=== PATIENT | female | born 1955 | race Caucasian/White ===

== ENCOUNTER → 2017-07-18 08:28 | Outpatient (CLI) | payer BC, SELFPAY ==
--- NOTE | 2017-07-18 08:30 | HPBD_ITS ---
STUDY: DUAL ENERGY X-RAY ABSORPTIOMETRY / DXA REASON FOR EXAM: Female, 62 years old. The patient is postmenopausal. Loss of height. TECHNIQUE: Bone Mineral Density (BMD) measurements of lumbar spine and bilateral hips were obtained. COMPARISON: Comparison is made with prior study dated September 27, 2010. FINDINGS: Lumbar Spine (L1-L4): g/cm2 (0.987) / T-score (-1.6) / Z-score (-0.1) Findings are suggestive of osteopenia with a moderate fracture risk. Left Femur Total: g/cm2 (0.723) / T-score (-2.3) / Z-score (-1.1) Left Femoral Neck: g/cm2 (0.703) / T-score (-2.4) / Z-score (-1.0) Right Femur Total: g/cm2 (0.701) / T-score (-2.4) / Z-score (-1.3) Right Femoral Neck: g/cm2 (0.678) / T-score (-2.6) / Z-score (-1.2) The T-Scores on the most recent prior examination were: Lumbar Spine (L1-L4): There has been worsening of bone density since the previous examination. Left Femur Total: which represents an improvement of 0.3%. Right Femur Total: which represents a worsening of 0.6%. HPBD/Dexa Bone Density Study (HP) IMPRESSION: The patient is considered osteoporotic as outlined below according to World Jeet Organization (WHO) criteria with a high fracture risk. There has been worsening of bone density since the previous examination. Reference Information: The T-score is the number of standard deviations above or below the standard which is normal for young adults at their peak bone mineral density. The World Health Organization (WHO) interprets the T-scores as follows: Above -1 Normal bone density Between -1 and -2.5 Osteopenia Equal to / or below -2.5 Osteoporosis As a practical clinical guideline, osteopenia may be graded as follows: Mild -1 through -1.5 Moderate -1.6 through -2.0 Severe -2.1 through -2.4 The Z-score is the number of standard deviations above or below age-matched controls. A Z-score of less than -1.5 would be considered abnormal. References: 1. NIH Osteoporosis and Related Bone Diseases http://www.osteo.org 2. International Society for Clinical Densitometry http://www.iscd.org 3. National Osteoporosis Foundation http://www.nof.org Electronically Signed: Rah Kenney MD at 10:07 EST Tel [phone], Service support ,
== END ==
PROVIDERS: Family Provider Family Medicine; PCP Family Medicine; Visit Provider Obstetrics & Gynecology
DX: M81.0 Age-related osteoporosis without current pathological fracture (principal); Z78.0 Asymptomatic menopausal state
CPT/HCPCS: 77080

== ENCOUNTER → 2017-07-19 16:02 | Outpatient (CLI) | payer BC, SELFPAY ==
[2017-07-19 17:49] LABS: Calcium,Total 9.1 mg/dL (8.5-10.1)
[2017-07-20 11:25] LABS: Vitamin D,25 Hydroxy 12.2 ng/mL (19.95-100.01)
== END ==
PROVIDERS: Family Provider Family Medicine; PCP Family Medicine; Visit Provider Obstetrics & Gynecology
DX: M85.80 Other specified disorders of bone density and structure, unspecified site (principal)
CPT/HCPCS: 36415; 82306; 82310

== ENCOUNTER → 2017-08-06 15:48 | Outpatient (CLI) | payer BC, SELFPAY | PROVIDERS: Family Provider Family Medicine; PCP Family Medicine; Visit Provider Family Medicine | DX: J02.9 Acute pharyngitis, unspecified (principal) | CPT/HCPCS: 87070 ==

== ENCOUNTER → 2018-01-08 08:01 | Outpatient (CLI) | payer BC, SELFPAY ==
--- NOTE | 2018-01-08 08:03 | BI_ITS ---
MAMMOGRAPHY - BILATERAL SCREENING REASON FOR EXAM: Female, 62 years old. Routine annual screening examination. PERTINENT HISTORY: Non-contributory. TECHNIQUE: Digital bilateral breast inocencia (3D mammographic acquisition) in the CC and MLO projections. 2-D mediolateral oblique (MLO) and craniocaudad (CC) views of both breasts were obtained. CAD: Full Field Digital Mammography with Computer Added Detection was performed. COMPARISON: Comparison is made with prior examination dated December 18, 2016 and December 09, 2015. FINDINGS: Breast Composition: The breasts are heterogeneously dense, which may obscure small masses. There are no dominant masses or suspicious calcifications. No other significant abnormalities are identified. There has been no significant change since the prior study. BI/SCREENING MAMM (CAD), BILAT IMPRESSION: Stable bilateral screening mammogram. Yearly follow-up mammogram recommended. (A) ASSESSMENT CATEGORY: BIRADS Category 1: Negative. A letter regarding these results will be sent to the patient by the facility within 30 days. Approximately 10% of breast cancers are not detected by mammography. A normal mammogram should not delay biopsy of a clinically suspicious abnormality. [id number] Electronically Signed: Rah Kenney MD at 10:15 EDT Tel [phone], Service support ,
== END ==
PROVIDERS: Family Provider Family Medicine; PCP Family Medicine; Visit Provider Obstetrics & Gynecology
DX: Z12.31 Encounter for screening mammogram for malignant neoplasm of breast (principal)
CPT/HCPCS: 77063; 77067

== ENCOUNTER → 2018-01-18 08:58 | Outpatient (CLI) | payer BC, SELFPAY ==
[2018-01-18 11:21] LABS: Calcium,Total 9.3 mg/dL (8.5-10.1)
[2018-01-18 11:32] LABS: Vitamin D,25 Hydroxy 55.4 ng/mL (29.95-100.01)
== END ==
PROVIDERS: Visit Provider Obstetrics & Gynecology
DX: M81.0 Age-related osteoporosis without current pathological fracture (principal)
CPT/HCPCS: 36415; 82306; 82310

== ENCOUNTER → 2019-01-09 07:23 | Outpatient (CLI) | payer BC, SELFPAY ==
--- NOTE | 2019-01-09 06:59 | BI_ITS ---
MAMMOGRAPHY - BILATERAL SCREENING REASON FOR EXAM: Female, 63 years old. Routine annual screening examination. PERTINENT HISTORY: Aunt with breast cancer. TECHNIQUE: Digital bilateral breast lavon (3D mammographic acquisition) in the CC and MLO projections. 2-D mediolateral oblique (MLO) and craniocaudad (CC) views of both breasts were obtained. CAD: Full Field Digital Mammography with Computer Added Detection was performed. COMPARISON: Comparison is made with prior examination dated January 08, 2018 and December 18, 2016. FINDINGS: Breast Composition: The breasts are heterogeneously dense, which may obscure small masses. There are no dominant masses or suspicious calcifications. No other significant abnormalities are identified. There has been no significant change since the prior study. BI/SCREEN MAMM (CAD) W/LAVON BILAT IMPRESSION: Stable bilateral screening mammogram. Yearly follow-up mammogram recommended. (A) ASSESSMENT CATEGORY: BIRADS Category 1: Negative. A letter regarding these results will be sent to the patient by the facility within 30 days. Approximately 10% of breast cancers are not detected by mammography. A normal mammogram should not delay biopsy of a clinically suspicious abnormality. [id number] Electronically Signed: Rah Kenney, at 9:35 EDT , Service support ,
== END ==
PROVIDERS: Family Provider Family Medicine; PCP Family Medicine; Referring Provider Obstetrics & Gynecology; Visit Provider Obstetrics & Gynecology
DX: Z12.31 Encounter for screening mammogram for malignant neoplasm of breast (principal)
CPT/HCPCS: 77063; 77067

== ENCOUNTER → 2019-02-24 09:44 | Outpatient (CLI) | payer MEDICARE, OTHER, SELFPAY ==
[2019-02-24 12:37] LABS: Anion Gap 5 (5-15); BUN 20 mg/dL (7-18); BUN/Creat Ratio 24.5 RATIO (10-20); Calcium,Total 8.7 mg/dL (8.5-10.1); Chloride 107 mmol/L (98-107); Cholesterol 173 mg/dL (200); Creatinine, Serum 0.82 mg/dL (0.55-1.02); EST Glomerular Filtration Rate 75 mL/min (>60); Est Glom Filt Rate - Afr Amer 90 mL/min (>60); Glucose 90 mg/dL (74-106); High Density Lipoprotein 70 mg/dL; Potassium 3.7 mmol/L (3.5-5.1); Sodium Level 142 mmol/L (136-145); Triglycerides 99 mg/dL; Very Low Density Lipoprotein 20 mg/dL (5-40)
== END ==
PROVIDERS: Family Provider Family Medicine; PCP Family Medicine; Visit Provider Family Medicine
DX: Z13.1 Encounter for screening for diabetes mellitus (principal); Z13.220 Encounter for screening for lipoid disorders
CPT/HCPCS: 36415; 80048; 80061

== ENCOUNTER → 2019-08-06 09:48 | Outpatient (CLI) | payer MEDICARE, OTHER, SELFPAY ==
--- NOTE | 2019-08-06 09:56 | BD_ITS ---
STUDY: DUAL ENERGY X-RAY ABSORPTIOMETRY / DXA REASON FOR EXAM: Female, 64 years old. Unsure of mitzi- age. Pat is 124# and 4 and quot;11.5 and quot; a loss of 2 and quot; per pat. Takes calcium. Fosamax for 2 years. Exercises moderately and mother has osteo. TECHNIQUE: Bone Mineral Density (BMD) measurements of lumbar spine and bilateral hips were obtained. COMPARISON: Comparison is made with prior study dated July 18, 2017. FINDINGS: Lumbar Spine (L1-L4): g/cm2 (0.976) / T-score (-1.6) / Z-score (0.0) Findings are suggestive of osteopenia with a moderate fracture risk. Left Femur Total: g/cm2 (0.726) / T-score (-2.2) / Z-score (-1.0) Left Femoral Neck: g/cm2 (0.722) / T-score (-2.3) / Z-score (-0.8) Right Femur Total: g/cm2 (0.685) / T-score (-2.6) / Z-score (-1.3) Right Femoral Neck: g/cm2 (0.697) / T-score (-2.5) / Z-score (-1.0) The T-Scores on the most recent prior examination were: Lumbar Spine (L1-L4): There has been improvement of bone density since the previous examination. Left Femur Total: which represents an improvement of 0.4%. Right Femur Total: which represents a worsening of 2.3%. BD/Dexa Bone Density Study IMPRESSION: The patient is considered osteoporotic as outlined below according to World Jeet Organization (WHO) criteria with a high fracture risk. There has been improvement of bone density since the previous examination. Reference Information: The T-score is the number of standard deviations above or below the standard which is normal for young adults at their peak bone mineral density. The World Health Organization (WHO) interprets the T-scores as follows: Above -1 Normal bone density Between -1 and -2.5 Osteopenia Equal to / or below -2.5 Osteoporosis As a practical clinical guideline, osteopenia may be graded as follows: Mild -1 through -1.5 Moderate -1.6 through -2.0 Severe -2.1 through -2.4 The Z-score is the number of standard deviations above or below age-matched controls. A Z-score of less than -1.5 would be considered abnormal. References: 1. NIH Osteoporosis and Related Bone Diseases http://www.osteo.org 2. International Society for Clinical Densitometry http://www.iscd.org 3. National Osteoporosis Foundation http://www.nof.org Electronically Signed: Rah Kenney, at 15:18 EST , Service support ,
== END ==
LOC: OPBD 09:50
PROVIDERS: PCP Family Medicine; Referring Provider Obstetrics & Gynecology; Visit Provider Obstetrics & Gynecology
DX: M81.0 Age-related osteoporosis without current pathological fracture (principal)
CPT/HCPCS: 77080

== ENCOUNTER → 2020-04-19 | Outpatient (CLI) | payer MEDICARE, OTHER, SELFPAY | END | disposition home or self-care (01) | LOC: LABSPEC 15:25 | PROVIDERS: PCP Family Medicine; Referring Provider Family Medicine; Visit Provider Family Medicine | DX: Z20.828 Contact with and (suspected) exposure to other viral communicable diseases (principal) | CPT/HCPCS: 87635; U0003 ==

== ENCOUNTER → 2020-11-03 16:14 | Outpatient (CLI) | payer MEDICARE, OTHER, SELFPAY ==
[2020-11-03 18:08] LABS: T4 Free Direct 1.15 ng/dL (0.76-1.46); Thyroid Stim Hormone (TSH) 1.24 uIU/mL (0.358-3.74)
== END ==
PROVIDERS: PCP Family Medicine; Visit Provider Obstetrics & Gynecology
DX: E03.9 Hypothyroidism, unspecified (principal)
CPT/HCPCS: 36415; 84439; 84443; 84481

== ENCOUNTER → 2020-11-16 14:43 | Outpatient (CLI) | payer MEDICARE, OTHER, SELFPAY ==
--- NOTE | 2020-11-16 14:47 | US_ITS ---
STUDY: THYROID ULTRASOUND REASON FOR EXAM: Female, 65 years old. GOITER TECHNIQUE: Ultrasound evaluation of the thyroid was performed with real-time and static zaldivar-scale imaging. COMPARISON: None. FINDINGS: RIGHT LOBE: The right lobe of the thyroid gland measures 4.3 x 1.9 x 1.6 cm. There is a homogeneous echotexture. There is a 3 x 3 x 2 mm cystic structure right thyroid. LEFT LOBE: The left lobe of the thyroid gland measures 4.2 x 1.6 x 1.2 cm. There is a homogeneous echotexture. There are no demonstrated solid, cystic or complex lesions. ISTHMUS: The isthmus measures 2 mm . The regional lymph nodes are normal. US/Thyroid IMPRESSION: Nearly homogeneous normal-sized bilateral thyroid. Small benign appearing cyst right thyroid. Follow-up thyroid ultrasound if appropriate in 6 months or as clinically appropriate. Electronically Signed: Liz Delacruz MD at 6:25 EDT Tel , Service support ,
--- NOTE | 2020-11-16 15:00 | BI_ITS ---
MAMMOGRAPHY - BILATERAL SCREENING REASON FOR EXAM: Female, 65 years old. Routine annual screening examination. PERTINENT HISTORY: Aunt with breast cancer. TECHNIQUE: Digital bilateral breast lavon (3D mammographic acquisition) in the CC and MLO projections. 2-D mediolateral oblique (MLO) and craniocaudad (CC) views of both breasts were obtained. CAD: Full Field Digital Mammography with Computer Added Detection was performed. COMPARISON: Comparison is made with prior examination dated 01/09/2019 and 01/08/2018. FINDINGS: Breast Composition: The breasts are heterogeneously dense, which may obscure small masses. There are no dominant masses or suspicious calcifications. No other significant abnormalities are identified. There has been no significant change since the prior study. BI/SCRN MAMM (CAD)W/LAVON BILAT IMPRESSION: Stable bilateral screening mammogram. Yearly follow-up mammogram recommended. (A) ASSESSMENT CATEGORY: BIRADS Category 1: Negative. A letter regarding these results will be sent to the patient by the facility within 30 days. Approximately 10% of breast cancers are not detected by mammography. A normal mammogram should not delay biopsy of a clinically suspicious abnormality. [id number] Electronically Signed: Rah Kenney MD at 15:31 EDT , Service support ,
== END ==
PROVIDERS: PCP Family Medicine; Referring Provider Obstetrics & Gynecology; Visit Provider Obstetrics & Gynecology
DX: Z12.31 Encounter for screening mammogram for malignant neoplasm of breast (principal); E04.9 Nontoxic goiter, unspecified; E03.9 Hypothyroidism, unspecified
CPT/HCPCS: 76536; 77063; 77067

== ENCOUNTER → 2021-04-01 | Outpatient (CLI) | payer MEDICARE, OTHER, SELFPAY | END | disposition home or self-care (01) | PROVIDERS: PCP Family Medicine; Visit Provider Family Medicine | DX: J01.90 Acute sinusitis, unspecified (principal) | CPT/HCPCS: 87635; U0005; U0003 ==

== ENCOUNTER → 2021-05-23 10:14 | Outpatient (CLI) | payer MEDICARE, OTHER, SELFPAY ==
--- NOTE | 2021-05-23 10:25 | US_ITS ---
STUDY: THYROID ULTRASOUND REASON FOR EXAM: Female, 65 years old. Follow-up for known cyst TECHNIQUE: Ultrasound evaluation of the thyroid was performed with real-time and static zaldivar-scale imaging. COMPARISON: None. FINDINGS: RIGHT LOBE: The right lobe of the thyroid gland measures 4.3 x 1.7 x 1.4 cm. There is a homogeneous echotexture. There is a stable 2 x 2 x 2 mm cyst. LEFT LOBE: The left lobe of the thyroid gland measures 4.3 x 1.6 x 1.0 cm. There is a homogeneous echotexture. There are no demonstrated solid, cystic or complex lesions. ISTHMUS: The isthmus measures 3 mm. The regional lymph nodes are normal. US/Thyroid IMPRESSION: Stable homogeneous ultrasound was stable 2 mm cyst in the right lobe. No suspicious solid mass or hyperemia. No specific follow-up needed Electronically Signed: Chandrakant Schneider MD at 16:23 EST , Service support ,
== END ==
PROVIDERS: PCP Family Medicine; Referring Provider Obstetrics & Gynecology; Visit Provider Obstetrics & Gynecology
DX: E04.1 Nontoxic single thyroid nodule (principal)
CPT/HCPCS: 76536

== ENCOUNTER → 2021-10-21 | Outpatient (CLI) | payer MEDICARE, OTHER, SELFPAY ==
[2021-10-21 12:46] LABS: Vitamin D,25 Hydroxy 50.1 ng/mL
[2021-10-21 12:47] LABS: Calcium,Total 9.9 mg/dL (8.5-10.1)
== END | disposition home or self-care (01) ==
LOC: WOBLAB 11:03
PROVIDERS: PCP Family Medicine; Visit Provider Obstetrics & Gynecology
DX: E55.9 Vitamin D deficiency, unspecified (principal)
CPT/HCPCS: 36415; 82306; 82310

== ENCOUNTER → 2021-11-17 | Outpatient (CLI) | payer MEDICARE, OTHER, SELFPAY ==
--- NOTE | 2021-11-17 09:05 | BI_ITS ---
MAMMOGRAPHY - BILATERAL SCREENING REASON FOR EXAM: Female, 66 years old. Routine annual screening examination. PERTINENT HISTORY: Non-contributory. TECHNIQUE: Digital bilateral breast lavon (3D mammographic acquisition) in the CC and MLO projections. 2-D mediolateral oblique (MLO) and craniocaudad (CC) views of both breasts were obtained. CAD: Full Field Digital Mammography with Computer Added Detection was performed. COMPARISON: Comparison is made with prior study dated 11/16/2020 and 01/09/2019. FINDINGS: Breast Composition: The breasts are heterogeneously dense, which may obscure small masses. There are no dominant masses or suspicious calcifications. No other significant abnormalities are identified. There has been no significant change since the prior study. BI/SCRN MAMM (CAD)W/LAVON BILAT IMPRESSION: Stable bilateral screening mammogram. Yearly follow-up mammogram recommended. (A) ASSESSMENT CATEGORY: BIRADS Category 1: Negative. A letter regarding these results will be sent to the patient by the facility within 30 days. Approximately 10% of breast cancers are not detected by mammography. A normal mammogram should not delay biopsy of a clinically suspicious abnormality. [id number] Electronically Signed: Rah Kenney MD at 9:48 EDT ,
--- NOTE | 2021-11-17 09:25 | BD_ITS ---
STUDY: DUAL ENERGY X-RAY ABSORPTIOMETRY / DXA REASON FOR EXAM: Female, 66 years old. 733.00OsteoporosisBONE DENSITY REASON FOR EXAM TECHNIQUE: Bone Mineral Density (BMD) measurements of lumbar spine and bilateral hips were obtained. COMPARISON: Comparison is made with prior study dated 08/06/2019. FINDINGS: Lumbar Spine (L1-L4): g/cm2 (0.894) / T-score (-1.3) / Z-score (0.7) Findings are suggestive of osteopenia with a low fracture risk. Left Femur Total: g/cm2 (0.664) / T-score (-2.3) / Z-score (-0.9) Left Femoral Neck: g/cm2 (0.580) / T-score (-2.4) / Z-score (-0.7) Right Femur Total: g/cm2 (0.649) / T-score (-2.4) / Z-score (-1.0) Right Femoral Neck: g/cm2 (0.577) / T-score (-2.5) / Z-score (-0.8) The T-Scores on the most recent prior examination were: Lumbar Spine (L1-L4): There has been improvement of bone density since the previous examination. Left Femur Total: which represents a worsening of 0.5%. Right Femur Total: which represents an improvement of 3.4%. BD/Dexa Bone Density Study IMPRESSION: The patient is considered osteopenic as outlined below according to World Jeet Organization (WHO) criteria with a high fracture risk. There has been improvement of bone density since the previous examination. Reference Information: The T-score is the number of standard deviations above or below the standard which is normal for young adults at their peak bone mineral density. The World Health Organization (WHO) interprets the T-scores as follows: Above -1 Normal bone density Between -1 and -2.5 Osteopenia Equal to / or below -2.5 Osteoporosis As a practical clinical guideline, osteopenia may be graded as follows: Mild -1 through -1.5 Moderate -1.6 through -2.0 Severe -2.1 through -2.4 The Z-score is the number of standard deviations above or below age-matched controls. A Z-score of less than -1.5 would be considered abnormal. References: 1. NIH Osteoporosis and Related Bone Diseases www osteo.org 2. International Society for Clinical Densitometry www iscd.org 3. National Osteoporosis Foundation www nof.org Electronically Signed: Rah Kenney MD at 12:54 EDT ,
== END | disposition home or self-care (01) ==
LOC: OPBD 09:03
PROVIDERS: PCP Family Medicine; Referring Provider Obstetrics & Gynecology; Visit Provider Obstetrics & Gynecology
DX: Z12.31 Encounter for screening mammogram for malignant neoplasm of breast (principal); M81.0 Age-related osteoporosis without current pathological fracture
CPT/HCPCS: 77063; 77067; 77080

== ENCOUNTER → 2022-06-01 | Outpatient (CLI) | payer MEDICARE, OTHER, SELFPAY ==
[2022-06-01 17:55] LABS: Absolute Lymphocyte Count 2.35 X10^3/uL (0.83-4.51); Absolute Neutrophil Count 4.7 X10^3/uL (2.0-7.7); Basophil# 0.02 X10^3/uL; Basophil% 0.3 % (0-1); Eosinophil# 0.12 X10^3/uL; Eosinophils% 1.5 % (0-5); Hematocrit 44.8 % (37-47); Hemoglobin 14.9 g/dL (12.0-15.0); Lymphocyte # 2.35 X10^3/ul (0.83-4.51); Lymphocyte % 29.8 % (19-41); Mean Corp Hgb Conc 33.3 g/dL (32-36); Mean Corpuscular Volume 90.3 fL (81-99); Mean Platelet Vol. 10.8 fl (6.2-12.0); Monocyte% 8.9 % (0-10); NRBC Flagged by Analyzer 0 % (0-5); Neutrophil # 4.67 X10^3/uL (2.7-7.7); Neutrophil % 59.2 % (47-70); Platelet Count 302 K/mm3 (150-450); RBC Distribution Width CV 12.8 % (11.6-14.6); RBC Distribution Width SD 41.9 fl (35.1-43.9); Red Blood Count 4.96 M/mm3 (4.2-5.4); White Blood Count 7.9 K/mm3 (4.4-11.0)
[2022-06-01 18:17] LABS: BUN 14 mg/dL (7-18); Creatinine, Serum 0.92 mg/dL (0.55-1.02); Glucose 82 mg/dL (74-106)
[2022-06-01 18:18] LABS: ALB/GLOB Ratio 1.4 RATIO (0.9-2.4); AST(SGOT) 13 U/L (15-37); Alanine Aminotransfer ALT/SGPT 20 U/L (13-56); Alkaline Phosphatase 94 U/L (45-117); Anion Gap 7 (5-15); BUN/Creat Ratio 15.2 RATIO (10-20); Calcium,Total 9.8 mg/dL (8.5-10.1); Chloride 105 mmol/L (98-107); EST Glomerular Filtration Rate 64 mL/min (>60); Est Glom Filt Rate - Afr Amer 78 mL/min (>60); Ferritin 88 ng/mL (8-252); Globulin 2.9 g/dL (2.2-4.2); Potassium 3.9 mmol/L (3.5-5.1); Protein, Total 6.9 g/dL (6.4-8.2); Sodium Level 142 mmol/L (136-145)
[2022-06-01 19:36] LABS: Vitamin B12 283 pg/mL (211-911)
== END | disposition home or self-care (01) ==
LOC: MFPLAB 16:07
PROVIDERS: PCP Family Medicine; Referring Provider Family Medicine; Visit Provider Family Medicine
DX: R53.83 Other fatigue (principal)
CPT/HCPCS: 36415; 80053; 82607; 82728; 84443; 85025

== ENCOUNTER → 2022-07-10 | Outpatient (CLI) | payer MEDICARE, OTHER, SELFPAY ==
[2022-07-10 10:44] LABS: Vitamin B12 > 2000 pg/mL (211-911)
== END | disposition home or self-care (01) ==
LOC: MFPLAB 08:31
PROVIDERS: PCP Family Medicine; Visit Provider Nurse Practitioner Family
DX: E53.8 Deficiency of other specified B group vitamins (principal)
CPT/HCPCS: 36415; 82607

== ENCOUNTER → 2022-10-23 | Outpatient (CLI) | payer MEDICARE, OTHER, SELFPAY ==
[2022-10-23 10:51] LABS: Vitamin B12 902 pg/mL (211-911)
== END | disposition home or self-care (01) ==
LOC: MFPLAB 08:38
PROVIDERS: PCP Family Medicine; Visit Provider Family Medicine
DX: E53.8 Deficiency of other specified B group vitamins (principal)
CPT/HCPCS: 36415; 82607

== ENCOUNTER → 2023-01-03 | Outpatient (CLI) | payer MEDICARE, OTHER, SELFPAY | END | disposition home or self-care (01) | PROVIDERS: PCP Family Medicine; Visit Provider Family Medicine | DX: J02.9 Acute pharyngitis, unspecified (principal) | CPT/HCPCS: 87070 ==

== ENCOUNTER → 2023-01-10 | Outpatient (CLI) | payer MEDICARE, OTHER, SELFPAY ==
--- NOTE | 2023-01-10 07:45 | BI_ITS ---
MAMMOGRAPHY - BILATERAL SCREENING REASON FOR EXAM: Female, 67 years old. Routine annual screening examination. PERTINENT HISTORY: Non-contributory. TECHNIQUE: Digital bilateral breast lavon (3D mammographic acquisition) in the CC and MLO projections. 2-D mediolateral oblique (MLO) and craniocaudad (CC) views of both breasts were obtained. CAD: Full Field Digital Mammography with Computer Added Detection was performed. COMPARISON: Comparison is made with prior study dated November 17, 2021 and November 16, 2020. FINDINGS: Breast Composition: The breasts are heterogeneously dense, which may obscure small masses. There are no dominant masses or suspicious calcifications. No other significant abnormalities are identified. There has been no significant change since the prior study. BI/SCRN MAMM (CAD)W/LAVON BILAT IMPRESSION: Stable bilateral screening mammogram. Yearly follow-up mammogram recommended. (A) ASSESSMENT CATEGORY: BIRADS Category 1: Negative. A letter regarding these results will be sent to the patient by the facility within 30 days. Approximately 10% of breast cancers are not detected by mammography. A normal mammogram should not delay biopsy of a clinically suspicious abnormality. [id number] Electronically Signed: Rah Kenney MD at 9:41 EDT ,
== END | disposition home or self-care (01) ==
LOC: OPBI 07:44
PROVIDERS: PCP Family Medicine; Referring Provider Nurse Practitioner Women's Health; Visit Provider Nurse Practitioner Women's Health
DX: Z12.31 Encounter for screening mammogram for malignant neoplasm of breast (principal)
CPT/HCPCS: 77063; 77067

== ENCOUNTER → 2023-04-30 | Outpatient (CLI) | payer MEDICARE, OTHER, SELFPAY ==
[2023-04-30 13:38] LABS: Vitamin B12 995 pg/mL (211-911)
== END | disposition home or self-care (01) ==
LOC: MFPLAB 11:13
PROVIDERS: PCP Family Medicine; Visit Provider Family Medicine
DX: E53.8 Deficiency of other specified B group vitamins (principal)
CPT/HCPCS: 36415; 82607

== ENCOUNTER → 2023-05-07 | Outpatient (CLI) | payer MEDICARE, OTHER, SELFPAY ==
[2023-05-07 17:44] LABS: Absolute Lymphocyte Count 1.65 X10^3/uL (0.83-4.51); Absolute Neutrophil Count 3.6 X10^3/uL (2.0-7.7); Basophil# 0.04 X10^3/uL; Basophil% 0.6 % (0-1); Eosinophil# 0.44 X10^3/uL; Hematocrit 44.2 % (37-47); Hemoglobin 14.7 g/dL (12.0-15.0); Lymphocyte # 1.65 X10^3/ul (0.83-4.51); Lymphocyte % 26.1 % (19-41); Mean Corp Hgb Conc 33.3 g/dL (32-36); Mean Corpuscular Hgb 29.6 pg (27.0-32.0); Mean Corpuscular Volume 88.9 fL (81-99); Mean Platelet Vol. 10.3 fl (6.2-12.0); Monocyte% 9.5 % (0-10); NRBC Flagged by Analyzer 0 % (0-5); Neutrophil # 3.57 X10^3/uL (2.7-7.7); Neutrophil % 56.5 % (47-70); Platelet Count 302 K/mm3 (150-450); RBC Distribution Width CV 12.6 % (11.6-14.6); RBC Distribution Width SD 41.1 fl (35.1-43.9); Red Blood Count 4.97 M/mm3 (4.2-5.4); White Blood Count 6.3 K/mm3 (4.4-11.0)
[2023-05-07 17:59] LABS: Erythrocyte Sedimentation Rate 9 mm/hr (0-30)
[2023-05-07 18:00] LABS: Vitamin D,25 Hydroxy 68.5 ng/mL
[2023-05-07 18:33] LABS: ALB/GLOB Ratio 1.1 RATIO (0.9-2.4); AST(SGOT) 18 U/L (15-37); Alanine Aminotransfer ALT/SGPT 16 U/L (13-56); Albumin, Serum 3.7 g/dL (3.2-5.0); Alkaline Phosphatase 105 U/L (45-117); Anion Gap 7 (5-15); BUN 16 mg/dL (7-18); BUN/Creat Ratio 17.1 RATIO (10-20); CRP < 2.90 mg/L (0.0-3.0); Calcium,Total 9.3 mg/dL (8.5-10.1); Chloride 106 mmol/L (98-107); Creatinine, Serum 0.94 mg/dL (0.55-1.02); EST Glomerular Filtration Rate 63 mL/min (>60); Est Glom Filt Rate - Afr Amer 76 mL/min (>60); Globulin 3.4 g/dL (2.2-4.2); Glucose 96 mg/dL (74-106); Protein, Total 7.1 g/dL (6.4-8.2); Sodium Level 140 mmol/L (136-145); Thyroid Stim Hormone (TSH) 1.14 uIU/mL (0.358-3.74)
[2023-05-09 14:09] LABS: ANTINUCLEAR ANTIBODIES DIRECT Negative (Negative)
== END | disposition home or self-care (01) ==
PROVIDERS: PCP Family Medicine; Visit Provider Family Medicine
DX: R53.83 Other fatigue (principal); R82.90 Unspecified abnormal findings in urine
CPT/HCPCS: 36415; 80053; 82306; 84443; 85025; 85652; 86038; 86140; 87086

== ENCOUNTER 2023-05-15 07:00 | Emergency (ER) | payer MEDICARE, OTHER, SELFPAY ==
[2023-05-15 07:00] VITALS: BP 129/70; PULSE 83; RESP 13; TEMP 36.1; O2SAT 99; BMI 29.4
[2023-05-15 07:04] VITALS: O2SAT 97
--- NOTE | 2023-05-15 07:15 | CT_ITS ---
INDICATION: fall/LOC EXAMINATION: CT BRAIN - CT Head or Brain W/O Contrast Injection TECHNIQUE: Multiple axial images were obtained of the head without intravenous contrast. A radiation dose optimization technique was used for this scan. IV Contrast dosage and agent: None. COMPARISON: None FINDINGS: BRAIN PARENCHYMA: No intra- or extra-axial hemorrhage. No evidence of acute infarct. No intracranial mass or mass effect. Unremarkable white matter for age. There is preservation of the zaldivar/white matter interface. Posterior fossa structures are unremarkable. Mild carotid and vertebral atherosclerosis. CSF SPACES: Cerebral volume appropriate for age. No hydrocephalus. Basal cisterns are patent. CALVARIUM, SKULL BASE, PARANASAL SINUSES AND MASTOID AIR CELLS:No acute osseous finding. Mild left maxillary sinus mucoperiosteal thickening.. Mastoid air cells are clear. ORBITS: Both globes, extraocular muscles, optic nerves and retrobulbar fat appear unremarkable. ASPECTS Score for Acute Strokes: 10 CT/Brain/Head without Contrast IMPRESSION: No CT evidence of acute intracranial hemorrhage or injury. Mild atherosclerosis. Electronically Signed: Noah Barrett MD at 7:58 EST ,
--- NOTE | 2023-05-15 07:17 | EDS_ITS ---
HPI HPI - Fall History of Present Illness Chief Complaint: Fall Informant: patient, family and EMS Occured/Mechanism Occurred: Today (Just prior to arrival) Narrative Narrative: Patient woke up and was coming down the stairs, she felt lightheaded and then does not remember the fall, but apparently passed out and fell down 3 steps to the landing below. She denies remembering any other prodromal symptoms other than the lightheadedness. She states she feels like she hurt her mid and low back but denies any other injuries. states she has a bruise on her right shoulder, and there was a chunk of hair on the railing or something nearby where she fell. She has cataract surgery coming up and has been feeling anxious about it, and so her doctor prescribed her sertraline because of that and she took the first pill last night. In addition, her appetite has been very poor lately and so is her oral intake. She is on no anticoagulants for any reason, does not feel like she hit her head, no history of DVT or PE that she knows of, no recent immobilization, hospitalization, or surgery. No history of heart problems that she knows of. Most of her medical issues in the past focused around vitamin deficiencies. PFSH PFSH Medical History no medical history no medical history Home Medications sertraline 50 mg tablet 50 mg PO Q24H 05/15/23 [History Last Taken Unknown] tramadol 50 mg tablet 50 mg PO Q6H PRN pain 3 days #12 tabs 05/15/23 [Rx Last Taken Unknown] Allergy/AdvReac Type Severity Reaction Status Date / Time minocycline Allergy Other Verified 05/15/23 07:04 azithromycin AdvReac Mild Upset Verified 05/15/23 07:04 [From Zithromax Z-Victor M] Stomach Social History Smoking Status: Never smoker ROS ROS ED Constitutional Constitutional ED: Reports anorexia; Denies chills or fever(s) Eyes Eyes: Denies change in vision or diplopia ENT ENT ED: Denies ear pain, epistaxis, facial pain or rhinorrhea Cardiovascular Cardiovascular: Denies chest pain or palpitations Respiratory/Chest Respiratory/Chest: Denies cough or dyspnea Gastrointestinal Gastrointestinal: Denies abdominal pain, diarrhea, melena, nausea or vomiting Genitourinary Genitourinary ED: Denies dysuria or hematuria Musculoskeletal Musculoskeletal: Reports back pain; Denies extremity pain or neck pain Integumentary Denies abscess, Abrasions, laceration or rash Neurologic Neurologic: Denies confusion, headache(s), paresthesias or weakness EXAM Physical Exam Const Vital Signs: 05/15/23 07:00 05/15/23 07:04 05/15/23 08:00 Temperature 97 F L Temperature Source Temporal Pulse Rate 83 103 H Respiratory Rate 13 26 H Respiratory Effort Normal Non-Labored Respiratory Depth Normal Respiratory Pattern Normal Blood Pressure 129/70 H 141/81 H Blood Pressure Mean 89 101 Pulse Ox 99 97 102 Oxygen Delivery Method Room Air Room Air Room Air 05/15/23 09:10 Temperature Temperature Source Pulse Rate 82 Respiratory Rate 14 Respiratory Effort Respiratory Depth Respiratory Pattern Blood Pressure 137/73 H Blood Pressure Mean 94 Pulse Ox 96 Oxygen Delivery Method Room Air Positive well nourished and well developed General Appearance ED: well developed and NAD HEENT Reports TM's clear and nasal mucous membranes and turbinates normal atraumatic Face and Sinus: Negative for facial tenderness Tympanic Membrane ED: Yes TM's clear Eyes PERRL and EOMs intact bilaterally Visual Acuity: other Other Details: no entrapment or pain with extraocular movements Neck full ROM and supple General: Negative for tenderness Chest Wall inspection of chest normal and palpation of chest normal Chest: symmetrical chest wall rise; Negative for crepitus or tenderness Resp normal respiratory effort and clear to auscultation bilaterally Percussion: other equal BS bilat Cardio no murmurs Rate: regular rate; Negative for bradycardia or tachycardic Rhythm: regular rhythm GI normal to inspection, nondistended, normoactive bowel sounds, soft to palpation and non-tender Back/Spine Cervical Spine: Negative for cervical spine tenderness Thoracic Spine / Upper Back: thoracic spinal tenderness other (No objective sign of trauma or step-off. Tender through most of the mid and lower thoracic midline mildly.) Lumbar Spine / Lower Back: lumbar spinal tenderness L1 (Mild no signs of trauma or step-off) Extremity normal to inspection and full ROM Extremity Narrative: Intact 2+ dorsalis pedis and radial pulses bilaterally General Extremety ED: Negative for tenderness Neuro oriented x3, CN's II-XII intact bilaterally, moves all extremities, no focal motor deficits and no sensory deficits noted Nyla Coma Scale: document GCS findings Spontaneous Obeys Commands Oriented 15 Sensorium / Orientation: awake and alert Psych mental status grossly normal and thought process normal Skin no wounds Lesions: no lesions Rashes: no rashes MDM MDM MDM Narrative Medical decision making narrative: Patient's injury seems to only be her back. She has a mild tenderness in the right trapezius muscle with there is no bony prominence, she has full range of motion of all joints of all 4 extremities including her right shoulder so I am at a low suspicion for major joint injury anywhere. Differential for the cause of her fall includes dehydration, medication reaction since she took her first dose of sertraline before she went to bed last night, pulmonary embolus, dysrhythmia, acute FL, symptomatic anemia, symptomatic bradycardia. This is not an exclusive list. Labs, chest x-ray were obtained in addition to an EKG which is normal, chest x-ray 1 view on my interpretation normal, she has no tenderness when I palpate the ribs or compress the rib cage laterally, however when she was getting EKG she told the word processor technician and me later that her left chest was bothering her a little, fairly nondescript and not severely, nonpleuritic. Although she tumbled down several steps and has some contusions, I did a D-dimer in order to try to rule out pulmonary embolus, but it came back significantly elevated over 10. Therefore even though we sent her for CT of the head, we sent her back for CTA of the chest in order to rule out pulmonary embolus and also evaluate for any occult injuries in the left hemithorax. Prior to that thoracic and lumbar x-rays were obtained, 2 views of the thoracic spine on my interpretation is positive for fracture of T9, 3 views of the lumbar spine on my interpretation is negative for fracture. She was offered analgesics and declined. CT of the head was obtained in order to rule out intracranial injury, I reviewed the images and report which I agree with, negative for anything acute. CTA of the chest images I reviewed, I agree with the report as well, basically shows the T9 compression fracture, and no other intrathoracic injury and no evidence of a pulmonary embolus as etiology for her syncope episode. She eventually excepted some ibuprofen for pain, before that we got her up and she was a little wobbly so we waited a while The second troponin which was negative, she got the ibuprofen and then she stood up with family and she did very well and felt fine and ready to go home. She was offered admission but declined. Will have her follow-up with spine as an outpatient, she was given lifting and bending restrictions until then, and she is comfortable with that plan. We discussed options for prescription she would like a prescription for tramadol, we discussed the unlikely potential for altered mental status and reasons to stop it, she can also take [id number] medications and other methods of supportive care in the meantime Lab Data Attestation: I reviewed the patient's lab results. Labs: Laboratory Results - last 24 hr 05/15/23 05/15/23 07:05 09:40 WBC 7.4 RBC 4.82 Hgb 14.4 Hct 42.2 MCV 87.6 MCH 29.9 MCHC 34.1 RDW Std Deviation 39.6 RDW Coeff of Luis Manuel 12.5 Plt Count 259 MPV 10.4 Immature Gran % (Auto) 1.300 H Neut % (Auto) 63.7 Lymph % (Auto) 21.5 [place] % (Auto) 7.8 Eos % (Auto) 5.0 Baso % (Auto) 0.7 Absolute Neuts (auto) 4.7 Absolute Lymphs (auto) 1.60 Nucleated RBC % 0 D-Dimer Quant (PE/DVT) 10.65 H* Sodium 140 Potassium 4.0 Chloride 109 H Carbon Dioxide 27.0 Anion Gap 4 L BUN 18 Creatinine 0.81 Estim Creat Clear Calc 68.34 Est GFR (MDRD) Af Amer 90 Est GFR (MDRD) Non-Af 74 BUN/Creatinine Ratio 22.1 H Glucose 129 H Calcium 9.3 Troponin I High Sens 6 7 Radiography Diagnostic Testing: Clinical Impression(s) from Imaging Studies Brain CT 05/15/23 07:15 IMPRESSION: No CT evidence of acute intracranial hemorrhage or injury. Mild atherosclerosis. Electronically Signed: Noah Barrett MD at 7:58 EST , Chest X-Ray 05/15/23 07:35 IMPRESSION: Degenerative changes, as described above. No demonstrated acute cardiopulmonary process. Electronically Signed: John Madison MD at 8:06 EST , Lumbar Spine X-Ray 05/15/23 07:35 IMPRESSION: Degenerative changes of the spine, as detailed above. Electronically Signed: John Madison MD at 8:38 EST Reading Location ID and State: [address] [place] [address] , Service support , Thoracic Spine X-Ray 05/15/23 07:35 IMPRESSION: 1. There is a mild acute compression fracture T9 vertebral body with 20% loss of height and slight cortical offset/displacement. No additional acute fractures or compression deformities are present. Electronically Signed: John Madison MD at 8:36 EST Reading Location ID and State: [address] [place] [address] , Service support , Chest CTA 05/15/23 08:05 IMPRESSION: 1. An acute compression fracture of the T9 vertebral body with mild cortical offset and with approximately 20% loss of height is present. No additional acute vertebral body or posterior element fractures are seen. 2. Negative CTA chest examination, without a demonstrated pulmonary embolism or arterial dissection. Electronically Signed: John Madison MD at 9:11 EST Reading Location ID and State: [address] [place] [address] , Service support , Rhythm Strip Rhythm Strip: Sinus Rhythm Rate: 85 Ectopy: None EKG Initial EKG: Attestation: I personally reviewed and interpreted this EKG as follows: Interpretation: Sinus Rhythm and No Acute Injury Pattern (nml EKG) Discharge Plan Triage Chief Complaint: Fall ED Provider: Guzman Layne Dx/Rx/DC Orders Clinical Impression: Compression fracture of T9 vertebra, Fall down steps, Contusion of upper back, Syncope, Mild dehydration Instructions: Compression Fx Prescriptions: New tramadol 50 mg tablet 50 mg PO Q6H PRN (Reason: pain) 3 Days Qty: 12 0RF No Action sertraline 50 mg tablet 50 mg PO Q24H Primary Care Provider: Gabriela Coffman Referrals: Davy Chan, [Med Staff - Active Staff] - As soon as possible Gabriela Coffman, [Primary Care Provider] - 5-7 Days Activity Restrictions/Additional Instructions: Tylenol 650-1000 mg every 4-6 hours as needed for pain Ibuprofen 400-600 mg every 6-8 hours as needed for pain May add the tramadol to this as prescribed as needed. Ice to affected area as needed for pain. No lifting more than 5-10 pounds, limit how much you bend over to pick something up. Use pain as your guide and limit activities if it hurts. Disposition Disposition: Home, Self Care
[2023-05-15] MEDS: 0.9% Normal Saline (1000mL) 1,000 ML 999 ML IV (07:19)
[2023-05-15 07:23] LABS: Absolute Neutrophil Count 4.7 X10^3/uL (2.0-7.7); Basophil# 0.05 X10^3/uL; Basophil% 0.7 % (0-1); Eosinophil# 0.37 X10^3/uL; Hematocrit 42.2 % (37-47); Hemoglobin 14.4 g/dL (12.0-15.0); Lymphocyte % 21.5 % (19-41); Mean Corp Hgb Conc 34.1 g/dL (32-36); Mean Corpuscular Hgb 29.9 pg (27.0-32.0); Mean Corpuscular Volume 87.6 fL (81-99); Mean Platelet Vol. 10.4 fl (6.2-12.0); Monocyte# 0.58 X10^3/uL; Monocyte% 7.8 % (0-10); NRBC Flagged by Analyzer 0 % (0-5); Neutrophil # 4.74 X10^3/uL (2.7-7.7); Neutrophil % 63.7 % (47-70); Platelet Count 259 K/mm3 (150-450); RBC Distribution Width CV 12.5 % (11.6-14.6); RBC Distribution Width SD 39.6 fl (35.1-43.9); Red Blood Count 4.82 M/mm3 (4.2-5.4); White Blood Count 7.4 K/mm3 (4.4-11.0)
--- NOTE | 2023-05-15 07:30 | NURSING ---
NO OLD EKGS
--- NOTE | 2023-05-15 07:35 | RAD_ITS ---
STUDY: X-RAY - LUMBAR SPINE REASON FOR EXAM: Female, 67 years old. fall/injury TECHNIQUE: 2 view(s) of the lumbar spine were obtained. COMPARISON: None FINDINGS: Normal lumbar lordosis. There is no substantial scoliosis. There is a normal alignment of the vertebrae. Moderate disc space narrowing and anterior endplate spurring is present at L2-L3. Mild disc space narrowing is present at L3-L4. The remaining disc spaces are preserved. No visualized acute fracture or compression deformity. A densely calcified right uterine fibroid is present. The soft tissue structures are unremarkable. RAD/Lumbar Spine 2 or 3 Views IMPRESSION: Degenerative changes of the spine, as detailed above. Electronically Signed: John Madison MD at 8:38 EST ,
--- NOTE | 2023-05-15 07:35 | RAD_ITS ---
STUDY: X-RAY CHEST REASON FOR EXAM: Female, 67 years old. fall TECHNIQUE: Single AP portable view of the chest. COMPARISON: None. FINDINGS: The lungs are clear and expanded. There is no demonstrated pleural abnormality. Normal size heart. Normal mediastinum and cosmo. Normal visualized pulmonary arteries. There is atherosclerotic calcification of the aortic arch with tortuosity. There are diffuse degenerative changes of the visualized thoracic spine. Normal visualized ribs, clavicles, and shoulders. There is no demonstrated abnormality of the visualized soft tissue structures of the upper abdomen. RAD/Chest 1 View IMPRESSION: Degenerative changes, as described above. No demonstrated acute cardiopulmonary process. Electronically Signed: John Madison MD at 8:06 [facility] ,
--- NOTE | 2023-05-15 07:35 | RAD_ITS ---
STUDY: X-RAY - THORACIC SPINE REASON FOR EXAM: Female, 67 years old. fall/injury TECHNIQUE: 3 view(s) of the thoracic spine were obtained. COMPARISON: None. FINDINGS: There is a mild acute compression fracture T9 vertebral body with 20% loss of height and slight cortical offset/displacement. No additional acute fractures or compression deformities are present. Normal kyphosis of the thoracic spine. There is no substantial scoliosis. There is multilevel endplate spondylosis of the thoracic vertebrae. Normal disc space heights. The soft tissue structures are unremarkable. RAD/Thoracic Spine 2 Views IMPRESSION: 1. There is a mild acute compression fracture T9 vertebral body with 20% loss of height and slight cortical offset/displacement. No additional acute fractures or compression deformities are present. Electronically Signed: John Madison MD at 8:36 EST ,
[2023-05-15 07:41] LABS: Anion Gap 4 (5-15); BUN 18 mg/dL (7-18); BUN/Creat Ratio 22.1 RATIO (10-20); Calcium,Total 9.3 mg/dL (8.5-10.1); Chloride 109 mmol/L (98-107); Creatinine, Serum 0.81 mg/dL (0.55-1.02); EST Glomerular Filtration Rate 74 mL/min (>60); Est Glom Filt Rate - Afr Amer 90 mL/min (>60); Estimated Creatinine Clearance 68.34 ml/min; Glucose 129 mg/dL (74-106); Sodium Level 140 mmol/L (136-145); Troponin-I HS (w/2H Reflex) 6 pg/mL (3.0-54.0)
[2023-05-15 08:00] VITALS: BP 141/81; PULSE 103; RESP 26; O2SAT 102
[2023-05-15 08:04] LABS: D-Dimer Quantitative (DVT/PE) 10.65 FEU/ug/m (0.27-0.49)
--- NOTE | 2023-05-15 08:05 | CT_ITS ---
STUDY: CTA CHEST REASON FOR EXAM: Female, 67 years old. syncope, elevated d-dimer RADIATION DOSAGE (If Supplied By Facility): CTDIvol = ( 4.52 ) mGy, DLP = ( 155.08 ) mGycm TECHNIQUE: The examination was performed with the intravenous administration of IV 100mL Isovue-370. Post-processing of the angiographic images was performed, with multiplanar reformation and 3D reconstruction. Individualized dose optimization techniques were used for this CT. COMPARISON: Chest x-ray dated May 15, 2023. X-ray of the thoracic spine dated May 15, 2023 FINDINGS: No visualized consolidation or pulmonary edema or pleural effusion or pneumothorax. No nodules are present. No masses are seen. No visualized sternal fractures or mediastinal hematoma. An acute compression fracture of the T9 vertebral body with mild cortical offset and with approximately 20% loss of height is present. No additional acute vertebral body or posterior element fractures are seen. No visualized large displaced rib fractures. Normal enhancement of the main pulmonary artery and right and left pulmonary arteries. Normal enhancement of the bilateral peripheral pulmonary arteries. There is no demonstrated pulmonary embolism. Normal thoracic aorta and visualized great vessels. There is no demonstrated aortic dissection. Normal heart and pericardium. There are no demonstrated calcifications of the coronary arteries. Normal mediastinum. Normal hilar regions. Normal visualized trachea and bronchi. The lungs are well expanded. Normal pulmonary parenchyma. Normal pleura. Normal chest wall structures. Unremarkable remaining osseous structures. Normal visualized upper abdomen. CT/CTA Chest W/WO Contrast IMPRESSION: 1. An acute compression fracture of the T9 vertebral body with mild cortical offset and with approximately 20% loss of height is present. No additional acute vertebral body or posterior element fractures are seen. 2. Negative CTA chest examination, without a demonstrated pulmonary embolism or arterial dissection. Electronically Signed: John Madison MD at 9:11 EST ,
--- NOTE | 2023-05-15 08:06 | ED.RN ---
LAB CALLED CRITICAL D-DIMER OF 10.65. DR NEFF AWARE
[2023-05-15 09:10] VITALS: BP 137/73; PULSE 82; RESP 14; O2SAT 96
[2023-05-15 09:21] LABS: Reflex Troponin-HS? (from REC) Y
[2023-05-15] MEDS: Ibuprofen 600 MG Tablet PO (09:32)
[2023-05-15 10:08] LABS: Troponin-I HS 7 pg/mL (3.0-54.0)
[2023-05-15 11:35] VITALS: BP 131/61; PULSE 80; RESP 16; O2SAT 98
== END 2023-05-15 11:36 | disposition home or self-care (01) ==
PROVIDERS: Emergency Provider Emergency Medicine; PCP Family Medicine; Referring Provider Emergency Medicine; Visit Provider Emergency Medicine
DX: S22.079A Unspecified fracture of T9-T10 vertebra, initial encounter for closed fracture (principal); R55 Syncope and collapse; S40.011A Contusion of right shoulder, initial encounter; W10.9XXA Fall (on) (from) unspecified stairs and steps, initial encounter; S20.229A Contusion of unspecified back wall of thorax, initial encounter; D64.9 Anemia, unspecified; E86.0 Dehydration; R00.1 Bradycardia, unspecified; Z79.899 Other long term (current) drug therapy
CPT/HCPCS: 70450; 71045; 71275; 72070; 72100; 80048; 84484; 85025; 85379; 93005; 96360; 96361; 99284; J7030; Q9967; A4216

== ENCOUNTER → 2023-05-22 | Outpatient (CLI) | payer MEDICARE, OTHER, SELFPAY ==
--- NOTE | 2023-05-22 07:12 | US_ITS ---
INDICATION: anorexia, abd. Pain EXAMINATION: Ultrasound US Abdomen Limited (quadrant) TECHNIQUE: Hill scale and color doppler imaging was performed of the right upper quadrant. COMPARISON: No relevant prior comparison study available FINDINGS: LIVER: The liver is normal in size and echogenicity measuring about 15.4 cm in length. The portal vein is patent with normal hepatopedal flow. No focal hepatic lesion. There is no free fluid. GALLBLADDER AND BILIARY TREE: No shadowing gallstone, pericholecystic fluid or gallbladder wall thickening is demonstrated in the gallbladder wall measures 1 mm AP. The proximal common bile duct measures 4 mm, which is within normal limits for the patient''s age. Sonographic Díaz''s sign: Negative. PANCREAS: No focal abnormality is demonstrated in the visualized portions of the pancreas. No pancreatic ductal dilatation. RIGHT KIDNEY: The right kidney measures 10.1 cm in length. The renal cortex measures 1.3 cm. There is a 1.4 cm cyst in the right kidney. US/Abdomen Limited IMPRESSION: 1. No acute sonographic abnormality is demonstrated in the right upper quadrant. 2. Small right renal cyst. Electronically Signed: Darin Kebede MD at 12:39 EST ,
== END | disposition home or self-care (01) ==
LOC: US 07:12
PROVIDERS: PCP Family Medicine; Referring Provider Family Medicine; Visit Provider Family Medicine
DX: R11.0 Nausea (principal); R10.9 Unspecified abdominal pain; R63.0 Anorexia
CPT/HCPCS: 76705

== ENCOUNTER → 2023-06-19 | Outpatient (CLI) | payer MEDICARE, OTHER, SELFPAY ==
--- NOTE | 2023-06-19 09:46 | NM_ITS ---
CLINICAL: 67-year-old female with history of abdominal pain and nausea. RADIONUCLIDE HEPATOBILIARY SCINTIGRAPHY COMPARISON: Abdominal ultrasound report 05/22/2023 FINDINGS: Following the intravenous administration of 6.0 mCi of 99m Tc Mebrofenin, hepatobiliary images reveal: 1. Relatively prompt and homogeneous radiopharmaceutical concentration is noted by a normal sized liver. No parenchymal defects are identified. 2. Gallbladder activity is identified at 15 minutes post radiopharmaceutical administration. 3. Small intestinal tract is observed at 30 minutes following tracer injection. 4. Washout of the radiopharmaceutical by the hepatic parenchyma appears qualitatively normal. Cholecystokinin (0.02 ug/kg) was administered intravenously over a 30-minute period. The post CCK gallbladder ejection fraction calculated at 20 minutes following Cholecystokinin administration was noted to be 23.0 % (normal greater than 35%). There is scintigraphic evidence of post cholecystokinin duodenal-gastric reflux. CA/Hepatobilliary Img w/Pharm Int IMPRESSION: 1. ABNORMAL 99m Tc Mebrofenin hepatobiliary imaging examination with Cholecystokinin. A. A gallbladder ejection fraction calculated to be less than 35% following the administration of Cholecystokinin is consistent with the presence of functional hepatobiliary disease (gallbladder and/or sphincter of Oddi dyskinesia) and/or organic hepatobiliary disease (chronic acalculous cholecystitis and/or cystic duct syndrome) in patients with intermediate to high pretest probabilities of hepatobiliary illness. (Alice Pedersen et al, Journal of Nuclear Medicine 32:1695, 1990). B. There is scintigraphic evidence of post CCK duodenal-gastric reflux. (Bienvenido et al, Nucl Med Angelina Lucie Press pg. 35, 1980). Electronically Signed: Nicholas Moreno DO at 8:46 EST ,
== END | disposition home or self-care (01) ==
LOC: NM 09:45
PROVIDERS: PCP Family Medicine; Referring Provider Family Medicine; Visit Provider Family Medicine
DX: R10.9 Unspecified abdominal pain (principal)
CPT/HCPCS: 78227; A9537; J2805

== ENCOUNTER → 2023-08-24 | Outpatient (CLI) | payer MEDICARE, OTHER, SELFPAY ==
[2023-08-24 12:59] LABS: ALB/GLOB Ratio 1.1 RATIO (0.9-2.4); AST(SGOT) 19 U/L (15-37); Alanine Aminotransfer ALT/SGPT 16 U/L (13-56); Albumin, Serum 3.6 g/dL (3.2-5.0); Alkaline Phosphatase 110 U/L (45-117); Anion Gap 4 (5-15); BUN 12 mg/dL (7-18); BUN/Creat Ratio 15.8 RATIO (10-20); Calcium,Total 9.6 mg/dL (8.5-10.1); Chloride 109 mmol/L (98-107); Creatinine, Serum 0.76 mg/dL (0.55-1.02); EST Glomerular Filtration Rate 80 mL/min (>60); Est Glom Filt Rate - Afr Amer 97 mL/min (>60); Globulin 3.4 g/dL (2.2-4.2); Glucose 101 mg/dL (74-106); Potassium 4.1 mmol/L (3.5-5.1); Sodium Level 141 mmol/L (136-145)
[2023-08-24 13:01] LABS: Vitamin D,25 Hydroxy 42.8 ng/mL
== END | disposition home or self-care (01) ==
PROVIDERS: PCP Family Medicine; Referring Provider Family Medicine; Visit Provider Family Medicine
DX: S22.070A Wedge compression fracture of T9-T10 vertebra, initial encounter for closed fracture (principal); X58.XXXA Exposure to other specified factors, initial encounter; M81.0 Age-related osteoporosis without current pathological fracture
CPT/HCPCS: 36415; 80053; 82306

== ENCOUNTER 2023-09-20 08:18 | Day surgery (SDC) | payer MEDICARE, OTHER, SELFPAY ==
[2023-09-20 08:39] VITALS: BP 132/88; PULSE 87; RESP 16; TEMP 36.4; O2SAT 98; BMI 23.6
[2023-09-20] MEDS: Lactated Ringers 1,000 ML 15 ML IV (08:50)
--- NOTE | 2023-09-20 09:30 | EGD_PTH ---
PATIENT: LEANDRA GUZMAN [place] [facility] [place][id number] AGE/SX: 68/F ROOM: RE09/20/[address]: Dr. Guido Sharma MD : 1955 BED: DIS: 09/20/2023 SPEC #: [id number] RECD: 09/20/23 13:03 STATUS: HEATHER LEONARD #: [id number] SAL: 09/20/23 09:[address]: Guido Sharma DEPT: SURGICAL PATHOLOGY RECD BY: Mariana Lopes ENTERED: 09/20/23 13:30 SP TYPE: EGD BIOPSY OTHR DR: Shayne Diaz MD Tissues: A - Gastric mucous membrane B - Gastric fundus C - Esophagus, NOS D - Gastric mucous membrane E - Ascending colon F - Ascending colon G - Cecum, NOS H - Ascending colon I - Sigmoid colon biopsy J - Transverse colon Procedures: Surgery Specimen Level IV HEADER OPERATION: Colonoscopy, EGD with biopsy, Polypectomy PRE-OP DIAGNOSIS: Right upper quadrant abdominal pain, Abnormal biliary HIDA scan, Acid reflux, Bloating symptom, Screening for colon cancer TISSUE SUBMITTED: A- Antrum biopsy, B- Fundic polyp biopsy, C- Gastroesophageal junction biopsy, D-Cardia polyp biopsy, E- Ascending colon polyp #1, F-Ascending colon polyp #2, G- Cecal polyp, H- Ascending colon polyp #3, I- Sigmoid colon polyp, J- Proximal transverse polyp MICROSCOPIC DIAGNOSIS A. Antrum, biopsy: Mild gastritis. See microscopic description and comment. B. Fundic polyp, biopsy: Mild gastritis. See microscopic description. C. Gastroesophageal junction, biopsy: Fragments of gastroesophageal mucosa with chronic inflammation. Intestinal metaplasia (goblet cell metaplasia) not identified. See comment. D. Cardia polyp, biopsy: Fundic gland polyp. E. Ascending colon polyp #1, polypectomy: Fragments of tubular adenoma. F. Ascending colon polyp #2, polypectomy: Fragments of tubular adenoma with focal high-grade dysplasia. G. Cecal polyp, polypectomy: Tubular adenoma. H. Ascending colon polyp #3, polypectomy: Tubular adenoma. I. Sigmoid colon polyp, polypectomy: Fragments of tubular adenoma. J. Proximal transverse polyp, polypectomy: Tubular adenoma with focal high-grade dysplasia. SJ/mr 09/21/23 COMMENT A. The results of immunohistochemistry for Helicobacter pylori will be reported separately ([id number]). C. Alcian blue/PAS stain with matched control is used in the evaluation of the specimen. Case has been reviewed in consultation with Dr. Gray who concurs with the above diagnosis. IDC:AM MICROSCOPIC DESCRIPTION Slides are reviewed. A. The specimen shows fragments of gastric mucosa with chronic inflammatory cell infiltrates in the lamina propria consisting of lymphocytes and plasma cells, consistent with mild chronic gastritis. B. The specimen shows fragments of gastric mucosa with chronic inflammatory cell infiltrates in the lamina propria consisting of lymphocytes and plasma cells, consistent with mild chronic gastritis. No obvious changes consistent with hyperplastic or fundic polyp are noted. GROSS DESCRIPTION A. Received in fixative is one container labeled with the patient's name and designated Antrum biopsy. The specimen consists of two irregular fragments of light shah soft tissue that in aggregate measure 0.6 x 0.3 x 0.1 cm. The specimen is totally submitted in one cassette. B. Received in fixative is one container labeled with the patient's name and designated Fundic polyp biopsy. The specimen consists of one irregular fragment of light shah soft tissue that measures 0.5 x 0.3 x 0.1 cm. The specimen is totally submitted in one cassette. C. Received in fixative is one container labeled with the patient's name and designated GE junction biopsy. The specimen consists of two irregular fragments of light shah soft tissue that in aggregate measure 0.5 x 0.3 x 0.1 cm. The specimen is totally submitted in one cassette. D. Received in fixative is one container labeled with the patient's name and designated Cardia polyp biopsy. The specimen consists of one irregular fragment of light shah soft tissue that measures 0.3 x 0.3 x 0.1 cm. The specimen is totally submitted in one cassette. E. Received in fixative is one container labeled with the patient's name and designated Ascending colon polyp. The specimen consists of multiple irregular fragments of light shah soft tissue that in aggregate measure 1.0 x 0.4 x 0.1 cm. The specimen is totally submitted in one cassette. F. Received in fixative is one container labeled with the patient's name and designated Ascending polyp (2). The specimen consists of two irregular fragments of light shah soft tissue that in aggregate measure 0.6 x 0.3 x 0.1 cm. The specimen is totally submitted in one cassette. G. Received in fixative is one container labeled with the patient's name and designated Cecal polyp biopsy. The specimen consists of one irregular fragment of light shah soft tissue that measures 0.3 x 0.3 x 0.1 cm. The specimen is totally submitted in one cassette. H. Received in fixative is one container labeled with the patient's name and designated Ascending polyp (3). The specimen consists of a shah-pink polyp measuring 0.7 x 0.7 x 0.3cm. The specimen is totally submitted in one cassette. I. Received in fixative is one container labeled with the patient's name and designated Sigmoid colon polyp. The specimen consists of multiple irregular fragments of light shah soft tissue that in aggregate measure 1.5 x 0.4 x 0.1 cm. The specimen is totally submitted in one cassette. J. Received in fixative is one container labeled with the patient's name and designated Proximal transverse polyp. The specimen consists of a shah-pink polyp measuring 1.0 x 0.5 x 0.5cm. The specimen is bisected and submitted entirely in one cassette. BECKY/ 09/20/23 TC:1 [place]: [id number]
--- NOTE | 2023-09-20 09:30 | IMM_PTH ---
PATIENT: LEANDRA GUZMAN LOC: [facility] [place] U#:[id number] AGE/SX: 68/F ROOM: RE09/20/[address]: Dr. Guido Sharma MD : 1955 BED: DIS: 09/20/2023 SPEC #: [id number] RECD: 09/20/23 14:16 STATUS: HEATHER RESummer #: [id number] SAL: 09/20/23 09:[address]: Guido Sharma DEPT: IMMUNOHISTOCHEMISTRY RECD BY: Avtar Sherman ENTERED: 09/20/23 14:16 SP TYPE: IMMUNO OTHR DR: Shayne Diaz MD Tissues: A - Stomach, NOS Procedures: H Pylori (initial) PHYSICIAN & INSTITUTION [place] [id number] SPECIMEN INFORMATION: Tissue Source: A- Antrum Clinical Info: Right upper quadrant abdominal pain, Abnormal biliary HIDA scan, Acid reflux, Bloating symptom, Screening for colon cancer Specimen Number: [id number] CPT code: 60018 METHODOLOGY: Deparaffinized sections of prefer/formalin-fixed tissue or PAP/DQ stained slides are incubated with monoclonal/polyclonal antibodies/oligonucleotide probes. Localization is made via biotin free immunoperoxidase method. Appropriate controls are performed and reacted as expected. Results on target cell population are indicated in the following table: RESULTS: ANTIBODY / CLONE RESULT Block A H Pylori (polyclonal) negative These tests were developed and their performance characteristics determined by [facility]. They may not have been cleared or approved by the U.S. Food and Drug Administration. The FDA has determined that such clearance or approval is not necessary. The above immunohistochemical/dualISH markers are ordered and reviewed by the Pathologist. INTERPRETATION: A. Antrum, biopsy: Negative for Helicobacter pylori organisms. BECKY/ 09/21/23
--- NOTE | 2023-09-20 09:47 | HP.PCM_ITS ---
History and Physical Date of Admission: 09/20/23 Date of Service: 08/03/23 MR#: [id number] Acct: [id number] Name: LEANDRA OCAMPO Rep #: [id number] : 1955 Provider: Dr. Guido Sharma MD Age/Sex: 68/F Location: [facility] [place] Status: Signed Intake Vital Signs 07/13/2408:15 Height 5 ft Weight: 126 lb 4 oz BMI 24.6 BP 134/84 H Blood Pressure Location Rt brachial Position Sitting Respiration 17 Pulse 78 Pulse Source Monitor Temp 97.6 F L Temp Source Temporal Pulse Oximetry (%) 100 Oxygen Delivery Method room air Intake Visit Reasons: 3WK F/U 2/2 Abnormal Hida Scan Results Chief Complaint: abnormal Hida Scan Results 3 wk f/u Is patient in pain?: No Allergies minocycline Allergy (Verified 08/03/23 12:56) Otherazithromycin [From Zithromax Z-Victor M] Adverse Reaction (Mild, Verified 08/03/23 12:56) Upset Stomach Medications acetaminophen 500 mg oral powder packet (Tylenol Extra Strength) 500 mg PO Q4H PRN 07/13/23 [History Confirmed 08/03/23] clindamycin phosphate 1 % topical solution 1 applic topical DAILY 07/13/23 [History Confirmed 08/03/23] metronidazole 0.75 % topical cream 1 applic topical BID 07/13/23 [History Confirmed 08/03/23] sodium sulfacetamine8% sulfur4% topical 07/13/23 [History Confirmed 08/03/23] amoxicillin 500 mg capsule 500 mg PO DAILY 08/03/23 [History Confirmed 08/03/23] PFSH Surgical History H/O dilation and curettage H/O removal of cyst H/O tubal ligation Family History (Updated 07/13/23 @ 09:15 by Tash Thao LPN) Daughter AsthmaMother Arthritis Osteoporosis Skin cancer CVA (cerebral vascular accident)Father Bladder cancer Kidney diseaseSon Diabetes Social History (Updated 07/13/23 @ 09:15 by Tash Thao LPN) Smoking Status: Never smoker alcohol intake: never substance use type: does not use HPI HPI HPI: Patient is a 68-year-old female who presents for recent abnormal HIDA imaging. This is her second consultation visit. They are referred for surgical consultation from Dr. Coffman. Patient presents today again with her and daughter. Mrs. Ocampo states that she was able to be relieved of her TLSO brace and of last week. She shared her therapy starts next week. She has completed a very detailed food diary, but states that she has not been able to necessarily discern any themes or trends and has asked her daughter to read this to distill the content. Her daughter shares that the only thing she was necessarily able to glean is that the twitching sensation that her mother experiences seems to occur in the evenings. Her mother shares that this is if there is a threaded needle in her rib cage of the right side. Yet they also report that she has become rather unrestricted with her diet and has included things such as pineapple chicken pizza and hdz fried walleye (multiple meals a piece) without any subsequent abdominal pain or nausea. Her daughter notes that her mother has complained of some burping or extra gas. Mrs. Ocampo confirms that there is been some heartburn/reflux that required Tums but she estimates this to be no more than 3-4 times since her last visit. Below is recapitulated from patient's prior visit for ease of review: There is a long story about a ground-level fall on May 15 that resulted in a number of T-spine fractures and placed patient in a TLSO brace for the interim. She suggests that her right upper quadrant discomfort began alongside of her fall?related pains. She shares that the pain is primarily on the side. The pain seems to course from her breastbone to the right. In addition to this pain she noted some associated loss of taste foods but despite repeated testing she has never been positive for COVID. She suggest that the frequency is actually decreased with which she experiences this pain. She notes that previously she experienced on daily basis but now estimates it occurs maybe 3-4 times per week. She shares that she is extremely conscientious for what she is eating and is intentionally avoiding any fatty or spicy foods to avoid aggravating her gallbladder. She denies any associated nausea. Her current diet is rather limited but consists of many weeks for breakfast, a boiled beef bernard with baked Mongolian fries for lunch and chicken with baked potatoes and butter/olive oil for dinner. With taking this diet she is uncertain whether or not it is triggered any exacerbation of her pain. She underwent ultrasound imaging of the gallbladder on 05/22/2023 which was unremarkable and failed to show even gallstones. HIDA imaging was then performed on 06/19/2023 and was read as abnormal due to a calculated ejection fraction post CCK administration of 23%. ROS General General: Yes weight change (loss- ten pounds ) Endo Additional Details: thyroid nodules Skin Skin: Yes changing moles Musc Musculoskeletal: Yes back problems Additional Details: T6/T9 fracture Cardio Cardiovascular: Yes murmur Psych Psychiatric: Yes depression and anxiety Gastro Gastrointestinal: Yes hemorrhoids and Yes gallbladder problem Exam Const General: cooperative and anxious Orientation: alert, awake and oriented x3 Resp Effort & Inspection: normal respiratory effort GI Other: Nondistended, soft, nontender to palpation x 4 quadrants. Negative Díaz sign. Assessment and Plan Assessment and Plan (1) Right upper quadrant abdominal pain: Status: Acute Comment: Patient is a 68-year-old female presents with 2-month history of right upper quadrant abdominal discomfort. She does note that this discomfort seems primarily located on the lateral aspect of her thoracoabdominal region. It is not clearly associated with food nor are there time of day or position associations that she has been able to determine. With this nonspecific abdominal discomfort she has undergone workup for possible gallbladder relation and had a normal right upper quadrant ultrasound but HIDA was read as abnormal due to a low ejection fraction. Based on the nonspecific description it is difficult for me to truly elicit whether or not her pain is related to the gallbladder. I have suggested that she begin to keep a food diary and a pain diary to determine if there is any correlation between the 2. I would then like to follow-up with her in 2 to 3 weeks to assess her findings. In the interim I suggested the differential also would include some form of peptic ulcer disease or other upper GI?related pathology. We discussed the possibility of proceeding with a EGD exam if she is not fully inclined toward surgery or there is some doubt as to the pains connection to the gallbladder. Update: Patient all but denies recurrence of her abdominal pain despite on restricting her diet. Therefore, I find this to be unlikely related to gallbladder disease. She is reporting some reflux and bloating symptoms. Thus, I have recommended consideration of a EGD with biopsy for possible H. pylori. Patient is reluctant but receptive. Plan: EGD with biopsy (2) Abnormal biliary HIDA scan: Status: Acute Comment: Patient with ejection fraction of 23% post CCK administration. I have been careful to thoroughly outlined the significance of these findings and share with her that this does qualify as biliary dyskinesia, however, I also shared with her that this is not a diagnosis that should be regarded alongside of cholecystitis?in the sense that her in action could lead her to severe illness. This was done as a way of reassurance. Patient is very reluctant to undergo medical procedures of any kind. Many questions were answered from both her and her family. We have resolved to conduct a follow-up visit after a thorough recording of her dietary habits and any additional details she can provide about her pain complaints. (See above) Update: As above, patient's history and exam are unconvincing for gallbladder etiology. Therefore, I am not inclined to pursue cholecystectomy at this time but have provided patient with red flag warning symptoms of gallbladder inflammation. She asked what the likelihood of is for progression of her gallbladder dysfunction and I answered her frankly that it would be nearly impossible to prognosticate based on the sheer number of variables (3) Acid reflux: Status: Acute Comment: Patient remarks of numerous reflux symptoms in the 3 weeks since our last visit. She also complains of some associated fullness. She has never undergone prior endoscopy and does report some symptomatic improvement with Tums. Therefore I have recommended consideration of EGD with biopsy for H. pylori. Plan: Diagnostic EGD (4) Bloating symptom: Status: Acute Comment: This is an associated symptom patient's reflux and upper abdominal discomfort. Recommending EGD with biopsy for rule out H. pylori (5) Screening for colon cancer: Status: Acute Comment: Patient generally describes normal bowel habits but is never undergone colon cancer screening with colonoscopy. Thus, given her indications for diagnostic EGD as outlined above I am recommending we proceed for a screening colonoscopy at the same time. Patient is reluctant but prompted by both her and her daughter to proceed as recommended. I discussed a 2-day bowel prep and the general procedure. Plan: Plan will be to complete colonoscopy on first mutually agreeable date under local MAC. Pre-procedure prep discussed and paper instructions provided. Patient is also made aware that she will need to have a stud driver with her the day of the procedure. I have examined the patient and the H&P has been reviewed. There are no clinical changes since date of exam. Patient reports that she has had minimal right upper quadrant discomfort with an unrestricted diet. She does share that she had some difficulty with her bowel prep and GI upset with nausea but after calling the physician?on-call line her symptoms spontaneously abated and she did not require the recommended Zofran. She does confirm that her output is now clear so we will plan to proceed to the endoscopy suite for upper and lower endoscopy as discussed in greater detail above.
[2023-09-20 10:58] VITALS: BP 132/88; BP 90/71; PULSE 69; RESP 16; TEMP 36.3; O2SAT 94
--- NOTE | 2023-09-20 11:02 | OP.EGD_ITS ---
Patient Name: Yuki Ocampo Procedure Date: 09/20/2023 9:27 AM Date of : 1955 Age: 68 Procedure: Upper GI endoscopy Indications: Epigastric abdominal pain, Abdominal pain in the right upper quadrant, Suspected esophageal reflux Providers: Guido Sharma MD Referring MD: Shayne Diaz Md Medicines: See the Anesthesia note for documentation of the administered medications Patient Profile: Refer to note in patient chart for documentation of history and physical. Complications: No immediate complications. Estimated blood loss: Minimal. Procedure: Pre-Anesthesia Assessment: - The heart rate, respiratory rate, oxygen saturations, blood pressure, adequacy of pulmonary ventilation, and response to care were monitored throughout the procedure. After obtaining informed consent, the endoscope was passed under direct vision. Throughout the procedure, the patient's blood pressure, pulse, and oxygen saturations were monitored continuously. The Endoscope was introduced through the mouth, and advanced to the second part of duodenum. The upper GI endoscopy was accomplished without difficulty. The patient tolerated the procedure well. Scope In: 9:53:50 AM Scope Out: 10:10:31 AM Total Procedure Duration Time 0 hours 16 minutes 41 seconds Findings: No gross lesions were noted in the duodenal bulb, in the first portion of the duodenum and in the second portion of the duodenum. No biopsies or other specimens were collected for this exam. Localized mildly erythematous mucosa without bleeding was found in the gastric antrum. Biopsies were taken with a cold forceps for histology. Estimated blood loss was minimal. A few 3 mm semi-sessile polyps with no bleeding and no stigmata of recent bleeding were found in the gastric fundus. Biopsies were taken with a cold forceps for histology. Estimated blood loss was minimal. A large hiatal hernia was present. No biopsies or other specimens were collected for this exam. Localized moderate mucosal changes characterized by inflammation were found at the gastroesophageal junction. Biopsies were taken with a cold forceps for histology. Estimated blood loss was minimal. The Z-line was irregular and was found 35 cm from the incisors. No biopsies or other specimens were collected for this exam. Grade II varices were found in the mid esophagus. They were 5 mm in largest diameter. No biopsies or other specimens were collected for this exam. A single 3 mm semi-sessile polyp with no bleeding and no stigmata of recent bleeding was found in the cardia. Biopsies were taken with a cold forceps for histology. Estimated blood loss was minimal. The exam was otherwise without abnormality. Impression: - No gross lesions in the duodenal bulb, in the first portion of the duodenum and in the second portion of the duodenum. No specimens collected. - Erythematous mucosa in the antrum. Biopsied. - A few gastric polyps. Biopsied. - Large hiatal hernia. No specimens collected. - Inflamed mucosa in the esophagus. Biopsied. - Z-line irregular, 35 cm from the incisors. No specimens collected. - Grade II esophageal varices. No specimens collected. - A single gastric polyp. Biopsied. - The examination was otherwise normal. Recommendation: - Discharge patient to home (via wheelchair). - Resume previous diet today. - No aspirin, ibuprofen, naproxen, or other non-steroidal anti-inflammatory drugs for 2 days after biopsy. - Await pathology results. - Telephone my office for pathology results in 1 week. Procedure Code(s): --- Professional --- 53410, Esophagogastroduodenoscopy, flexible, transoral; with biopsy, single or multiple Diagnosis Code(s): --- Professional --- K31.89, Other diseases of stomach and duodenum K20.90, Esophagitis, unspecified without bleeding K31.7, Polyp of stomach and duodenum K44.9, Diaphragmatic hernia without obstruction or gangrene K22.89, Other specified disease of esophagus I85.00, Esophageal varices without bleeding R10.13, Epigastric pain R10.11, Right upper quadrant pain CPT copyright 2021 [employer]. All rights reserved. The codes documented in this report are preliminary and upon inspector packager review may be revised to meet current compliance requirements. Guido Sharma MD 09/20/2023 11:02:14 AM This report has been signed electronically. Number of Addenda: 0 Note Initiated On: 09/20/2023 9:27 AM
--- NOTE | 2023-09-20 11:03 | OP.CCLET_ITS ---
09/20/2023 Shayne Diaz Md Re : Upper GI endoscopy procedure for Yuki Ocampo Dear Joe This procedure was performed on September. My impressions and recommendations are as follows: Impressions : - No gross lesions in the duodenal bulb, in the first portion of the duodenum and in the second portion of the duodenum. No specimens collected. - Erythematous mucosa in the antrum. Biopsied. - A few gastric polyps. Biopsied. - Large hiatal hernia. No specimens collected. - Inflamed mucosa in the esophagus. Biopsied. - Z-line irregular, 35 cm from the incisors. No specimens collected. - Grade II esophageal varices. No specimens collected. - A single gastric polyp. Biopsied. - The examination was otherwise normal. Recommendations : - Discharge patient to home (via wheelchair). - Resume previous diet today. - No aspirin, ibuprofen, naproxen, or other non-steroidal anti-inflammatory drugs for 2 days after biopsy. - Await pathology results. - Telephone my office for pathology results in 1 week. My findings are described in the full procedure note, which is enclosed. If I can be of further assistance, please feel free to contact me at Doctor phone number(s): , Work: . Sincerely, Guido Sharma MD 09/20/2023 11:02:14 AM This report has been signed electronically.
[2023-09-20 11:04] VITALS: BP 104/72; BP 132/88; PULSE 72; RESP 16; O2SAT 98
[2023-09-20 11:10] VITALS: BP 107/71; BP 132/88; PULSE 79; RESP 16; O2SAT 100
--- NOTE | 2023-09-20 11:13 | OP.CCLET_ITS ---
09/20/2023 Shayne Diaz Md Re : Colonoscopy procedure for Yuki Alamor Joe This procedure was performed on September. My impressions and recommendations are as follows: Impressions : - Three 4 to 5 mm polyps in the proximal ascending colon, in the mid ascending colon and in the cecum, removed with a hot snare. Resected and retrieved. - Likely benign polypoid lesion in the mid ascending colon. Biopsied. Tattooed. - One 10 mm, non-bleeding polyp in the proximal transverse colon, removed with a hot snare. Resected and retrieved. - One 7 mm polyp in the sigmoid colon, removed with a hot snare. Resected and retrieved. Recommendations : - Resume previous diet today. - Continue present medications. - Await pathology results. - Repeat colonoscopy date to be determined after pending pathology results are reviewed for surveillance based on pathology results. - Telephone my office for pathology results in 1 week. My findings are described in the full procedure note, which is enclosed. If I can be of further assistance, please feel free to contact me at Doctor phone number(s): , Work: . Sincerely, Guido Sharma MD 09/20/2023 11:13:27 AM This report has been signed electronically.
--- NOTE | 2023-09-20 11:13 | OP.COLON_ITS ---
Patient Name: Yuki Ocampo Procedure Date: 09/20/2023 10:13 AM Date of : 1955 Age: 68 Procedure: Colonoscopy Indications: Screening for colorectal malignant neoplasm Providers: Guido Sharma MD Referring MD: Shayne Diaz Md Medicines: See the Anesthesia note for documentation of the administered medications Patient Profile: Refer to note in patient chart for documentation of history and physical. Last Colonoscopy: none. The patient's first colonoscopy is today. Complications: No immediate complications. Estimated blood loss: Minimal. Procedure: Pre-Anesthesia Assessment: - The heart rate, respiratory rate, oxygen saturations, blood pressure, adequacy of pulmonary ventilation, and response to care were monitored throughout the procedure. - The heart rate, respiratory rate, oxygen saturations, blood pressure, adequacy of pulmonary ventilation, and response to care were monitored throughout the procedure. After I obtained informed consent, the scope was passed under direct vision. Throughout the procedure, the patient's blood pressure, pulse, and oxygen saturations were monitored continuously. The Colonoscope was introduced through the anus and advanced to the cecum, identified by appendiceal orifice and ileocecal valve. The colonoscopy was performed without difficulty. The patient tolerated the procedure well. The quality of the bowel preparation was adequate to identify polyps. Scope In: 10:13:50 AM Scope Withdrawal Time 0 hours 23 minutes 44 seconds Scope Out: 10:50:37 AM Total Procedure Duration Time 0 hours 36 minutes 47 seconds Findings: The perianal and digital rectal examinations were normal. Three semi-pedunculated polyps were found in the proximal ascending colon, mid ascending colon and cecum. The polyps were 4 to 5 mm in size. These polyps were removed with a hot snare. Resection and retrieval were complete. Estimated blood loss was minimal. A 35 mm polypoid lesion was found in the mid ascending colon. The lesion was semi-sessile. No bleeding was present. Biopsies were taken with a cold forceps for histology. Estimated blood loss was minimal. Area was tattooed with an injection of 4 mL of Zhane ink. A 10 mm, non-bleeding polyp was found in the proximal transverse colon. The polyp was semi-pedunculated. The polyp was removed with a hot snare. Resection and retrieval were complete. Estimated blood loss: none. A 7 mm polyp was found in the sigmoid colon. The polyp was semi-pedunculated. The polyp was removed with a hot snare. Resection and retrieval were complete. Estimated blood loss: none. Impression: - Three 4 to 5 mm polyps in the proximal ascending colon, in the mid ascending colon and in the cecum, removed with a hot snare. Resected and retrieved. - Likely benign polypoid lesion in the mid ascending colon. Biopsied. Tattooed. - One 10 mm, non-bleeding polyp in the proximal transverse colon, removed with a hot snare. Resected and retrieved. - One 7 mm polyp in the sigmoid colon, removed with a hot snare. Resected and retrieved. Recommendation: - Resume previous diet today. - Continue present medications. - Await pathology results. - Repeat colonoscopy date to be determined after pending pathology results are reviewed for surveillance based on pathology results. - Telephone my office for pathology results in 1 week. Procedure Code(s): --- Professional --- 74143, Colonoscopy, flexible; with removal of tumor(s), polyp(s), or other lesion(s) by snare technique 42390, 59, Colonoscopy, flexible; with biopsy, single or multiple 42238, Colonoscopy, flexible; with directed submucosal injection(s), any substance Diagnosis Code(s): --- Professional --- Z12.11, Encounter for screening for malignant neoplasm of colon D12.2, Benign neoplasm of ascending colon D12.0, Benign neoplasm of cecum D49.0, Neoplasm of unspecified behavior of digestive system D12.3, Benign neoplasm of transverse colon (hepatic flexure or splenic flexure) D12.5, Benign neoplasm of sigmoid colon CPT copyright 2021 [employer]. All rights reserved. The codes documented in this report are preliminary and upon exterior door installer review may be revised to meet current compliance requirements. Guido Sharma MD 09/20/2023 11:13:27 AM This report has been signed electronically. Number of Addenda: 0 Note Initiated On: 09/20/2023 10:13 AM
[2023-09-20 11:15] VITALS: BP 114/70; BP 132/88; PULSE 73; RESP 16; TEMP 36.6; O2SAT 99
[2023-09-20 11:32] VITALS: BP 132/88
--- NOTE | 2023-09-20 12:13 | SUR.PHASEII ---
PATIENT DENIES ANY NAUSEA BUT DOES C/O GAS DISCOMFORT IN HER STOMACH. ABDOMEN SOFT AND NON DISTENDED. ENCOURAGED PATIENT TO ATTEMPT TO MOVE AND SIP ON CLEAR LIQUIDS. WILL CONTINUE TO MONITOR.
== END 2023-09-20 12:56 | disposition home or self-care (01) ==
LOC: SDC 08:21 → AC 08:22
PROVIDERS: PCP Family Medicine; Referring Provider Family Medicine; Visit Provider Surgery
PROC: 0DJD8ZZ Inspection of Lower Intestinal Tract, Via Natural or Artificial Opening Endoscopic (ICD-10-PCS; CPT 45378; principal; 2023-09-20 09:25)
DX: Z12.11 Encounter for screening for malignant neoplasm of colon (principal); I85.00 Esophageal varices without bleeding; K44.9 Diaphragmatic hernia without obstruction or gangrene; K21.00 Gastro-esophageal reflux disease with esophagitis, without bleeding; K29.70 Gastritis, unspecified, without bleeding; D12.2 Benign neoplasm of ascending colon; D12.0 Benign neoplasm of cecum; D12.3 Benign neoplasm of transverse colon
CPT/HCPCS: 45385; 45380; 43239; 45381; 88305; 88342; J7120; A4648; J2405

== ENCOUNTER → 2023-11-20 | Outpatient (CLI) | payer MEDICARE, OTHER, SELFPAY ==
--- NOTE | 2023-11-20 08:29 | BD_ITS ---
STUDY: DUAL ENERGY X-RAY ABSORPTIOMETRY / DXA REASON FOR EXAM: Female, 68 years old. S22.070A TECHNIQUE: Bone Mineral Density (BMD) measurements of lumbar spine and bilateral hips were obtained. COMPARISON: Comparison is made with prior study dated November 17, 2021. FINDINGS: Lumbar Spine (L1-L4): g/cm2 (0.812) / T-score (-2.0) / Z-score (0.1) Findings are suggestive of osteopenia with a moderate fracture risk. Left Femur Total: g/cm2 (0.638) / T-score (-2.5) / Z-score (-1.0) Left Femoral Neck: g/cm2 (0.577) / T-score (-2.5) / Z-score (-0.6) Right Femur Total: g/cm2 (0.612) / T-score (-2.7) / Z-score (-1.2) Right Femoral Neck: g/cm2 (0.561) / T-score (-2.6) / Z-score (by 0.8) The T-Scores on the most recent prior examination were: Lumbar Spine (L1-L4): There has been worsening of bone density since the previous examination. Left Femur Total: which represents a worsening of 3.9%. Right Femur Total: which represents a worsening of 5.7%. BD/Dexa Bone Density Study IMPRESSION: The patient is considered osteoporotic as outlined below according to World Jeet Organization (WHO) criteria with a high fracture risk. There has been worsening of bone density since the previous examination. Reference Information: The T-score is the number of standard deviations above or below the standard which is normal for young adults at their peak bone mineral density. The World Health Organization (WHO) interprets the T-scores as follows: Above -1 Normal bone density Between -1 and -2.5 Osteopenia Equal to / or below -2.5 Osteoporosis As a practical clinical guideline, osteopenia may be graded as follows: Mild -1 through -1.5 Moderate -1.6 through -2.0 Severe -2.1 through -2.4 The Z-score is the number of standard deviations above or below age-matched controls. A Z-score of less than -1.5 would be considered abnormal. References: 1. NIH Osteoporosis and Related Bone Diseases www osteo.org 2. International Society for Clinical Densitometry www iscd.org 3. National Osteoporosis Foundation www nof.org Electronically Signed: Rah Kenney MD at 15:33 EDT ,
== END | disposition home or self-care (01) ==
LOC: OPBD 08:23
PROVIDERS: PCP Family Medicine; Referring Provider Family Medicine; Visit Provider Family Medicine
DX: S22.070A Wedge compression fracture of T9-T10 vertebra, initial encounter for closed fracture (principal); X58.XXXA Exposure to other specified factors, initial encounter
CPT/HCPCS: 77080

== ENCOUNTER → 2024-01-16 | Outpatient (CLI) | payer MEDICARE, OTHER, SELFPAY ==
--- NOTE | 2024-01-16 08:11 | BI_ITS ---
MAMMOGRAPHY - BILATERAL SCREENING REASON FOR EXAM: Female, 68 years old. Routine annual screening examination. PERTINENT HISTORY: Non-contributory. TECHNIQUE: Digital bilateral breast lavon (3D mammographic acquisition) in the CC and MLO projections. 2-D mediolateral oblique (MLO) and craniocaudad (CC) views of both breasts were obtained. CAD: Full Field Digital Mammography with Computer Added Detection was performed. COMPARISON: Comparison is made with prior study on the second 2022 and November 17, 2021. FINDINGS: Breast Composition: The breasts are heterogeneously dense, which may obscure small masses. Questionable 8.7 mm x 7.9 mm nodule seen along the medial aspect of the left breast on the craniocaudad view. This may represent glandular tissue. The patient will be recalled for additional views including 90 degree lateral and compression spot views. No other significant abnormalities are identified. BI/SCRN MAMM (CAD)W/LAVON BILAT IMPRESSION: Questionable 8.7 mm x 7.9 mm nodule along the medial aspect of the left breast on the craniocaudad view. The patient will be recalled for additional views including compression spot views and 90 degree lateral. Recall Side: Left Breast ASSESSMENT CATEGORY: BIRADS Category 0: Incomplete. Need additional imaging evaluation. A letter regarding these results will be sent to the patient by the facility within 30 days. Approximately 10% of breast cancers are not detected by mammography. A normal mammogram should not delay biopsy of a clinically suspicious abnormality. [id number] Electronically Signed: Rah Kenney MD at 9:39 EDT ,
== END | disposition home or self-care (01) ==
PROVIDERS: PCP Family Medicine; Referring Provider Family Medicine; Visit Provider Family Medicine
DX: Z12.31 Encounter for screening mammogram for malignant neoplasm of breast (principal)
CPT/HCPCS: 77063; 77067

== ENCOUNTER → 2024-01-18 | Outpatient (CLI) | payer MEDICARE, OTHER, SELFPAY ==
--- NOTE | 2024-01-18 08:56 | US_ITS ---
STUDY: ULTRASOUND BREAST - LEFT REASON FOR EXAM: Female, 68 years old. Abnormal screening mammogram. TECHNIQUE: Axial and longitudinal images of the LEFT breast were performed with a high resolution ultrasound transducer. # OF IMAGES: 12 COMPARISON: Diagnostic mammogram earlier today, screening mammogram 01/16/2024 FINDINGS: LEFT Breast: Heterogeneous plaque on echotexture. At 9:00, 3 cm nipple, ultrasound confirms an 8 mm oval parallel circumscribed anechoic mass with posterior enhancement consistent with a cyst corresponding to the mass seen on mammography.: US/Breast Limited Unilateral IMPRESSION: Ultrasound confirms an 8 mm cyst corresponding to the mass seen on mammography. ASSESSMENT CATEGORY: BIRADS Category 2: Benign. A letter regarding these results will be sent to the patient by the facility within 30 days. Electronically Signed: Nicholas Willis MD at 10:13 EDT ,
--- NOTE | 2024-01-18 08:56 | BI_ITS ---
MAMMOGRAPHY - UNILATERAL DIAGNOSTIC: LEFT BREAST REASON FOR EXAM: Female, 68 years old. NODULE PERTINENT HISTORY: Non-contributory. TECHNIQUE: Digital examination. Mediolateral oblique (MLO) and craniocaudad (CC) views of the breast were obtained. CAD: CAD was not performed on this study. COMPARISON: 01/16/2024 FINDINGS: Breast Composition: The breasts are extremely dense, which lowers the sensitivity of mammography. Focal compression views confirm a subcentimeter oval circumscribed equal density mass in the lower inner quadrant of the left breast at mid depth and ultrasound is recommended for further evaluation. No other significant abnormalities are identified. BI/DIAG MAMM W/CAD, UNILAT IMPRESSION: Further ultrasonographic evaluation recommended, as described above. ASSESSMENT CATEGORY: BIRADS Category 0: Incomplete. Need additional imaging evaluation. A letter regarding these results will be sent to the patient by the facility within 30 days. FOLLOW-UP RECOMMENDATION: Ultrasound recommended. (I) Approximately 10% of breast cancers are not detected by mammography. A normal mammogram should not delay biopsy of a clinically suspicious abnormality. Electronically Signed: Nicholas Willis MD at 9:19 EDT ,
== END | disposition home or self-care (01) ==
LOC: OPBI 08:53
PROVIDERS: PCP Family Medicine; Referring Provider Family Medicine; Visit Provider Family Medicine
DX: N63.20 Unspecified lump in the left breast, unspecified quadrant (principal); R92.8 Other abnormal and inconclusive findings on diagnostic imaging of breast
CPT/HCPCS: 76642; 77065

== ENCOUNTER 2024-01-24 06:53 | Day surgery (SDC) | payer MEDICARE, OTHER, SELFPAY ==
--- NOTE | 2024-01-24 07:08 | PCM.PRE.AN2 ---
ASA Classification* ASA Classification ASA Classification: 2 Assessment & Plan Anesthesia* Anesthesia Assessment Anesthesia Assessment: Discussed sedation and/or anesthesia options, risks, benefits, and alternatives with patient/parents/legal guardian/POA. Questions invited. The patient/parents/legal guardian/POA seems to understand and agrees to proceed with anesthesia plan. Reviewed the physical assessment, medical history, allergy history and patient home medications list prior to surgery/procedure/anesthetic and documented any changes. Performed airway and anesthesia risk assessments. Anesthesia Type Anesthesia Type: MAC (see written pre-anesthesia record for full assessment) Anesthesia Focused Assessment* Airway Assessment Mouth opens: >3 cm Mallampati Score: II Focused Labs Anesthesia Preop lab: CBC WBC 7.4 K/mm3 (4.4-11.0) 05/15/23 07:05 RBC 4.82 M/mm3 (4.2-5.4) 05/15/23 07:05 Hgb 14.4 g/dL (12.0-15.0) 05/15/23 07:05 Hct 42.2 % (37-47) 05/15/23 07:05 Plt Count 259 K/mm3 (150-450) 05/15/23 07:05 CHEMISTRY Potassium 4.1 mmol/L (3.5-5.1) 08/24/23 09:40 Sodium 141 mmol/L (136-145) 08/24/23 09:40 BUN 12 mg/dL (7-18) 08/24/23 09:40 Creatinine 0.76 mg/dL (0.55-1.02) 08/24/23 09:40 Glucose 101 mg/dL (74-106) 08/24/23 09:40 TSH 1.14 uIU/mL (0.358-3.74) 05/07/23 16:09 COAG Pre-Assessment Diagnosis/Proposed Procedure Planned Operative Procedure(s): CSCOPE Anesthesia History Anesthesia History - payroll consultant: Anesthesia History - payroll consultant Hx Hospitalization No 01/21/24 15:50 Any Problems With Anesthesia Yes: N,V 01/21/24 15:50 Cholinesterase deficiency No 01/21/24 15:50 You/Your Family Experience No 01/21/24 15:50 fever (hyperthermia) with Relationship Recent Exposure to Contagious No 09/20/23 08:39 Disease Does patient have nerve No 01/21/24 15:50 stimulator Patient instructed to have device shut off --Does patient have Pacemaker or ICD? When Was Last Pacemaker Check QUESTION #4 FULL TEXT: You/Your Family Experience fever (hyperthermia) with Anesthesia Last Oral Intake Last Oral intake: Last Oral Intake NPO since Meds taken in AM with sips of water? Meds patient instructed to take am of surgery PONV PONV - payroll consultant: PONV - payroll consultant Female Yes 01/21/24 15:50 HX of Motion Sickness No 01/21/24 15:50 HX of N/V After Surgery Yes 01/21/24 15:50 Non-Smoker Yes 01/21/24 15:50 Duration of Surgery greater No 01/21/24 15:50 than 60 minutes Number of Risk Factors 3 01/21/24 15:50 PONV Score Moderate Risk 01/21/24 15:50 Height & Weight Height & Weight: Anesthesia: Height & Weight Height 5 ft 09/20/23 08:39 Respiratory Assessment Respiratory Assessment - payroll consultant: Respiratory Tract Infection Hx - payroll consultant Hx Respiratory Tract Infection No 01/21/24 15:50 STOP Sleep Apnea STOP Sleep Apnea - payroll consultant: STOP Sleep Apnea - payroll consultant Hx Hypertension No 01/21/24 15:50 Hx Sleep Apnea No 01/21/24 15:50 CPAP No 09/20/23 10:58 BIPAP Do you snore loudly (louder No 01/21/24 15:50 than talking or can be heard Do you often feel tired/ No 01/21/24 15:50 fatigued/ sleepy during daytime? Has anyone observed you stop No 01/21/24 15:50 breathing during sleep? STOP Results Negative 01/21/24 15:50 QUESTION #5 FULL TEXT : Do you snore loudly (louder than talking or can be heard through closed doors)? Tobacco Use History Tobacco Use History - payroll consultant: Tobacco Use History - payroll consultant Tobacco Use Smoking Status Never smoker 01/21/24 15:50 Hx Tobacco Use No 01/21/24 15:50 Years Smoking Packs Smoked per Day Smoking Cessation Date was within the last 15 years Hx Smoking Cessation Date Hx Smoking Cessation Counseling Hematologic Medial History Hematologic Hx - payroll consultant: Hematologic Medical Hx - broth setter Hx of Blood Transfusion No 01/21/24 15:50 Hx of Transfusion in last 3 No 01/21/24 15:50 Months Date of Last Transfusion (if within last 3 months) Ever experience any problems No 01/21/24 15:50 with transfusion(s)? Specify any problems Hx of Preganancy in last 3 No 01/21/24 15:50 Months Nurse Filling Out Transfusion DSCHRIBER 01/21/24 15:50 & Questions: Date: 01/21/24 01/21/24 15:50 Time: 15:53 01/21/24 15:50 Patient unable to answer at this time (ie. confused, unrespo /Reproduction History /Reproductive History - payroll consultant: /Reproductive Hx- payroll consultant Hx Now No 01/21/24 15:50 Gestational Age (in weeks): EDC: Hx Hx Para Hx Section SAB No 01/21/24 15:50 PFSH Medical History Breast cyst Osteoporosis Wears glasses Depression Anxiety Post-menopausal Arthritis Injury of head and neck Injury of back Syncope Gastric reflux Non-smoker History of irregular heartbeat Home Medications ?Medication ?Instructions ?Recorded ?Last Taken ?Type metronidazole 0.75 % topical cream 1 applic topical BID 07/13/23 Unknown History cholecalciferol (vitamin D3) 50 50 mcg PO DAILY 01/07/24 Unknown History mcg (2,000 unit) capsule omeprazole 20 mg capsule,delayed 20 mg PO DAILY #30 caps 01/07/24 Unknown Rx release calcium carbonate 600 mg PO DAILY 01/21/24 Unknown History sulfacetamide sodium-sulfur 8 %-4 1 applic topical DAILY 01/21/24 Unknown History % topical suspension Allergy/AdvReac Type Severity Reaction Status Date / Time minocycline Allergy Other Verified 01/21/24 15:47 azithromycin (From Zithromax AdvReac Mild Upset Verified 01/21/24 15:47 Z-Victor M) Stomach Family History Daughter Asthma Mother Arthritis Osteoporosis Skin cancer CVA (cerebral vascular accident) Father Bladder cancer Kidney disease Son Diabetes Surgical History Hx of colonoscopy H/O tubal ligation H/O removal of cyst H/O dilation and curettage Social History Smoking Status: Never smoker alcohol intake: never substance use type: does not use Review of Systems (Anesthesia) ROS Narrative System reviewed and no additional complaints, except as documented.
[2024-01-24 07:18] VITALS: BP 146/76; PULSE 67; RESP 18; TEMP 36.3; O2SAT 100; BMI 24.3
[2024-01-24] MEDS: Lactated Ringers 1,000 ML 15 ML IV (07:27)
--- NOTE | 2024-01-24 08:00 | COLBX_PTH ---
PATIENT: LEANDRA GUZMAN LOC: EN U#:[id number] AGE/SX: 68/F ROOM: RE01/24/[address]: Dr. Mandeep Ryan DO : 1955 BED: DIS: 01/24/2024 SPEC #: [id number] RECD: 01/24/24 09:46 STATUS: HEATHER LEONARD #: [id number] SAL: 01/24/24 08:[address]: Mandeep Ryan DEPT: SURGICAL PATHOLOGY RECD BY: Mariana Lopes ENTERED: 01/24/24 11:28 SP TYPE: COLON BX OTHR DR: Shayne Diaz MD Tissues: A - COLON BIOPSY B - Ascending colon Procedures: Surgery Specimen Level IV HEADER OPERATION: Colonoscopy with polypectomies and clip PRE-OP DIAGNOSIS: Sessile colonic polyp, bloating symptom TISSUE SUBMITTED: A- Hepatic flexure polyp, B- Ascending colon polyp MICROSCOPIC DIAGNOSIS A. Hepatic flexure polyp, polypectomy: Hyperplastic polyp with marked cautery artifacts. B. Ascending colon polyp, polypectomy: Fragments of tubulovillous adenoma. BECKY. 01/25/2024 MICROSCOPIC DESCRIPTION Slides are reviewed. GROSS DESCRIPTION A. Received in fixative is one container labeled with the patient's name and designated Hepatic flexure polyp. The specimen consists of one irregular fragment of light shah soft tissue that measures 0.3 x 0.3 x 0.1 cm. The specimen is totally submitted in one cassette. B. Received in fixative is one container labeled with the patient's name and designated Ascending colon polyp. The specimen consists of a shah-pink polyp measuring 1.0 x 0.6 x 0.6 cm. The presumed base is inked. The polyp is bisected. Also present in the container are multiple fragments of shah-pink soft tissue measuring in aggregate 2.5 x 1.0 x 0.2cm. The entire specimen is submitted in one cassette. BECKY/ 01/24/2024 TC:1 CPT:03513r3
--- NOTE | 2024-01-24 08:15 | PCM.HP.BLA ---
History and Physical Date of Admission: 01/24/24 1 F who presents to the office today for follow up. *[facility] established [id number] pt reports that she had scopes with Dr Sharma in September 2023 and there was a polyp he was unable to remove and wanted pt to follow up with Dr Ryan. Pt continuing with Pantoprazole 40mg daily. ROS Const Constitutional: No fatigue, fever(s) or weight change ENT ENT: No difficulty swallowing Gastro GI: Positive for bloating, heartburn and excessive flatus; No abdominal pain, belching, change in bowel habits, change in stool character, coffee ground emesis, constipation, cramping, diarrhea, difficulty swallowing, feeling full early, incontinent of stools, Vomiting blood/hematemesis, Blood in stool, loose stools, Black,tarry stools, nausea/dyspepsia, pain with swallowing, vomiting or other Musc Musculoskeletal: Positive for joint pain and stiffness Skin Skin: No yellowing of the eye or itchy eyes Psych Psychiatric: Positive for anxiety and No depression Endo Endocrine: No fatigue or weight change Aller/Imm Allergy/Immunologic: No itchy eyes Larry/Lymp Hematologic/Lymphatic: No easy bleeding or easy bruising Exam Const General: cooperative and comfortable Nutritional Appearance: average body habitus and well nourished HENTX Head: normal to inspection Ears: hearing grossly normal bilaterally Nose: external nose normal Face and sinus: normal facial exam Mouth: oral mucosae normal Throat: posterior oropharynx normal Eyes General: appearance normal, both eyes and all related structures Neck Neck: normal visual inspection Chest Chest palpation & inspection: normal inspection of the chest and normal palpation of entire chest wall Resp Effort & Inspection: normal respiratory effort Auscultation: Bilateral: Clear to Auscultation Cardio Palpation: normal PMI Rate: regular rate Rhythm: regular rhythm GI Inspection: normal to inspection Auscultation: normal bowel sounds Percussion: normal to percussion Palpation: no hepatosplenomegaly Skin General: no rashes or lesions noted Neuro General: patient alert Extrem General: normal to inspection Psych Affect: normal affect Assessment and Plan Assessment and Plan (1) Sessile colonic polyp: Status: Acute Comment: Patient with at least 6 tubular adenomas predominantly of the right colon. Several of these polyps also showed evidence of high-grade dysplasia. I initially discussed with patient that this may require an elective segmental colectomy, however, I shared pictures with gastroenterology and they feel confident that patient would be a candidate for a lift resection of one of her sessile polyps of the ascending colon. Thus, a referral is made to gastroenterology after today's visit for consideration of endoscopic removal. Update 10/30/2023: Patient has established a consult date with gastroenterology for 01/07/2024 Plan: I did talk with the patient and we discussed the technique of removing sessile polyps in the right side of the colon. I think she is amenable to a submucosal resection of the polyps. The risk of perforation, bleeding, need for emergent surgery was discussed with the patient. (2) Bloating symptom: Status: Acute Comment: This is an associated symptom patient's reflux and upper abdominal discomfort. Recommending EGD with biopsy for rule out H. pylori Plan: She does get intermittent bloating but since being on pantoprazole it has improved her symptoms. I would recommend that she switch to 20 mg of omeprazole. (3) Acid reflux: Status: Acute Comment: Patient remarks of numerous reflux symptoms in the 3 weeks since our last visit. She also complains of some associated fullness. She has never undergone prior endoscopy and does report some symptomatic improvement with Tums. Therefore I have recommended consideration of EGD with biopsy for H. pylori. I have examined the patient and the H&P has been reviewed. There are no clinical changes since date of exam.
[2024-01-24 09:00] VITALS: BP 101/70; BP 146/76; PULSE 58; RESP 16; TEMP 36.1; O2SAT 99
--- NOTE | 2024-01-24 09:01 | OP.CCLET_ITS ---
01/24/2024 Shayne Diaz Md Re : Colonoscopy procedure for Yuki Alamor Joe This procedure was performed on January. My impressions and recommendations are as follows: Impressions : - Four 1 to 2 mm polyps at the hepatic flexure and in the ascending colon, removed with a hot snare. Resected and retrieved. Clips were placed. Clip social services technician: [employer]. - The examination was otherwise normal on direct and retroflexion views. Recommendations : - Discharge patient to home. - Resume previous diet. - Continue present medications. - Await pathology results. - Repeat colonoscopy in 1 year for surveillance. My findings are described in the full procedure note, which is enclosed. If I can be of further assistance, please feel free to contact me at . Sincerely, Mandeep Ryan, 01/24/2024 9:01:03 AM This report has been signed electronically.
--- NOTE | 2024-01-24 09:01 | OP.COLON_ITS ---
Patient Name: Yuki Ocampo Procedure Date: 01/24/2024 8:14 AM Date of : 1955 Age: 68 Procedure: Colonoscopy Indications: For therapy of adenomatous polyps in the colon Providers: Mandeep Ryan DO Referring MD: Mandeep Ryan DO Medicines: Monitored Anesthesia Care Patient Profile: This is a 68 year old female. Refer to note in patient chart for documentation of history and physical. Last Colonoscopy: within the past 6 months. Complications: No immediate complications. Procedure: Pre-Anesthesia Assessment: - Prior to the procedure, a History and Physical was performed, and patient medications and allergies were reviewed. The patient is competent. The risks and benefits of the procedure and the sedation options and risks were discussed with the patient. All questions were answered and informed consent was obtained. Patient identification and proposed procedure were verified by the physician in the pre-procedure area. Mental Status Examination: alert and oriented. Airway Examination: normal oropharyngeal airway and neck mobility. Respiratory Examination: clear to auscultation. CV Examination: normal. Prophylactic Antibiotics: The patient does not require prophylactic antibiotics. Prior Anticoagulants: The patient has taken no anticoagulant or antiplatelet agents. ASA Grade Assessment: II - A patient with mild systemic disease. After reviewing the risks and benefits, the patient was deemed in satisfactory condition to undergo the procedure. The anesthesia plan was to use monitored anesthesia care (MAC). Immediately prior to administration of medications, the patient was re-assessed for adequacy to receive sedatives. The heart rate, respiratory rate, oxygen saturations, blood pressure, adequacy of pulmonary ventilation, and response to care were monitored throughout the procedure. The physical status of the patient was re-assessed after the procedure. After I obtained informed consent, the scope was passed under direct vision. Throughout the procedure, the patient's blood pressure, pulse, and oxygen saturations were monitored continuously. The Colonoscope was introduced through the anus and advanced to the cecum, identified by appendiceal orifice and ileocecal valve. The colonoscopy was performed without difficulty. The patient tolerated the procedure well. The quality of the bowel preparation was adequate. The ileocecal valve, appendiceal orifice, and rectum were photographed. Scope In: 8:26:11 AM Scope Withdrawal Time 0 hours 22 minutes 50 seconds Scope Out: 8:54:25 AM Total Procedure Duration Time 0 hours 28 minutes 14 seconds Findings: The perianal and digital rectal examinations were normal. Four sessile polyps were found in the hepatic flexure and ascending colon. The polyps were 1 to 2 mm in size. These polyps were removed with a hot snare. Resection and retrieval were complete. Verification of patient identification for the specimen was done. To prevent bleeding post-intervention, four hemostatic clips were successfully placed. Clip continuity director: [employer]. There was no bleeding at the end of the procedure. The exam was otherwise without abnormality on direct and retroflexion views. Impression: - Four 1 to 2 mm polyps at the hepatic flexure and in the ascending colon, removed with a hot snare. Resected and retrieved. Clips were placed. Clip continuity director: [employer]. - The examination was otherwise normal on direct and retroflexion views. Recommendation: - Discharge patient to home. - Resume previous diet. - Continue present medications. - Await pathology results. - Repeat colonoscopy in 1 year for surveillance. Procedure Code(s): --- Professional --- 49105, Colonoscopy, flexible; with removal of tumor(s), polyp(s), or other lesion(s) by snare technique CPT copyright 2021 [employer]. All rights reserved. The codes documented in this report are preliminary and upon hand bunch maker review may be revised to meet current compliance requirements. Mandeep Ryan DO 01/24/2024 9:01:03 AM This report has been signed electronically. Number of Addenda: 0 Note Initiated On: 01/24/2024 8:14 AM
[2024-01-24 09:04] VITALS: BP 108/69; BP 146/76; PULSE 69; RESP 16; O2SAT 97
--- NOTE | 2024-01-24 09:04 | PCM.POST.ANE ---
Anesthesia: Postop Eval I Current Vital Signs Temperature: 97 F Pulse Rate: 60 Blood Pressure: 101/70 Respiratory Rate: 16 Pulse Ox: 99 Oxygen Delivery Method: Room Air Assessment Airway patent: Yes Spontaneous unlabored respirations: Yes Mental status: Asleep nausea: No Vomiting: No Anesthesia Complication: No Fluid Hydration Crystalloid volume administer (ml): 900 Total IV fluid infused: 900 Progress Note Anesthesia document: Postop Eval 1 completed: Yes
[2024-01-24 09:05] VITALS: BP 101/70; PULSE 60; RESP 16; TEMP 36.1; O2SAT 99
[2024-01-24 09:10] VITALS: BP 125/71; BP 146/76; PULSE 69; RESP 16; TEMP 36.6; O2SAT 98
--- NOTE | 2024-01-24 09:23 | PCM.POSTANE2 ---
Anesthesia Postop Eval I Sum Postop Eval Completion status Anesthesia document: Postop Eval 1 completed: Yes Anesthesia Postop Eval I Summary Anesthesia Postop Eval I Summary: Anesthesia Postop Eval I: Assessment Summary Airway patent Yes 01/24/24 09:05 [email or web address] Spontaneous unlabored Yes 01/24/24 09:05 [email or web address] respirations Mental status Asleep 01/24/24 09:05 [email or web address] nausea No 01/24/24 09:05 [email or web address] Vomiting No 01/24/24 09:05 [email or web address] Anesthesia Postop Eval I: Fluid Summary Crystalloid volume administer 900 01/24/24 09:05 [email or web address] (ml) Colloids volume administered ( ml) Blood Product volume administered (ml) Total IV fluid infused 900 01/24/24 09:05 [email or web address] Anesthesia Postop Eval I: Summary Notes Anesthesia Complication No 01/24/24 09:05 [email or web address] Anesthesia Complication Comment: Post-operative progress note Anesthesia: Postop Eval II Evaluation Mental status: Awake Pain Level: 0 nausea: No Vomiting: No
[2024-01-24 09:36] VITALS: BP 146/76
== END 2024-01-24 09:59 | disposition home or self-care (01) ==
LOC: EN 06:54 → AC 06:54
PROVIDERS: PCP Family Medicine; Referring Provider Internal Medicine Gastroenterology; Visit Provider Internal Medicine Gastroenterology
PROC: 0DJD8ZZ Inspection of Lower Intestinal Tract, Via Natural or Artificial Opening Endoscopic (ICD-10-PCS; CPT 45378; principal; 2024-01-24 07:55)
DX: D12.2 Benign neoplasm of ascending colon (principal); D12.3 Benign neoplasm of transverse colon; K21.9 Gastro-esophageal reflux disease without esophagitis; Z79.899 Other long term (current) drug therapy
CPT/HCPCS: 45385; 88305; J7120; J2405

== ENCOUNTER → 2024-02-08 | Outpatient (CLI) | payer MEDICARE, OTHER, SELFPAY ==
--- NOTE | 2024-02-08 10:22 | MRI_ITS ---
STUDY: BILATERAL BREAST MR WITHOUT AND WITH CONTRAST REASON FOR EXAM: Female, 68 years old. Abnormal left mammogram. History of cysts by ultrasound. Breast cancer in maternal aunt and maternal cousin. TECHNIQUE: Multi-sequence multi-echo imaging of both breasts was performed with a dedicated breast coil. T1-weighted and T2-weighted images were performed before the administration of contrast. T1-weighted images were also performed after the intravenous administration of Clariscan contrast. COMPARISON: Prior mammograms dated November 16, 2020, November 17, 2021, January 10, 2023 and January 16, 2024. Unilateral left diagnostic mammogram dated January 18, 2024 and limited left breast ultrasound dated January 18, 2024. FINDINGS: RIGHT BREAST: Scattered fibroglandular densities with minimal background enhancement. No abnormal enhancing masses or areas of non-mass enhancement in the right breast. LEFT BREAST: Scattered fibroglandular densities with minimal background enhancement. At the 12:00 position of the left breast 3.4 cm behind the nipple there is an irregular enhancing mass measuring 1.3 cm x 1.1 cm x 1.8 cm. This mass does not correspond to the cyst noted on ultrasound dated January 18, 2024. Therefore, a second look ultrasound of the left breast with particular attention to the 12:00 position 3-4 cm behind the nipple is recommended to correlate with this MRI finding. No enlarged or abnormal lymph nodes. No abnormality in the visualized regions of the chest or liver. MRI/Breast Bilateral W/O and W IMPRESSION: Irregular enhancing mass at the 12:00 position 3-4 cm behind the nipple which does not correspond to the cyst noted on the prior left breast ultrasound dated January 18, 2024. A second look ultrasound of the left breast to correlate with the MRI findings is recommended, as outlined above. CATEGORY: BIRADS Category 0: Incomplete. Need additional imaging evaluation. A letter regarding these results will be sent to the patient by the facility within 30 days. Electronically Signed: John Mark MD at 9:32 EDT ,
[2024-02-08 10:47] LABS: CREATININE FINGERSTICK < 1.0 mg/dL (0.55-1.02); EGFR FINGERSTICK > 60.0000 mL/min (>60)
== END | disposition home or self-care (01) ==
LOC: MRI 10:12
PROVIDERS: PCP Family Medicine; Referring Provider Family Medicine; Visit Provider Family Medicine
DX: Z01.812 Encounter for preprocedural laboratory examination (principal); R92.8 Other abnormal and inconclusive findings on diagnostic imaging of breast
CPT/HCPCS: 77049; A9575; A4216; C8908

== ENCOUNTER → 2024-02-21 | Outpatient (CLI) | payer MEDICARE, OTHER, SELFPAY ==
--- NOTE | 2024-02-21 10:19 | US_ITS ---
STUDY: SUPERFICIAL ULTRASOUND - LEFT AXILLA, LEFT UPPER ARM REASON FOR EXAM: Female, 68 years old. Lump in left arm pit TECHNIQUE: A superficial ultrasound was performed with real-time and static zaldivar-scale imaging. COMPARISON: None. FINDINGS: Focused sonographic evaluation of the patient''s palpable lump shows a well-defined complex cystic structure measuring 1.0 x 0.9 x 0.6 cm. Borders are well-defined, there is increased through transmission of sound and no posterior shadowing or distortion. 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 There is no suspicious aggressive irregular nodule identified, no suspicious bulky adenopathy, there are physiologic lymph nodes in the axilla. US/Ext Non Vasc Limited/Soft Tiss IMPRESSION: Palpable lump corresponds to a complex predominantly cystic well-defined subcutaneous nodule measuring 1.0 x 0.9 x 0.6 cm. Physiologic subcentimeter in short axis dimension axillary adenopathy No suspicious aggressive abnormality noted Electronically Signed: Chandrakant Schneider MD at 15:35 EDT ,
== END | disposition home or self-care (01) ==
PROVIDERS: PCP Family Medicine; Referring Provider Family Medicine; Visit Provider Family Medicine
DX: N63.20 Unspecified lump in the left breast, unspecified quadrant (principal); R22.32 Localized swelling, mass and lump, left upper limb
CPT/HCPCS: 76882

== ENCOUNTER → 2024-03-04 | Outpatient (CLI) | payer MEDICARE, OTHER, SELFPAY ==
--- NOTE | 2024-03-04 09:26 | US_ITS ---
STUDY: ULTRASOUND BREAST - LEFT REASON FOR EXAM: Female, 68 years old. Abnormal MRI examination. TECHNIQUE: Axial and longitudinal images of the LEFT breast were performed with a high resolution ultrasound transducer. # OF IMAGES: 56 COMPARISON: Comparison is made with prior sonogram dated January 18, 2024 and prior MRI dated February 08, 2024. FINDINGS: LEFT Breast: There are 2 adjacent hypoechoic nodules at the 11:00 position of the breast at 2 to 3 cm from nipple. The larger measures 4 mm x 8 mm x 4 mm. Peripheral calcification is seen. There is also evidence of a hypoechoic area with calcification at the 3:00 position of breast just lateral to the areola. US/Breast Limited Unilateral IMPRESSION: The MRI abnormality corresponds to a 4 mm x 8 mm x 4 mm irregular hypoechoic nodule with calcification and shadowing at the 11:00 position of the breast at 2 to 3 cm from nipple. ASSESSMENT CATEGORY: BIRADS Category 4: Suspicious - Biopsy Should Be Considered. A letter regarding these results will be sent to the patient by the facility within 30 days. Electronically Signed: Rah Kenney MD at 10:33 EDT ,
== END | disposition home or self-care (01) ==
LOC: OPUS 09:24
PROVIDERS: PCP Family Medicine; Referring Provider Surgery; Visit Provider Surgery
DX: R92.8 Other abnormal and inconclusive findings on diagnostic imaging of breast (principal)
CPT/HCPCS: 76642

== ENCOUNTER → 2024-03-12 | Outpatient (CLI) | payer MEDICARE, OTHER, SELFPAY ==
--- NOTE | 2024-03-12 | BRBX_PTH ---
PATIENT: LEANDRA GUZMAN LOC: [facility]#:[id number] AGE/SX: 68/F ROOM: RE03/12/[address]: Dr. Guido Sharma MD : 1955 BED: DIS: 03/12/2024 SPEC #: [id number] RECD: 03/12/24 12:44 STATUS: HEATHER RESummer #: [id number] SAL: 03/12/24 00:[address]: Guido Sharma DEPT: SURGICAL PATHOLOGY RECD BY: Tito Vizcarra ENTERED: 03/12/24 12:45 SP TYPE: BREAST BX OTHR DR: Shayne Diaz MD Tissues: Left breast, NOS Procedures: Surgery Specimen Level IV HEADER OPERATION: Breast biopsy- Left PRE-OP DIAGNOSIS: Breast mass- Left TISSUE SUBMITTED: Left breast mass 11o'clock, 2cm from nipple Ischemic Time: 1 minute Fixation Time: 9 hours MICROSCOPIC DIAGNOSIS Left breast mass at 11o'clock, core biopsy: Detached fragments of atypical glandular mucosa. Lobular involution, fibrosis and mild duct ectasia. See comment. ANTONIOChris 03/13/2024 COMMENT The detached fragments of glandular mucosa may represent intraductal hyperplasia or fragments of papilloma. Clinical correlation is suggested. This case was reviewed and diagnosis discussed with Dr. Sharma on 03/18/2024. Immunohistochemistry ([id number]) supports the above diagnosis. Case has been reviewed in consultation with Dr. Vazquez who concurs with the above diagnosis. IDC:[id number] MICROSCOPIC DESCRIPTION Slides are reviewed. GROSS DESCRIPTION Received in fixative is one container labeled with the patient's name and designated Left breast 11o'clock, 2cm from nipple. The specimen consists of multiple elongated fragments of shah-yellow fibroadipose tissue measuring in aggregate 2.5 x 1.5 x 0.1cm. The entire specimen is submitted in one cassette. 03/12/2024 TC:? CPT:06362
--- NOTE | 2024-03-12 | IMM_PTH ---
PATIENT: LEANDRA GUZMAN LOC: [facility]#:[id number] AGE/SX: 68/F ROOM: RE03/12/[address]: Dr. Guido Sharma MD : 1955 BED: DIS: 03/12/2024 SPEC #: [id number] RECD: 03/13/24 10:52 STATUS: HEATHER REQ #: [id number] SAL: 03/12/24 00:[address]: Guido Sharma DEPT: IMMUNOHISTOCHEMISTRY RECD BY: Avtar Sherman ENTERED: 03/13/24 10:52 SP TYPE: IMMUNO OTHR DR: Shayne Diaz MD Tissues: Left breast, NOS Procedures: SMA (add) Calponin-1(initial) P53 (add) P40 (add) PHYSICIAN & INSTITUTION [place] [address] SPECIMEN INFORMATION: Tissue Source: Left breast mass Clinical Info: Breast mass, left Specimen Number: [id number] CPT code: 37212,06423r7 METHODOLOGY: Deparaffinized sections of prefer/formalin-fixed tissue or PAP/DQ stained slides are incubated with monoclonal/polyclonal antibodies/oligonucleotide probes. Localization is made via biotin free immunoperoxidase method. Appropriate controls are performed and reacted as expected. Results on target cell population are indicated in the following table: RESULTS: ANTIBODY / CLONE RESULT Calponin-1 ([id number]) negative Actin (1A4) negative P40 (BC28) positive, rare cells P53 (DO-7) positive, rare cells (wild type pattern) These tests were developed and their performance characteristics determined by [facility]. They may not have been cleared or approved by the U.S. Food and Drug Administration. The FDA has determined that such clearance or approval is not necessary. The above immunohistochemical/dualISH markers are ordered by Dr. Marisela Gray and reviewed by the Pathologist. INTERPRETATION: Left breast, 11o'clock, 2cm from nipple, core biopsy: Detached unoriented fragments of atypical glandular tissue. COMMENT: Further classification of these fragment is not possible. 03/14/2024
--- NOTE | 2024-03-12 09:31 | US_ITS ---
STUDY: ULTRASOUND BREAST - LEFT REASON FOR EXAM: Female, 68 years old. Left breast mass. TECHNIQUE: Axial and longitudinal images of the LEFT breast were performed with a high resolution ultrasound transducer. # OF IMAGES: 24 COMPARISON: Comparison is made with prior sonogram of the left breast is March 04, 2022. FINDINGS: LEFT Breast: Under direct sonographic guidance, the surgeon performing core biopsies of the 2 suspicious nodules at the 11:00 position of the breast at 2 cm from nipple. US/US Breast Biopsy 1st Lesion IMPRESSION: Ultrasound-guided core biopsies of the 2 adjacent suspicious nodules at the 11:00 position of the breast at 2 cm from the nipple. ASSESSMENT CATEGORY: BIRADS Category 2: Benign. A letter regarding these results will be sent to the patient by the facility within 30 days. Electronically Signed: Rah Kenney MD at 13:53 EDT ,
--- NOTE | 2024-03-12 11:28 | PRO.PCM_ITS ---
Procedure Report Date of Procedure: 03/12/24 Procedure: Core needle biopsy of left breast Description: After a detailed discussion regarding the risks and benefits of the biopsy procedure, the patient was positioned supine on the gurney with a bump under her left side. Formal, written consents were obtained prior to positioning. Ultra sound was used to localize the lesion in the upper inner quadrant of the breast (there were in fact 2 areas of interest with a cyst just medial to a more solid mass). Locally 1% lidocaine was infiltrated about the cyst and the mass using ultrasound guidance. I used the instillation of local anesthetic to try to elevate the cyst and the mass away from patient's adjacent chest wall. Once the area was sufficiently anesthetized, a small stab incision was made in the skin and the 10-gauge mammotome core needle device was introduced percutaneously. Ultrasound was used to guide needle aperture underneath suspicious lesion. As the device was advanced through the breast tissue there was significant resistance from patient's moderately dense breast and it appeared that the patient's cyst had ruptured. Once appropriately positioned, the mass was serially sampled with 5 cores which were placed in solution for pathologic processing. A marking clip was then placed under ultrasound guidance within the mass. Pressure was applied until hemostasis was obtained. The skin was cleaned and Steri-Strips were applied over the stab incision for the biopsy procedure. Patient tolerated the procedure with no complications and was directed to mammography for a completion picture. EBL: 2 mL Complications: None Procedures Integumentary 16xxx-193xx: 13527 Bx breast 1st lesion us imag
== END | disposition home or self-care (01) ==
LOC: US 09:30
PROVIDERS: PCP Family Medicine; Referring Provider Surgery; Visit Provider Surgery
DX: N60.42 Mammary duct ectasia of left breast (principal); N60.32 Fibrosclerosis of left breast; N63.22 Unspecified lump in the left breast, upper inner quadrant
CPT/HCPCS: 19083; 88305; 88341; 88342

== ENCOUNTER → 2024-04-01 | Outpatient (CLI) | payer MEDICARE, OTHER, SELFPAY ==
--- NOTE | 2024-04-01 | AXNB_PTH ---
PATHOLOGY RESULTS PATIENT: LEANDRA GUZMAN LOC: [facility] U#:[id number] AGE/SX: 68/F ROOM: RE04/01/[address]: Dr. Guido Sharma MD : 1955 BED: DIS: 04/01/2024 SPEC #: [id number] RECD: 04/01/24 09:19 STATUS: HEATHER REQ #: [id number] SAL: 04/01/24 00:[address]: Guido Sharma DEPT: SURGICAL PATHOLOGY RECD BY: Mariana Lopes ENTERED: 04/01/24 09:56 SP TYPE: AX NODE BX OTHR DR: Shayne Diaz MD Tissues: Axillary lymph node, NOS Procedures: Surgery Specimen Level IV HEADER OPERATION: Excision of left axillary mass PRE-OP DIAGNOSIS: Left axillary mass TISSUE SUBMITTED: Left axillary mass MICROSCOPIC DIAGNOSIS Left axillary mass, biopsy: Fragments of epidermal inclusion cyst. AM.mr 04/02/2024 MICROSCOPIC DESCRIPTION Slides are reviewed. GROSS DESCRIPTION Received in fixative is one container labeled with the patient's name and designated Left axillary mass. The specimen consists of multiple fragments of pink-white soft tissue that in aggregate measure 1.5 x 2.0 x 0.3 cm. The specimen is totally submitted in one cassette. 04/01/2024 TC:5 CPT:26248
== END | disposition home or self-care (01) ==
LOC: LABSPEC 09:24
PROVIDERS: PCP Family Medicine; Referring Provider Surgery; Visit Provider Surgery
DX: L72.0 Epidermal cyst (principal)
CPT/HCPCS: 88305

== ENCOUNTER 2024-04-18 09:27 | Day surgery (SDC) | payer MEDICARE, OTHER, SELFPAY ==
[2024-04-18] VITALS (9 sets, daily range): BP systolic 126–150; BP diastolic 72–93; PULSE 70–90; RESP 16; TEMP 36.3–36.9; O2SAT 98–100; BMI 25.6
[2024-04-18] MEDS: Cefazolin 2 GM in Syringe IV (10:45)
[2024-04-18] MEDS: Bupivacaine Mpf 0.5% 30 ML VIAL (12:16)
[2024-04-18] MEDS: Acetaminophen 500 MG Tablet 1000 MG PO (13:13)
== END 2024-04-18 14:17 | disposition home or self-care (01) ==
LOC: SDC 09:28 → AC 09:30
PROVIDERS: PCP Family Medicine; Referring Provider Surgery; Visit Provider Surgery
PROC: (CPT 19083; principal; 2024-04-18 10:45)
DX: N60.22 Fibroadenosis of left breast (principal); K21.9 Gastro-esophageal reflux disease without esophagitis; N60.12 Diffuse cystic mastopathy of left breast; Z79.899 Other long term (current) drug therapy
CPT/HCPCS: 19125; 00400; 76098; 88305; 88341; 88342; A4648; A4216; J2405

== ENCOUNTER → 2024-06-12 | Outpatient (CLI) | payer MEDICARE, OTHER, SELFPAY ==
[2024-06-12 12:26] LABS: Absolute Neutrophil Count 3.7 X10^3/uL (2.0-7.7); Basophil# 0.03 X10^3/uL; Basophil% 0.5 % (0-1); Eosinophil# 0.06 X10^3/uL; Hematocrit 45.5 % (37-47); Hemoglobin 15.5 g/dL (12.0-15.0); Lymphocyte % 25.7 % (19-41); Mean Corp Hgb Conc 34.1 g/dL (32-36); Mean Corpuscular Hgb 30.5 pg (27.0-32.0); Mean Corpuscular Volume 89.6 fL (81-99); Mean Platelet Vol. 10.8 fl (6.2-12.0); Monocyte# 0.57 X10^3/uL; Monocyte% 9.8 % (0-10); NRBC Flagged by Analyzer 0 % (0-5); Neutrophil # 3.66 X10^3/uL (2.7-7.7); Neutrophil % 62.7 % (47-70); Platelet Count 259 K/mm3 (150-450); RBC Distribution Width CV 12.2 % (11.6-14.6); RBC Distribution Width SD 40.1 fl (35.1-43.9); Red Blood Count 5.08 M/mm3 (4.2-5.4); White Blood Count 5.8 K/mm3 (4.4-11.0)
[2024-06-12 12:39] LABS: ALB/GLOB Ratio 1.2 RATIO (0.9-2.4); AST(SGOT) 18 U/L (15-37); Alanine Aminotransfer ALT/SGPT 19 U/L (13-56); Albumin, Serum 3.7 g/dL (3.2-5.0); Alkaline Phosphatase 89 U/L (45-117); Anion Gap 5 (5-15); BUN 16 mg/dL (7-18); BUN/Creat Ratio 16.2 RATIO (10-20); Calcium,Total 9.8 mg/dL (8.5-10.1); Chloride 106 mmol/L (98-107); Creatinine, Serum 0.99 mg/dL (0.55-1.02); EST Glomerular Filtration Rate 59 mL/min (>60); Est Glom Filt Rate - Afr Amer 71 mL/min (>60); Globulin 3.1 g/dL (2.2-4.2); Glucose 155 mg/dL (74-106); Potassium 3.9 mmol/L (3.5-5.1); Protein, Total 6.8 g/dL (6.4-8.2); Sodium Level 140 mmol/L (136-145)
== END | disposition home or self-care (01) ==
LOC: MFPLAB 11:16
PROVIDERS: Visit Provider Family Medicine
DX: R53.83 Other fatigue (principal)
CPT/HCPCS: 36415; 80053; 84443; 85025

== ENCOUNTER → 2024-07-15 | Outpatient (CLI) | payer MEDICARE, OTHER, SELFPAY ==
[2024-07-15 18:04] LABS: Vitamin B12 288 pg/mL (211-911)
[2024-07-15 19:08] LABS: Ferritin 63 ng/mL (8-252); Iron 116 ug/dL (50-170); Iron Binding Capacity,Total 341 ug/dL (250-450); Magnesium 2.3 mg/dL (1.6-2.6)
[2024-07-22 15:07] LABS: Vitamin B1, Thiamine 134.8 nmol/L (66.5-200.0); Zinc, Plasma or Serum 71 ug/dL (44-115)
== END | disposition home or self-care (01) ==
LOC: MFPLAB 14:43
PROVIDERS: PCP Family Medicine; Referring Provider Family Medicine; Visit Provider Family Medicine
DX: R53.83 Other fatigue (principal)
CPT/HCPCS: 36415; 82607; 82728; 82746; 83540; 83550; 83735; 84425; 84630

== ENCOUNTER → 2024-08-29 | Outpatient (CLI) | payer MEDICARE, OTHER, SELFPAY ==
[2024-08-31 08:08] LABS: Rubeola IgG Ab > 300.0 AU/mL (Immune >16.4)
== END | disposition home or self-care (01) ==
LOC: MFPLAB 12:33
PROVIDERS: PCP Family Medicine; Referring Provider Family Medicine; Visit Provider Family Medicine
DX: Z11.59 Encounter for screening for other viral diseases (principal)
CPT/HCPCS: 36415; 86765

== ENCOUNTER → 2024-10-29 | Outpatient (CLI) | payer MEDICARE, OTHER, SELFPAY ==
[2024-11-03 04:07] LABS: Clam <0.10 kU/L (Class 0); Codfish <0.10 kU/L (Class 0); Corn <0.10 kU/L (Class 0); Egg, White <0.10 kU/L (Class 0); Milk (Cow) <0.10 kU/L (Class 0); Peanut <0.10 kU/L (Class 0); SCALLOP <0.10 kU/L (Class 0); SESAME SEED <0.10 kU/L (Class 0); Shrimp <0.10 kU/L (Class 0); Soybean <0.10 kU/L (Class 0); Walnut, (Food) <0.10 kU/L (Class 0); Wheat <0.10 kU/L (Class 0)
== END | disposition home or self-care (01) ==
LOC: LAB 09:56
PROVIDERS: PCP Family Medicine; Referring Provider Otolaryngology; Visit Provider Otolaryngology
DX: T78.40XA Allergy, unspecified, initial encounter (principal)
CPT/HCPCS: 36415; 86003

== ENCOUNTER 2025-02-19 05:30 | Day surgery (SDC) | payer MEDICARE, OTHER, SELFPAY ==
[2025-02-19] VITALS (9 sets, daily range): BP systolic 106–134; BP diastolic 65–81; PULSE 59–75; RESP 16; TEMP 36.2–36.4; O2SAT 97–100; BMI 25.8
--- OUTSIDE RECORDS SUMMARY | 2025-02-19 05:45 | XMS RPT_ITS | CCD ---
Author Organization [facility] CliniSyar Care Team Providers Care Lighting Adviser Name Role Phone DO Gabriela Coffman Primary Care Provider DO Gabriela Coffman Referring Provider Dr. Guido Sharma Attending Provider Dr. Guido Sharma Other Provider MD Shayne Diaz Primary Care Provider MD Shayne Diaz Referring Provider Shayne Diaz MD Referring Provider Marylin JEAN-CVeronica Attending Provider Dr. Rosana Goldsmith MD Attending Provider Dr. Rosana Goldsmith MD Referring Provider Dr. Hung Saldana MD Attending Provider Dr. Guido Sharma MD Attending Provider Shayne Diaz MD Primary Care Provider Shayne Diaz MD Attending Provider Dr. Guido Sharma MD Attending Provider Shayne Diaz MD Referring Provider Dr. Aaron Roberts MD Attending Provider Dr. Aaron Roberts MD Referring Provider Shayne Diaz MD Primary Care Provider Shayne Diaz MD Attending Provider Shayne Diaz MD Referring Provider Dr. Mandeep Ryan DO Attending Provider Edith, Guido Attending Unavailable Joe, Chalon Primary Care Unavailable Bortz, Guido Referring Unavailable Bortz, Guido Attending Unavailable Joe, Chalon Primary Care Unavailable Bortz, Guido Referring Unavailable Wartmann, Aaron Referring Unavailabl e Wartmann, Aaron Attending Unavailabl e Jeo, Chalon Primary Care Unavailable Joe, Chalon Referring Unavailable Mandeep Ryan Attending Unavailable Joe, Chalon Primary Care Unavailable Bortz, Guido Attending Unavailable Joe, Chalon Primary Care Unavailable Joe, Chalon Referring Unavailable Joe, Lillianon Attending Unavailable Bortz, Guido Referring Unavailable Joe, Chalon Primary Care Unavailable Bortz, Guido Attending Unavailable Bortz, Guido Referring Unavailable Joe, Chalon Primary Care Unavailable Bortz, Guido Attending Unavailable Joe, Chalon Referring Unavailable Joe, Lillianon Attending Unavailable Joe, Chalon Primary Care Unavailable Bortz, Guido Attending Unavailable Saldana, Hung Attending Unavailable Isckarus, Rosana Referring Unavailable Isckarus, Rosana Attending Unavailable Joe, Chalon Primary Care Unavailable Mandeep Rayn Attending Unavailable Joe, Chalon Primary Care Unavailable Joe, Chalon Referring Unavailable Joe, Lillianon Attending Unavailable Joe, Chalon Primary Care Unavailable Joe, Chalon Referring Unavailable Bortz, Guido Attending Unavailable Joe, Chalon Primary Care Unavailable Joe, Chalon Referring Unavailable Veronica Coulter Attending Unavailable Joe, Chalon Primary Care Unavailable Joe, Chalon Referring Unavailable Bortz, Guido Attending Unavailable Isckarus, Rosana Attending Unavailable Joe, Chalon Referring Unavailable Bortz, Guido Attending Unavailable Joe, Chalon Primary Care Unavailable Bortz, Guido Referring Unavailable Joe, Chalon Primary Care Unavailable Bortz, Guido Attending Unavailable Bortz, Guido Consulting Unavailable Bortz, Guido Referring Unavailable Joe, Chalon Primary Care Unavailable Bortz, Guido Attending Unavailable Bortz, Guido Consulting Unavailable Allergies Allergy Classification Reported Allergen(s) Allergy Type Date of Onset Reaction(s) Facility (7 sources) Azithromycin Drug Allergy 3 Upset Stomach [facility] (7 sources) Minocycline Drug Allergy 3 Other [facility] Comment on above: ringing in ears (1 source) Azithromycin Drug Allergy 5 [facility] (1 source) Minocycline Drug Allergy [facility] Medications Current Medications Medication Drug Class(es) Dates Sig (Normalized) Sig (Original) alendronic acid 70 mg oral tablet (3 sources) Bisphosphonate Start: 04-07-2024 Alendronate 70 mg tablet Active 70 mg PO MILLER April 07, 2024 12:00am metroNIDAZOLE 7.5 mg/ml topical cream (5 sources) Nitroimidazole Antimicrobial Start: 07-13-2023 Metronidazole 0.75 % cream Active 1 NMA TOPICAL TWICE A DAY July 13, 2023 1:00am omeprazole 40 mg delayed release oral capsule (10 sources) Proton Pump Inhibitor Start: 10-16-2024 take 1 capsule by mouth once daily Omeprazole 40 mg capsule,delayed release(DR/EC) Active 40 mg PO daily October 16, 2024 12:00am Start: 01-07-2024 End: 10-16-2024 take 1 capsule by mouth once daily Omeprazole 20 mg capsule,delayed release(DR/EC) Discontinued 20 mg PO DAILY September 25, 2024 10:12am October 16, 2024 9:21am sodium sulfacetamine8% sulfur4% (2 sources) Start: 07-13-2023 apply 1 [IU] topically once daily sodium sulfacetamine8% sulfur4% Active 1 UNIT TOPICAL 1 time daily July 13, 2023 1:00am Start: 07-13-2023 sodium sulface tamine8% sulfur4% Active TOPICAL July 13, 2023 1:00am sulfacetamide sodium 80 mg/ml / sulfur 40 mg/ml medicated liquid soap (3 sources) Sulfonamide Antibacterial Start: 01-21-2024 Sulfacetamide Sodium-Sulfur 8-4 % suspension Active 1 NMA TOPICAL DAILY January 21, 2024 12:00am Completed/Discontinued Medications Medication Drug Class(es) Dates Sig (Normalized) Sig (Original) Acetaminophen (Tylenol Extra Strength) 500 mg powder in packet (5 sources) Start: 07-13-2023 End: 01-07-2024 take 500 mg by mouth every four hours as needed for pain Acetaminophen (Tylenol Extra Strength) 500 mg powder in packet Discontinued 500 mg PO Q4H as needed for pain July 13, 2023 1:00am January 07, 2024 8:08am Start: 07-13-2023 take 500 mg by mouth every four hours Acetaminophen (Tylenol Extra Strength) 500 mg powder in packet Active 500 MG PO Q4H July 13, 2023 1:00am amoxicillin 500 mg oral capsule (5 sources) Penicillin-class Antibacterial Start: 08-03-2023 End: 09-18-2023 take 1 capsule by mouth once daily Amoxicillin 500 mg capsule Discontinued 500 mg PO DAILY August 03, 2023 1:00am September 18, 2023 12:40pm calcium carbonate 1500 mg oral tablet (3 sources) Start: 01-21-2024 End: 11-25-2024 take 1 tablet by mouth once daily Calcium Carbonate 600 mg calcium (1,500 mg) tablet Discontinued 600 mg PO DAILY January 21, 2024 12:00am November 25, 2024 8:43am cholecalciferol 0.05 mg oral capsule (3 sources) Vitamin D Start: 01-07-2024 End: 11-25-2024 take 1 capsule by mouth once daily Cholecalciferol (Vitamin D3) 50 mcg (2,000 unit) capsule Discontinued 50 ug PO DAILY January 07, 2024 12:00am November 25, 2024 8:43am clindamycin 10 mg/ml topical solution (5 sources) Lincosamide Antibacterial Start: 07-13-2023 End: 09-18-2023 Clindamycin Phosphate 1 % solution Discontinued 1 NMA TOPICAL DAILY July 13, 2023 1:00am September 18, 2023 12:40pm fexofenadine hydrochloride 180 mg oral tablet (4 sources) Histamine-1 Receptor Antagonist Start: 09-18-2023 End: 01-07-2024 take 1 tablet by mouth once daily Fexofenadine 180 mg tablet Discontinued 180 mg PO DAILY September 18, 2023 12:00am January 07, 2024 8:09am pantoprazole 40 mg delayed release oral tablet (6 sources) Proton Pump Inhibitor Start: 10-11-2023 End: 01-07-2024 take 1 tablet by mouth once daily Pantoprazole (Protonix) 40 mg tablet,delayed release (DR/EC) Discontinued 40 mg PO DAILY October 30, 2023 2:05pm January 07, 2024 10:15am prednisoLONE acetate 10 mg/ml ophthalmic suspension (3 sources) Corticosteroid Start: 05-14-2024 End: 11-25-2024 Prednisolone Acetate 1 % drops,suspension Discontinued 1 NMA OPHTHALMIC THREE TIMES A DAY May 14, 2024 1:00am November 25, 2024 8:43am sertraline 50 mg oral tablet (7 sources) Serotonin Reuptake Inhibitor Start: 05-15-2023 End: 07-13-2023 take 1 tablet by mouth every twenty-four hours Sertraline 50 mg tablet Discontinued 50 mg PO Q24H May 15, 2023 1:00am July 13, 2023 10:17am sodium sulfacetamine8% sulfur4% cleanser (3 sources) Start: 07-13-2023 End: 01-21-2024 apply 1 [IU] topically once daily sodium sulfacetamine8% sulfur4% cleanser Discontinued 1 U TOPICAL 1 time daily July 13, 2023 1:00am January 21, 2024 3:48pm traMADol hydrochloride 50 mg oral tablet (7 sources) Opioid Agonist Start: 05-15-2023 End: 07-13-2023 take 1 tablet by mouth every six hours as needed for pain Tramadol 50 mg tablet Discontinued 50 mg PO EVERY 6 HOURS as needed for pain 12 3 May 15, 2023 12:22pm July 13, 2023 10:17am Problems Active Problems Problem Classification Problem Date Documented Da te Episodic/Chronic Abdominal pain (9 sources) Right upper quadrant pain; Translations: [Right upper quadrant pain] 08-03-2023 Episodic Comment on above: Patient is a 68-year -old female presents with 2-month history of right upper quadrant abdominal discomfort. She does note that this discomfort seems primarily located on the lateral aspect of her thoracoabdominal region. It is not clearly associated with food nor are there time of day or position associations that she has been able to determine. With this nonspecific abdominal discomfort she has undergone workup for possible gallbladder relation and had a normal right upper quadrant ultrasound but HIDA was read as abnormal due to a low ejection fraction. Based on the nonspecific description it is difficult for me to truly elicit whether or not her pain is related to the gallbladder. I have suggested that she begin to keep a food diary and a pain diary to determine if there is any correlation between the 2. I would then like to follow-up with her in 2 to 3 weeks to assess her findings. In the interim I suggested the differential also would include some form of peptic ulcer disease or other upper GI related pathology. We discussed the possibility of proceeding with a EGD exam if she is not fully inclined toward surgery or there is some doubt as to the pains connection to the gallbladder.Update: Patient all but denies recurrence of her abdominal pain despite on restricting her diet. Therefore, I find this to be unlikely related to gallbladder disease. She is reporting some reflux and bloating symptoms. Thus, I have recommended consideration of a EGD with biopsy for possible H. pylori. Patient is reluctant but receptive.Update 10/11/2023: Patient presents today with further vague complaints of epigastric and right upper quadrant discomfort. There do not appear to be any clear causes for the discomfort. However, on exam patient seems to favor a epigastric region with her complaints suggesting this is more likely related to her recently characterized hiatal hernia that was seen on EGD last month. I held a lengthy conversation with patient and her family regarding the findings of not only her EGD but also her colonoscopy. Out of this I recommended that we consider a PPI medication and see how her symptoms respond. Patient is reluctant to consider surgery at this time. We briefly discussed that we should hold off on cholecystectomy at this time given the strong impression that patient gives that her discomfort is not necessarily from gallbladder dysfunction.Update 10/30/2023: Patient denies any further right upper quadrant discomfort. She also confirms tolerance of fried meals in her diet. Her exam is completely benign. Therefore I have recommended against cholecystectomy and shared we should at least consider another month of PPI therapy before considering discontinuation. Is Mrs. Ocampo wish to continue until she follows up with GI to elicit their opinion as well. I have shared with her that this is entirely reasonable and that the reported downsides of chronic PPI therapy are not as significant as once believed after rigorous review. She expresses appreciation for this viewpoint. I have given her red flag warning signs to be alert to should she experience them that would indicate worsening gallbladder disease. E Codes: Fall (7 sources) Fall from steps ; Translations: [Fall (on) (from) other stairs and steps, initial encounter] 05-15-2023 Episodic Esophageal disorders (7 sources) Gastroesophageal reflux disease; Translations: [Gastro-esophageal reflux disease without esophagitis] 08-03-2023 Chronic Comment on above: Patient remarks of n umerous reflux symptoms in the 3 weeks since our last visit. She also complains of some associated fullness. She has never undergone prior endoscopy and does report some symptomatic improvement with Tums. Therefore I have recommended consideration of EGD with biopsy for H. pylori. Fluid and electrolyte disorders (7 sources) Mild dehydration; Translations: [Dehydration] 05-15-2023 Episodic Nausea and vomiting (6 sources) Nausea; Translations: [Nausea] 06-16-2024 Episodic Other and unspecified benign neoplasm (3 sources) Polyp of colon; Translations: [Polyp of colon] 10-30-2023 Episodic Comment on above: Patient with at leas t 6 tubular adenomas predominantly of the right colon. Several of these polyps also showed evidence of high-grade dysplasia. I initially discussed with patient that this may require an elective segmental colectomy, however, I shared pictures with gastroenterology and they feel confident that patient would be a candidate for a lift resection of one of her sessile polyps of the ascending colon. Thus, a referral is made to gastroenterology after today's visit for consideration of endoscopic removal.Update 10/30/2023: Patient has established a consult date with gastroenterology for 01/07/2024 Other fractures (7 sources) Compression fracture of thoracic spine; Translations: [Wedge compression fracture of T9-T10 vertebra, initial encounter for closed fracture] 05-15-2023 Episodic Other gastrointestinal disorders (5 sources) Abdominal bloating; Translations: [Abdominal distension (gaseous)] 08-03-2023 Episodic Comment on above: This is an associate d symptom patient's reflux and upper abdominal discomfort. Recommending EGD with biopsy for rule out H. pylori Other gastrointestinal disorders (2 sources) Abdominal distension (gaseous); Translations: [Flatulence, eructation, and gas pain] 08-03-2023 Episodic Other nutritional; endocrine; and metabolic disorders (6 sources) Decrease in appetite; Translations: [Anorexia] 06-16-2024 Episodic Other skin disorders (3 sources) Sebaceous cyst of skin; Translations: [Sebaceous cyst] 04-01-2024 Episodic Comment on above: Patient with uncomfo rtable cyst of the left axilla that has stayed largely stable in size (according to patient's trunk if anything). Imaging and exam are consistent with probable sebaceous cyst. I have recommended consideration of excision given patient's mild symptoms, persistence of the lesion, and patient's overall workup for possible concurrent left breast lesion. Patient is receptive. Will tentatively plan for excision at the same time of breast biopsy if indicated by above imaging.Update 04/01/2024: Completed excision of left axillary sebaceous cyst during clinic today in uncomplicated fashion. Diagnosis confirmed after there was inadvertent rupture of the cyst simply with our skin incision given that the cyst resided just superficial to the dermis. Thankfully, however, there was minimal inflammation about the cyst wall and it was removed piecemeal in its entirety. The cavity was irrigated and closed primarily. Wound care instructions were provided. Superficial injury; contusion (7 sources) Contusion of back; Translations: [Contusion of unspecified back wall of thorax, initial encounter] 05-15-2023 Episodic Syncope (7 sources) Syncope; Translations: [Syncope and collapse] 05-15-2023 Episodic Past or Other Problems Problem Classification Problem Date Documented Date Episodic/Chronic Allergic reactions (1 source) Allergy, unspecified, initial encounter; Translations: [Allergy, unspecified, initial encounter] Onset: 11-03-2024 Episodic Immunizations and screening for infectious disease (1 source) Encounter for screening for other viral diseases; Translations: [Encounter for screening for other viral diseases] Onset: 09-05-2024 Episodic Malaise and fatigue (7 sources) Malaise; Translations: [Other malaise] Onset: 07-30-2024 06-16-2024 Episodic Nonmalignant breast conditions (10 sources) Atypical ductal hyperplasia of breast; Translations: [Unspecified benign mammary dysplasia of left breast] Onset: 04-12-2024 05-14-2024 Episodic Comment on above: Patient just under 3 weeks out from ultrasound-guided core needle breast biopsy of a breast mass located at the 11 o'clock position 2 cm from the nipple. Pathology returned as atypical glandular epithelium. After further discussion with pathology more tissue is needed to make a definitive diagnosis and they remain concerned given the atypia noted. During today's visit I examined patient's biopsy site which remains ecchymotic but there are no signs of hematoma or infection. I also examined the site deeply with ultrasound to confirm location of patient's biopsy clip which I did positively identified a depth of just over 1 cm 2 cm from the nipple or along the 10:00 meridian then the 11:00. With this ability to identify the biopsy clip feel ultrasound no plan for excisional breast biopsy in the operating room and plan to place a localizing wire using ultrasound after sedation is started by anesthesia. Other screening for suspected conditions (not mental disorders or infectious disease) (20 sources) Imaging of biliary tract abnormal; Translations: [Abnormal results of function studies of other organs and systems] Onset: 03-28-2024 08-03-2023 Episodic Comment on above: Patient with ejectio n fraction of 23% post CCK administration. I have been careful to thoroughly outlined the significance of these findings and share with her that this does qualify as biliary dyskinesia, however, I also shared with her that this is not a diagnosis that should be regarded alongside of cholecystitis in the sense that her in action could lead her to severe illness. This was done as a way of reassurance. Patient is very reluctant to undergo medical procedures of any kind. Many questions were answered from both her and her family. We have resolved to conduct a follow-up visit after a thorough recording of her dietary habits and any additional details she can provide about her pain complaints. (See above)Update: As above, patient's history and exam are unconvincing for gallbladder etiology. Therefore, I am not inclined to pursue cholecystectomy at this time but have provided patient with red flag warning symptoms of gallbladder inflammation. She asked what the likelihood of is for progression of her gallbladder dysfunction and I answered her frankly that it would be nearly impossible to prognosticate based on the sheer number of variablesUpdate 10/30/2023 patient only with mildly reduced ejection fraction (23%) and does not appear symptomatic from right a consistent following over the last several months. Further, her resolution of symptoms has come at a time when she has expanded her diet to things that would be considered triggers for gallbladder disease. Thus I am recommending against cholecystectomy at this time but red flag warning signs are givenUpdate 06/16/2024: Patient presents today after being rereferred through her PCP. A detailed history is elicited along with an abdominal exam. Patient's primary complaints are for malaise, poor appetite, and some mild nausea that occurs immediately with eating if it occurs. She also describes sleeping more than usual. I suspect she may have had a upper respiratory tract infection or even a GI illness that is taking some time to resolve as I cannot attribute her description to gallbladder dysfunction at this time. Her labs are reviewed and there is a suggestion of some underlying dehydration as her hemoglobin is elevated suggesting hemoconcentration. I shared with gallbladder dysfunction I would expect more delayed onset of her symptoms and for her primary complaint to be the right upper quadrant discomfort which she insists is a minor part of her complaints today. I suggest that she begin a food diary to chronicle when her symptoms started and after what meals as well as time of day. I offered that she could start a probiotic given her recent antibiotic course and asked her to consider whether or not her visual changes may be contributory. Lastly, I encouraged her to follow through with her plans for counseling regarding her anxiety.Update 07/08/2024: Through a lengthy visit I reviewed that patient has experienced a modest improvement in her nausea complaints but seems most chiefly concerned that food simply does not taste good anymore. She relates that she experiences her symptoms primarily at midday after minimal oral intake for lunch. She also describes a discomfort that is positional in nature and ameliorated when she assumes a seated position. Her exam remains unimpressive for right upper quadrant abdominal discomfort and is more in line with musculoskeletal discomfort as I palpate over her rib and elicit tenderness. She does have a history of a T9 compression fracture with an associated fall so I would question whether or not there is a posttraumatic element involved. Either way, the description of dysgeusia, timing of her symptoms and their description do not fit well with a gallbladder etiology. I did share that her HIDA imaging shows an objective abnormality of her gallbladder and I would be willing to proceed with cholecystectomy to see if a positive effect could be leveraged, however, I cautioned that there would be no way of prognosticating such before hand. Instead I offered an alternative that she work diligently to try to get her anxiety and check (as she went on to describe significant anxiety that drives from the COVID era) and see what effect this had on her somatic symptoms. I recommended that she bring some of these concerns up to her PCP and elicit their thoughts for a more holistic approach to this situation. I remain available for proceeding with cholecystectomy if that is ultimately deemed to be the most appropriate course of action. Patient generally de scribes normal bowel habits but is never undergone colon cancer screening with colonoscopy. Thus, given her indications for diagnostic EGD as outlined above I am recommending we proceed for a screening colonoscopy at the same time. Patient is reluctant but prompted by both her and her daughter to proceed as recommended. I discussed a 2-day bowel prep and the general procedure. Patient is a 68-year -old female, with apparent average risk for breast cancer, who presents for initially abnormal screening mammogram of the left breast that was followed up with abnormal diagnostic mammography but reassuring breast ultrasound. MRI of the left breast was also ruled a BI-RADS 0 on the basis of a 1.8 cm lesion between 3 and 4 cm deep to the nipple. Although follow-up ultrasound of the breast was recommended this was never completed. Given the depth of this suspicious area I was, unsurprisingly, not able to palpate anything suspicious on exam. Thus, I recommend keeping with radiology's recommendation for second look ultrasound. If a suspicious lesion is found with this imaging we will plan to proceed for biopsy. Other skin disorders (1 source) Sebaceous cyst; Translations: [Sebaceous cyst] Onset: 05-14-2024 Episodic Other skin disorders (1 source) Localized swelling, mass and lump, unspecified; Translations: [Localized swelling, mass and lump, unspecified] Onset: 04-25-2024 Episodic Results Test Name Value Interpretation Reference Range Facility Gastroenterology Visit [facility] 11-25-2024 Gastroenterology Visit Report [facility] [address] [address] OFFICE VISIT Date of Service: 11/25/24 MR#: [id number] Acct: [id number] Name: LEANDRA OCAMPO Rep #: [id number] 5 : 1955 Provider: Mandeep Ryan DO Age/Sex: 69/F Location: [facility] [place] Status: Signed Intake Vital Signs 06/16/24 10:30 Height 4 ft 11 in Intake Visit Reasons: FU Allergies minocycline Allergy (Verified 07/08/24 10:11) Other azithromycin (From Zithromax Z-Victor M) Adverse Reaction (Mild, Verified 07/08/24 10:11) Upset Stomach Medications ???Medication ???Instructions ???Recorded ???Confirmed ???Type metronidazole 0.75 % topical cream 1 applic topical BID 07/13/23 History sulfacetamide sodium-sulfur 8 %-4 1 applic topical DAILY 01/21/24 0 11/25/24 History % topical suspension alendronate 70 mg tablet 70 mg PO MILLER 04/07/24 11/25/24 Hist ory omeprazole 40 mg capsule,delayed 40 mg PO QDAY #30 caps 10/16/24 Rx release Have you fallen in the past year?: No PFSH Medical History Screening mammogram for breast cancer Hx of sebaceous cyst Abnormal ultrasound of breast Breast cyst Osteoporosis Wears glasses Depression Anxiety Post-menopausal Arthritis Injury of head and neck Injury of back Syncope Gastric reflux Non-smoker History of irregular heartbeat Surgical History History of cataract extraction S/P breast biopsy, left Hx of breast biopsy Hx of colonoscopy H/O tubal ligation H/O removal of cyst H/O dilation and curettage Family History Daughter Asthma Mother Arthritis Osteoporosis Skin cancer CVA (cerebral vascular accident) Father Bladder cancer Kidney disease Son Diabetes Grandmother Diabetes Asthma Grandfather CVA (cerebral vascular accident) Arthritis Aunt Breast cancer Social History Smoking Status: Never smoker alcohol intake: never substance use type: does not use HPI HPI Details: LEANDRA OCAMPO, is a 69 F who presents to the office today for follow up. HIDA 1.9.24 abnormal 23% EGD and Colonoscopy w/ Dr Sharma 4.11.24 EGD No gross lesions in the duodenal bulb, in the first portion of the duodenum and in the second portion of the duodenum. No specimens collected. Erythematous mucosa in the antrum. Biopsied. A few gastric polyps. Biopsied. Large hiatal hernia. No specimens collected. Inflamed mucosa in the esophagus. Biopsied. Z-line irregular, 35 cm from the incisors. No specimens collected. Grade II esophageal varices. No specimens collected. A single gastric polyp. Biopsied. The examination was otherwise normal. Colonoscopy Three 4 to 5 mm polyps in the proximal ascending colon, in the mid ascending colon and in the cecum, removed with a hot snare. Resected and retrieved. Likely benign polypoid lesion in the mid ascending colon. Biopsied. Tattooed. One 10 mm, non-bleeding polyp in the proximal transverse colon, removed with a hot snare. Resected and retrieved. One 7 mm polyp in the sigmoid colon, removed with a hot snare. Resected and retrieved. *BGI established 7 pt reports that she had scopes with Dr Sharma in September 2023 and there was a polyp he was unable to remove and wanted pt to follow up with Dr Ryan. Pt continuing with Pantoprazole 40mg daily. Colonoscopy 01.24.24 Four 1 to 2 mm polyps at the hepatic flexure and in the ascending colon, removed with a hot snare. Resected and retrieved. Clips were placed. 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 The examination was otherwise normal on direct and retroflexion views. OV 617 pt reports that she has been having dental pain and nausea. Has an appt with her dentist today. Pt states that her ENT increased her pantoprazole to 40mg daily stating that her issues in her throat are coming from acid reflux. ROS Const Constitutional: No fatigue, fever(s) or weight change ENT ENT: No difficulty swallowing Gastro GI: Positive for nausea/dyspepsia; No abdominal pain, belching, bloating, change in bowel habits, change in stool character, coffee ground emesis, constipation, cramping, diarrhea, heartburn, difficulty swallowing, feeling full early, excessive flatus, incontinent of stools, Vomiting blood/hematemesis, Blood in stool, loose stools, Black,tarry stools, pain with swallowing, vomiting or other Musc Musculoskeletal: No joint pain Skin Skin: No yellowing of the eye or itchy eyes Psych Psychiatric: Positive for anxiety and No depression Endo Endocrine: No fatigue or weight change Aller/Imm Allergy/Immunologic: No itchy eyes Larry/Lymp Hematologic/Lymphatic: No easy bleeding or easy bruising Exam (more content not included)... Normal [facility] Allergen, Food Profileon CLAM <0.10 Normal Class 0 [facility] Comment on above: Performed By: #### L 5500.0410 #### [facility] [address] [place], [address] CODFISH <0.10 Normal Class 0 [facility] Comment on above: Performed By: #### L 5500.0410 #### [facility] [address] [place], [place], [id number] COMMENT Comment Normal . [facility] Comment on above: Result Comment: Alexis ovalle of Specific IgE Class Description of Class ----- < 0.10 0 Negative 0.10 - 0.31 0/I Equivocal/Low 0.32 - 0.55 I Low 0.56 - 1.40 II Moderate 1.41 - 3.90 III High 3.91 - 19.00 IV Very High 19.01 - 100.00 V Very High >100.00 Very High Performed By: #### L 5500.0410 #### [facility] [address] [place], [place], [id number] CORN <0.10 Normal Class 0 [facility] Comment on above: Performed By: #### L 5500.0410 #### [facility] [address] [place], [address] EGG, WHITE <0.10 Normal Class 0 [facility] Comment on above: Performed By: #### L 5500.0410 #### [facility] [address] [place], [address] MILK (COW) <0.10 Normal Class 0 [facility] Comment on above: Performed By: #### L 5500.0410 #### [facility] [address] [place], [address] PEANUT <0.10 Normal Class 0 [facility] Comment on above: Performed By: #### L 5500.0410 #### [facility] [address] [place], [address] SCALLOP <0.10 Normal Class 0 [facility] Comment on above: Performed By: #### L 5500.0410 #### [facility] [address] [place], [place], [address] SESAME SEED <0.10 Normal Class 0 [facility] Comment on above: Result Comment: Perf ormed at: [facility] [id number] Pearl Technician: Gabbi Ford MD, Phone: [phone] Performed By: #### L 5500.0410 #### [facility] [address] [place], [place], [address] SHRIMP <0.10 Normal Class 0 [facility] Comment on above: Performed By: #### L 5500.0410 #### [facility] [address] [place], [address] SOYBEAN <0.10 Normal Class 0 [facility] Comment on above: Performed By: #### L 5500.0410 #### [facility] [address] [place], [address] WALNUT,(Food) <0.10 Normal Class 0 [facility] Comment on above: Performed By: #### L 5500.0410 #### [facility] [address] [place], [address] WHEAT <0.10 Normal Class 0 [facility] Comment on above: Performed By: #### L 5500.0410 #### [facility] [address] [place], [address] Laboratory - Miscellaneous t estsOrdered By: Aaron Roberts on 10-29-2024 Service comment (Unsp spec) [Interp] Comment . [facility] Comment on above: Levels of Specific I gE Class Description of Class ----- < 0.10 0 Negative 0.10 - 0.31 0/I Equivocal/Low 0.32 - 0.55 I Low 0.56 - 1.40 II Moderate 1.41 - 3.90 III High 3.91 - 19.00 IV Very High 19.01 - 100.00 V Very High >100.00 Very High Serum black walnut IgE antib chi assay (units/volume)Ordered By: Aaron Roberts on 10-29-2024 Black Ennis IgE Qn (S) <0.10 kU/L Class 0 [facility] Serum clam IgE antibody assa y (units/volume)Ordered By: Aaron Roberts on 10-29-2024 Clam IgE Qn (S) <0.10 kU/L Class 0 [facility] Serum codfish IgE antibody a ssay (units/volume)Ordered By: Aaron Roberts on 10-29-2024 Codfish IgE Qn (S) <0.10 kU/L Class 0 [facility] Serum corn IgE antibody assa y (units/volume)Ordered By: Aaron Roberts on 10-29-2024 [place] IgE Qn (S) <0.10 kU/L Class 0 [facility] Serum cow milk IgE antibody assay (units/volume)Ordered By: Aaron Roberts on 10-29-2024 Cow milk IgE Qn (S) <0.10 kU/L Class 0 [facility] Serum egg white IgE antibody assay (units/volume)Ordered By: Aaron Roberts on 10-29-2024 Egg white IgE Qn (S) <0.10 kU/L Class 0 [facility] Serum peanut IgE antibody as say (units/volume)Ordered By: Aaron Roberts on 10-29-2024 Peanut IgE Qn (S) <0.10 kU/L Class 0 [facility] Serum soybean IgE antibody a ssay (units/volume)Ordered By: Aaron Roberts on 10-29-2024 Soybean IgE Qn (S) <0.10 kU/L Class 0 [facility] Serum wheat IgE antibody ass ay (units/volume)Ordered By: Aaron Roberts on 10-29-2024 Wheat IgE Qn (S) <0.10 kU/L Class 0 [facility] Rubeola IgG Abon 08-31-2024 RUBEOLA Ab, IgG > 300.0 Normal Immune >16.4 [facility] Comment on above: Order Comment: Order Date: 08/29/24 Order Info: [id number] - RUBEOG Result Comment: Nega tive <13.5 Equivocal 13.5 - 16.4 Positive >16.4 Presence of antibodies to Rubeola is presumptive evidence of immunity except when acute infection is suspected. Performed at: [facility] [id number] [place], [place] [id number] Pearl Technician: Rizwan Ryan PhD, Phone: [phone] Performed By: #### L 3100.3300 #### [facility] [address] [place], [place], [address] MeV IgG IA Qn (S)Ordered By: Shayne Diaz on 08-29-2024 Rubeola (Measles) IgG Antibody > 300.0 AU/mL Immune >16.4 [facility] Comment on above: Negative <13.5 Equiv ocal 13.5 - 16.4 Positive >16.4Presence of antibodies to Rubeola is presumptive evidenceof immunity except when acute infection is suspected.Performed at: [facility] [id number] Director: Rizwan Ryan PhD, Phone: [phone] Serum measles virus IgG anti body assay by immunoassay (units/volume)Ordered By: Shayne Diaz on 08-29-2024 MeV IgG IA Qn (S) > 300.0 AU/mL Immune >16.4 [facility] Comment on above: Negative <13.5 Equiv ocal 13.5 - 16.4 Positive >16.4Presence of antibodies to Rubeola is presumptive evidenceof immunity except when acute infection is suspected.Performed at: [facility] [id number] Director: Rizwan Ryan PhD, Phone: [phone] Vitamin B1, Thiamineon 07-22 VIT B1 THIAMINE 134.8 nmol/L Normal 66.5-200.0 [facility] Comment on above: Order Comment: Test( s) [id number]-Bsq. B1, Whole Blood was developed and its performance characteristics determined by [facility]. It has not been cleared or approved by the Food and Drug Administration. UNK Performed By: #### L 3300.8000 #### [facility] [address] [place], [place], [address] Zinc, Plasma or Serumon 07-12 ZINC,PLASMA/SER 71 ug/dL Normal 44-115 [facility] Comment on above: Order Comment: Test( s) [id number]-Ryh. B1, Whole Bloodwas developed and its performance characteristicsdetermined by [facility]. It has not been cleared or approvedby the Food and Drug Administration. Result Comment: Dete ction Limit = 5 Performed at: [address] [id number] Pearl Technician: Gabbi Ford MD, Phone: [phone] Performed By: #### L 506.0250, L503.6030, L501.5200, L503.6550, L503.0105, L3300.9900 ####[facility] [address] [place], [address] Ferritinon 07-15-2024 Ferritin [Mass/Vol] 63 ng/mL Normal 8-252 [facility] Comment on above: Order Comment: Order Date: 07/15/24Order Info: [id number] - MGOrder Info: [id number] - IBCOrder Info: [id number] - FEROrder Info: [id number] - FOLS Performed By: #### L 506.0250, L503.6030, L501.5200, L503.6550, L503.0105, L3300.9900 ####[facility] [address] [place], [place], [address] Ferritin measurementOrdered By: Shayne Diaz on 07-15-2024 Ferritin [Mass/Vol] 63 ng/mL 8-252 [facility] Folates, (Folic Acid)on FOLATES 32.90 ng/mL Normal 3.1-55.4 [facility] Comment on above: Order Comment: Order Date: 07/15/24Order Info: [id number] - MGOrder Info: [id number] - IBCOrder Info: [id number] - FEROrder Info: [id number] - FOLSUNKN Performed By: #### L 506.0250, L503.6030, L501.5200, L503.6550, L503.0105, L3300.9900 ####[facility] [address] [place], [place], [address] Folic acid measurementOrdere d By: Shayne Diaz on 07-15-2024 Folate 32.90 ng/mL 3.1-55.4 [facility] Iron (Unsp spec) [Mass/Mass] Ordered By: Shayne Diaz on 07-15-2024 Iron [Mass/Vol] 116 ug/dL 50-170 [facility] Iron measurement (mass/mass) Ordered By: Shayne Diaz on 07-15-2024 Iron (Unsp spec) [Mass/Mass] 116 ug/dL 50-170 [facility] Iron saturation [Mass fracti on]Ordered By: Shayne Diaz on 07-15-2024 Iron Saturation 34.0 % 15.0-55.0 [facility] Iron+Iron Binding Capacityon 07-15-2024 Iron [Mass/Vol] 116 ug/dL Normal 50-170 [facility] Comment on above: Order Comment: Order Date: 07/15/24Order Info: [id number] - MGOrder Info: [id number] - IBCOrder Info: [id number] - FEROrder Info: [id number] - FOLSUNK Performed By: #### L 506.0250, L503.6030, L501.5200, L503.6550, L503.0105, L3300.9900 ####[facility] [address] [place], [place], [id number] IRON SATURATION 34.0 Normal 15.0-55.0 [facility] Comment on above: Order Comment: Order Date: 07/15/24Order Info: [id number] - MGOrder Info: [id number] - IBCOrder Info: [id number] - FEROrder Info: [id number] - FOLSUNK Performed By: #### L 506.0250, L503.6030, L501.5200, L503.6550, L503.0105, L3300.9900 ####[facility] [address] [place], [address] TIBC 341 ug/dL Normal 250-450 [facility] Comment on above: Order Comment: Order Date: 07/15/24Order Info: [id number] - MGOrder Info: [id number] - IBCOrder Info: [id number] - FEROrder Info: [id number] - FOLSUNK Performed By: #### L 506.0250, L503.6030, L501.5200, L503.6550, L503.0105, L3300.9900 ####[facility] [address] [place], [place], [phone]) Magnesiumon 07-15-2024 Magnesium [Mass/Vol] 2.3 mg/dL Normal 1.6-2.6 [facility] Comment on above: Order Comment: Order Date: 07/15/24Order Info: [id number] - MGOrder Info: [id number] - IBCOrder Info: [id number] - FEROrder Info: [id number] - FOLS Performed By: #### L 506.0250, L503.6030, L501.5200, L503.6550, L503.0105, L3300.9900 ####[facility] [address] [place], [place], [address] Magnesium measurementOrdered By: Shayne Diaz on 07-15-2024 Magnesium [Mass/Vol] 2.3 mg/dL 1.6-2.6 [facility] Serum or plasma iron saturat ion measurement (mass fraction)Ordered By: Shayne Diza on 07-15-2024 Iron saturation [Mass fraction] 34.0 % 15.0-55.0 [facility] Serum or plasma thiamine brandon surement (mass/volume)Ordered By: Shayne Diaz on 07-15-2024 Thiamine [Mass/Vol] 134.8 nmol/L 66.5-200.0 [facility] Serum or plasma zinc measure ment (mass/volume)Ordered By: Shayne Diaz on 07-15-2024 Zinc [Mass/Vol] 71 ug/dL 44-115 [facility] Comment on above: Detection Limit = 5P erformed at: [address] [id number] Director: Gabbi Ford MD, Phone: [phone] TIBCOrdered By: Shayne Diaz on 07-15-2024 Total Iron Binding Capacity 341 ug/dL 250-450 [facility] Thiamine [Mass/Vol]Ordered B y: Shayne Diaz on 07-15-2024 Whole Blood Vitamin B1 Level 134.8 nmol/L 66.5-200.0 [facility] Vitamin B12on 07-15-2024 Cobalamin (Vitamin B12) [Mass/Vol] 288 pg/mL Normal 211-911 [facility] Comment on above: Order Comment: Order Date: 07/15/24 Order Info: [id number] - B12 Performed By: #### L 506.0250, L503.6030, L501.5200, L503.6550, L503.0105, L3300.9900 #### [facility] [address] [place], [address] Vitamin B12 measurementOrder ed By: Shayne Diaz on 07-15-2024 Cobalamin (Vitamin B12) [Mass/Vol] 288 pg/mL -911 [facility] Zinc [Mass/Vol]Ordered By: Yasmani Diaz on 07-15-2024 Zinc Level 71 ug/dL 44-115 [facility] Comment on above: Detection Limit = 5P erformed at: [facility] [address] [place], [place] [id number] Director: Gabbi Ford MD, Phone: [phone] Surgery Visit Reporton 07-08 Surgery Visit Report [facility] [address] [place] [address] OFFICE VISIT Date of Service: 07/08/24 MR#: [id number] Acct: [id number] Name: LEANDRA OCAMPO Rep #: [id number] 1 : 1955 Provider: Dr. Guido olvera MD Age/Sex: 69/F Location: [facility] Status: Signed Intake Vital Signs 06/16/24 10:30 Height 4 ft 11 in BP 127/83 H Blood Pressure Location Rt brachial Position Sitting Respiration 16 Intake Visit Reasons: DISCUSS GALLBLADDER ISSUES Chief Complaint: gallbladder issues Nut Threader Required: No Is patient in pain?: No Allergies minocycline Allergy (Verified 07/08/24 10:11) Other azithromycin (From Zithromax Z-Victor M) Adverse Reaction (Mild, Verified 07/08/24 10:11) Upset Stomach Medications ???Medication ???Instructions ???Recorded ???Confirmed ???Type metronidazole 0.75 % topical cream 1 applic topical BID 07/13/23 07/08/24 History cholecalciferol (vitamin D3) 50 50 mcg PO DAILY 01/07/24 07/08/24 History mcg (2,000 unit) capsule calcium carbonate 600 mg PO DAILY 01/21/24 07/08/24 History sulfacetamide sodium-sulfur 8 %-4 1 applic topical DAILY 01/21/24 07/08/24 History % topical suspension alendronate 70 mg tablet 70 mg PO MILLER 04/07/24 07/08/24 History prednisolone acetate 1 % eye 1 drp ophthalmic (eye) TID 05/14/24 07/08/24 History drops,suspension omeprazole 20 mg capsule,delayed 20 mg PO DAILY #30 caps 05/21/24 07/08/24 Rx release Have you fallen in the past year?: No PFSH Medical History Screening mammogram for breast cancer Hx of sebaceous cyst Abnormal ultrasound of breast Breast cyst Osteoporosis Wears glasses Depression Anxiety Post-menopausal Arthritis Injury of head and neck Injury of back Syncope Gastric reflux Non-smoker History of irregular heartbeat Surgical History History of cataract extraction S/P breast biopsy, left Hx of breast biopsy Hx of colonoscopy H/O tubal ligation H/O removal of cyst H/O dilation and curettage Family History Daughter Asthma Mother Arthritis Osteoporosis Skin cancer CVA (cerebral vascular accident) Father Bladder cancer Kidney disease Son Diabetes Grandmother Diabetes Asthma Grandfather CVA (cerebral vascular accident) Arthritis Aunt Breast cancer Social History Smoking Status: Never smoker alcohol intake: never substance use type: does not use HPI HPI HPI: Patient is a 68-year-old female who is well-established with this clinic related to her history of abnormal HIDA, double endoscopy, and most recently a breast lesion. She was last seen 06/16/2024 to revisit her concerns about her abnormal HIDA imaging. She presents again today with her and daughter. She has completed a food diary in great detail as requested at her last visit. She declares that she has not seen any significant patterns for her symptoms and shared this diary with her daughter who reached the same conclusion. Her daughter adds that her mother had been over at her house and had consumed some fast food from [employer] but this did not trigger any nausea. On the whole Mrs. Ocampo is able to confirm that her nausea has been somewhat better. They also note that pizza was tolerated without difficulty. When queried about a possible time of day this year suggest that mid to early afternoon (more specifically 3 PM to 7 PM) seems to be the worst. Patient declares that she wakes up feeling fine and has because of this that she is worried that there is a mental component. She details how she is now seen a counselor for 2 sessions to discuss her underlying anxiety. She goes on to express frustration that even her go to meal which she elaborates consists of chicken, baked potato, and salad simply did not taste good the other day. As a general rule she notes that salty things seem to taste the best. When asked if perhaps her sense of smell is at all responsible for her decreased taste her quickly shares that there is no deficiency with this sense. Mrs. Ocampo details the pain besides the absence of taste to be located in the right upper quadrant wrapping around the back but is also able to definitively share that this pain is worse when standing and relieved with sitting. Below is recapitulated from patient's prior visit for ease of review: Patient is a 68-year-old female who is well-established with this clinic related to her history of abnormal HIDA, double endoscopy, and most recently a breast lesion. She was last seen 05/06/2024. She presents today with her and daughter after meeting with her PCP due to a n (more content not included)... Normal [facility] Surgery Visit Reporton 06-16 Surgery Visit Report [facility] [address] [place] [address] OFFICE VISIT Date of Service: 06/16/24 MR#: [id number] Acct: [id number] Name: LEANDRA OCAMPO Rep #: [id number] : 1955 Provider: Dr. Guido olvera MD Age/Sex: 68/F Location: [facility] Status: Signed Intake Vital Signs 05/14/24 15:07 06/16/24 10:30 Height 4 ft 11 in 4 ft 11 in Weight: 129 lb 6 oz BMI 26.1 BP 154/85 H 127/83 H Blood Pressure Location Lt brachial Rt brachial Position Sitting Sitting Respiration 16 16 Pulse 60 Pulse Source Monitor Temp 97.5 F L Pulse Oximetry (%) 97 Oxygen Delivery Method room air Intake Visit Reasons: DISCUSS GALLBLADDER ISSUES Chief Complaint: gallbladder issues Nut Threader Required: No Is patient in pain?: No Allergies minocycline Allergy (Verified 06/16/24 10:31) Other azithromycin (From Zithromax Z-Victor M) Adverse Reaction (Mild, Verified 06/16/24 10:31) Upset Stomach Medications ???Medication ???Instructions ???Recorded ???Confirmed ???Type metronidazole 0.75 % topical cream 1 applic topical BID 07/13/23 06/16/24 History cholecalciferol (vitamin D3) 50 50 mcg PO DAILY 01/07/24 06/16/24 History mcg (2,000 unit) capsule calcium carbonate 600 mg PO DAILY 01/21/24 06/16/24 History sulfacetamide sodium-sulfur 8 %-4 1 applic topical DAILY 01/21/24 06/16/24 History % topical suspension alendronate 70 mg tablet 70 mg PO MILLER 04/07/24 06/16/24 History prednisolone acetate 1 % eye 1 drp ophthalmic (eye) TID 05/14/24 06/16/24 History drops,suspension omeprazole 20 mg capsule,delayed 20 mg PO DAILY #30 caps 05/21/24 06/16/24 Rx release Have you fallen in the past year?: No PFSH Medical History Screening mammogram for breast cancer Hx of sebaceous cyst Abnormal ultrasound of breast Breast cyst Osteoporosis Wears glasses Depression Anxiety Post-menopausal Arthritis Injury of head and neck Injury of back Syncope Gastric reflux Non-smoker History of irregular heartbeat Surgical History History of cataract extraction S/P breast biopsy, left Hx of breast biopsy Hx of colonoscopy H/O tubal ligation H/O removal of cyst H/O dilation and curettage Family History Daughter Asthma Mother Arthritis Osteoporosis Skin cancer CVA (cerebral vascular accident) Father Bladder cancer Kidney disease Son Diabetes Grandmother Diabetes Asthma Grandfather CVA (cerebral vascular accident) Arthritis Aunt Breast cancer Social History Smoking Status: Never smoker alcohol intake: never substance use type: does not use HPI HPI HPI: Patient is a 68-year-old female who is well-established with this clinic related to her history of abnormal HIDA, double endoscopy, and most recently a breast lesion. She was last seen 05/06/2024. She presents today with her and daughter after meeting with her PCP due to a number of vague complaints. She immediately states there has not been a lot of pain. Instead she describes a vague discomfort gesturing to her right upper quadrant and states that it does occasionally move through to her back. She is unable to quantify how often she experiences this symptom. More prevalent is her complaint of nausea and fatigue. She states last week she began feeling nauseous when she was expecting company for the 's holiday. She had to ask her son-in-law (who is a pharmacist) whether it was permissible to take Zofran along with her omeprazole. She notes she took Zofran on 2 separate occasions. She describes eating only 2-3 bites of food that even taste good at the beginning. Because of this she finds she must force herself to eat. She otherwise states she did not think she was sick but admits that she has been feeling tired and sleeping longer than usual. She also shares that she recently saw her PCP for a routine physical and complained of a scratchy throat with some bloody congestion at that time she was started on doxycycline twice daily for 5 days. She notes that just prior to starting this antibiotic she developed poor appetite and has been progressive. Her adds that he believes the poor appetite started after she began using eyedrops following her cataract surgeries. Regarding the latter, she notes she is using temporary glasses but it feels as though everything is magnifying. Outside of the above Mrs. Lopez reports that she is trying to establish with a new counselor for management of anxiety. She also adds that she elected to proceed with out initiating tamoxifen for her breast atypical ductal hyperplasia (more content not included)... Normal [facility] Absolute neutrophil countOrd ered By: Hung Saldana on 06-12-2024 Neutrophils (Bld) [#/Vol] 3.7 10*3/uL 2.0-7.7 [facility] Albumin to globulin ratioOrd ered By: Hung Saldana on 06-12-2024 Albumin/Globulin [Mass ratio] 1.2 {ratio} 0.9-2.4 [facility] Basophil percentageOrdered B y: Hung Saldana on 06-12-2024 Basophils/100 WBC (Bld) 0.5 % 0-1 [facility] Bilirubin, totalOrdered By: Hung Saldana on 06-12-2024 Bilirubin [Mass/Vol] 0.80 mg/dL 0.20-1.00 [facility] Comment on above: For patients on eltr ombopag therapy, use of Dimension [place] TBIL is not recommended. Blood urea nitrogen (BUN)/cr eatinine ratioOrdered By: Hung Saldana on 06-12-2024 Urea nitrogen/Creatinine [Mass ratio] 16.2 mg/mg 10-20 [facility] CBC W/Diff, Automatedon Absolute Lymph 1.50 X10 3/uL Normal 0.83-4.51 [facility] Comment on above: Performed By: #### L 500.4050, L100.0100, L501.9520 ####[facility] [address] [place], [address] Absolute Neut 3.7 X10 3/uL Normal 2.0-7.7 [facility] Comment on above: Performed By: #### L 500.4050, L100.0100, L501.9520 ####[facility] [address] [place], [address] Basophils/100 WBC (Bld) 0.5 % Normal 0-1 [facility] Comment on above: Performed By: #### L 500.4050, L100.0100, L501.9520 ####[facility] [address] [place], [address] Eosinophils/100 WBC (Bld) 1.0 % Normal 0-5 [facility] Comment on above: Performed By: #### L 500.4050, L100.0100, L501.9520 ####[facility] [address] [place], [address] Erythrocyte distribution width (RBC) [Ratio] 12.2 % Normal 11.6-14.6 [facility] Comment on above: Performed By: #### L 500.4050, L100.0100, L501.9520 ####[facility] [address] [place], [address] Hematocrit (Bld) [Volume fraction] 45.5 % Normal 37-47 [facility] Comment on above: Performed By: #### L 500.4050, L100.0100, L501.9520 ####[facility] [address] [place], [address] Hemoglobin (Bld) [Mass/Vol] 15.5 g/dL High 12.0-15.0 [facility] Comment on above: Performed By: #### L 500.4050, L100.0100, L501.9520 ####[facility] [address] [place], [address] IG% 0.300 Normal 0.0-0.9 [facility] Comment on above: Result Comment: IG% - Immature Granulocytes (promyelocytes, myelocytes and metamyelocytes) > 1% indicates that a LEFT SHIFT is Present. Performed By: #### L 500.4050, L100.0100, L501.9520 ####[facility] [address] [place], [address] Lymphocytes/100 WBC (Bld) 25.7 % Normal 19-41 [facility] Comment on above: Performed By: #### L 500.4050, L100.0100, L501.9520 ####[facility] [address] [place], [address] MCH (RBC) [Entitic mass] 30.5 pg Normal 27.0-32.0 [facility] Comment on above: Performed By: #### L 500.4050, L100.0100, L501.9520 ####[facility] [address] [place], [address] MCHC (RBC) [Mass/Vol] 34.1 g/dL Normal 32-36 [facility] Comment on above: Performed By: #### L 500.4050, L100.0100, L501.9520 ####[facility] [address] [place], [address] MCV (RBC) [Entitic vol] 89.6 fL Normal 81-99 [facility] Comment on above: Performed By: #### L 500.4050, L100.0100, L501.9520 ####[facility] [address] [place], [address] Monocytes/100 WBC (Bld) 9.8 % Normal 0-10 [facility] Comment on above: Performed By: #### L 500.4050, L100.0100, L501.9520 ####[facility] [address] [place], [address] Neutrophils/100 WBC (Bld) 62.7 % Normal 47-70 [facility] Comment on above: Performed By: #### L 500.4050, L100.0100, L501.9520 ####[facility] [address] [place], [address] Nucleated RBC (Bld) [#/Vol] 0 10*3/uL Normal 0-5 [facility] Comment on above: Performed By: #### L 500.4050, L100.0100, L501.9520 ####[facility] [address] [place], [address] Platelet mean volume (Bld) [Entitic vol] 10.8 fL Normal 6.2-12.0 [facility] Comment on above: Performed By: #### L 500.4050, L100.0100, L501.9520 ####[facility] [address] [place], [address] Platelets (Bld) [#/Vol] 259 10*3/uL Normal 150-450 [facility] Comment on above: Performed By: #### L 500.4050, L100.0100, L501.9520 ####[facility] [address] [place], [address] RBC (Bld) [#/Vol] 5.08 10*6/uL Normal 4.2-5.4 [facility] Comment on above: Performed By: #### L 500.4050, L100.0100, L501.9520 ####[facility] [address] [place], [address] RDW SD 40.1 fl Normal 35.1-43.9 [facility] Comment on above: Performed By: #### L 500.4050, L100.0100, L501.9520 ####[facility] [address] [place], [address] WBC (Bld) [#/Vol] 5.8 10*3/uL Normal 4.4-11.0 [facility] Comment on above: Performed By: #### L 500.4050, L100.0100, L501.9520 ####[facility] [address] [place], [address] Carbon dioxide measurementOr dered By: Hung Saldana on 06-12-2024 CO2 [Moles/Vol] 29.0 mmol/L 21.0-32.0 [facility] Chloride measurementOrdered By: Hung Saldana on 06-12-2024 Chloride [Moles/Vol] 106 mmol/L 98-107 [facility] Comprehensive Metabolic Prof ilon 06-12-2024 Albumin [Mass/Vol] 3.7 g/dL Normal 3.2-5.0 [facility] Comment on above: Performed By: #### L 500.4050, L100.0100, L501.9520 ####[facility] [address] [place], [address] Albumin/Globulin [Mass ratio] 1.2 {ratio} Normal 0.9-2.4 [facility] Comment on above: Performed By: #### L 500.4050, L100.0100, L501.9520 ####[facility] [address] [place], [address] ALK P 89 U/L Normal 45-117 [facility] Comment on above: Performed By: #### L 500.4050, L100.0100, L501.9520 ####[facility] [address] [place], [address] ALT [Catalytic activity/Vol] 19 U/L Normal 13-56 [facility] Comment on above: Performed By: #### L 500.4050, L100.0100, L501.9520 ####[facility] [address] [place], [address] AST [Catalytic activity/Vol] 18 U/L Normal 15-37 [facility] Comment on above: Performed By: #### L 500.4050, L100.0100, L501.9520 ####[facility] [address] [place], [address] Bilirubin [Mass/Vol] 0.80 mg/dL Normal 0.20-1.00 [facility] Comment on above: Result Comment: For patients on eltrombopag therapy, use of Dimension [place] TBIL is not recommended. Performed By: #### L 500.4050, L100.0100, L501.9520 ####[facility] [address] [place], [address] BUN/CRE 16.2 RATIO Normal 10-20 [facility] Comment on above: Performed By: #### L 500.4050, L100.0100, L501.9520 ####[facility] [address] [place], [address] CA,Total 9.8 mg/dL Normal 8.5-10.1 [facility] Comment on above: Performed By: #### L 500.4050, L100.0100, L501.9520 ####[facility] [address] [place], [address] Chloride [Moles/Vol] 106 mmol/L Normal 98-107 [facility] Comment on above: Performed By: #### L 500.4050, L100.0100, L501.9520 ####[facility] [address] [place], [address] CO2 [Moles/Vol] 29.0 mmol/L Normal 21.0-32.0 [facility] Comment on above: Performed By: #### L 500.4050, L100.0100, L501.9520 ####[facility] [address] [place], [address] Creatinine [Mass/Vol] 0.99 mg/dL Normal 0.55-1.02 [facility] Comment on above: Result Comment: The validity of the calculated GFR GFRAA in patients over 70 years has not been determined. Clinical correlation is essential. Performed By: #### L 500.4050, L100.0100, L501.9520 ####[facility] [address] [place], [address] EST GFR - AA 71 mL/min Normal >60 [facility] Comment on above: Result Comment: Afri can Singaporean GFR Calc Performed By: #### L 500.4050, L100.0100, L501.9520 ####[facility] [address] [place], [address] GAP 5 Normal 5-15 [facility] Comment on above: Performed By: #### L 500.4050, L100.0100, L501.9520 ####[facility] [address] [place], [address] GFR/1.73 sq M.predicted among non-blacks MDRD (S/P/Bld) [Vol rate/Area] 59 mL/min/{1.73_m2} Low >60 [facility] Comment on above: Result Comment: Non- GFR Calc Performed By: #### L 500.4050, L100.0100, L501.9520 ####[facility] [address] [place], [address] Globulin (S) [Mass/Vol] 3.1 g/dL Normal 2.2-4.2 [facility] Comment on above: Performed By: #### L 500.4050, L100.0100, L501.9520 ####[facility] [address] [place], [address] Glucose [Mass/Vol] 155 mg/dL High 74-106 [facility] Comment on above: Result Comment: Fast ing Glucose result greater than or equal to 126 mg/dL suggests DIABETES MELLITUS per A.D.A. criteria. Performed By: #### L 500.4050, L100.0100, L501.9520 ####[facility] [address] [place], [address] Potassium [Moles/Vol] 3.9 mmol/L Normal 3.5-5.1 [facility] Comment on above: Performed By: #### L 500.4050, L100.0100, L501.9520 ####[facility] [address] [place], [address] Sodium [Moles/Vol] 140 mmol/L Normal 136-145 [facility] Comment on above: Performed By: #### L 500.4050, L100.0100, L501.9520 ####[facility] [address] [place], [address] T PROT 6.8 g/dL Normal 6.4-8.2 [facility] Comment on above: Performed By: #### L 500.4050, L100.0100, L501.9520 ####[facility] [address] [place], [address] Urea nitrogen [Mass/Vol] 16 mg/dL Normal 7-18 [facility] Comment on above: Performed By: #### L 500.4050, L100.0100, L501.9520 ####[facility] [address] [place], [address] Eosinophil percentageOrdered By: Hung Saldana on 06-12-2024 Eosinophils/100 WBC (Bld) 1.0 % 0-5 [facility] Erythrocyte distribution wid th ratioOrdered By: Hung Saldana on 06-12-2024 Erythrocyte distribution width (RBC) [Ratio] 12.2 % 11.6-14.6 [facility] Erythrocyte distribution wid th standard deviationOrdered By: Hung Saldana on 06-12-2024 Erythrocyte distribution width (RBC) [Entitic vol] 40.1 fL 35.1-43.9 [facility] Estimated glomerular filtrat ion rate (GFR) AmericanOrdered By: Hung Saldana on 06-12-2024 Estimated GFR (MDRD) Amer 71 mL/min >60 [facility] Comment on above: GFR Calc Glomerular filtration rate ( GFR) estimationOrdered By: Hung Saldana on 06-12-2024 Estimated GFR (MDRD) Non-Af Amer 59 mL/min Low >60 [facility] Comment on above: Non- GFR Calc Glucose measurementOrdered B y: Hung Saldana on 06-12-2024 Glucose [Mass/Vol] 155 mg/dL High 74-106 [facility] Comment on above: Fasting Glucose resu lt greater than or equal to 126 mg/dL suggests DIABETES MELLITUS per A.D.A. criteria. Hematocrit Auto (Bld) [Volum e fraction]Ordered By: Hung Saldana on 06-12-2024 Hematocrit (Bld) [Volume fraction] 45.5 % 37-47 [facility] Hemoglobin measurementOrdere d By: Hung Saldana on 06-12-2024 Hemoglobin (Bld) [Mass/Vol] 15.5 g/dL High 12.0-15.0 [facility] Immature granulocytes/100 WB C Auto (Bld)Ordered By: Hung Saldana on 06-12-2024 Immature granulocytes/100 WBC (Bld) 0.300 % 0.0-0.9 [facility] Comment on above: IG% - Immature Granu locytes (promyelocytes, myelocytes and metamyelocytes) > 1% indicates that a LEFT SHIFT is Present. Laboratory - Chemistry and C hemistry - challengeOrdered By: Hung Saldana on 06-12-2024 AST [Catalytic activity/Vol] 18 U/L 15-37 [facility] Lymphocytes Auto (Unsp spec) [#/Vol]Ordered By: Hung Saldana on 06-12-2024 Lymphocytes (Bld) [#/Vol] 1.50 10*3/uL 0.83-4.51 [facility] Lymphocytes/100 WBC Auto (Un sp spec)Ordered By: Hung Saldana on 06-12-2024 Lymphocytes/100 WBC (Bld) 25.7 % 19-41 [facility] MCV (mean corpuscular volume ) determinationOrdered By: Hung Saldana on 06-12-2024 MCV (RBC) [Entitic vol] 89.6 fL 81-99 [facility] Mean corpuscular hemoglobin (MCH) determinationOrdered By: Hung Saldana on 06-12-2024 MCH (RBC) [Entitic mass] 30.5 pg 27.0-32.0 [facility] Mean corpuscular hemoglobin concentration (MCHC) determinationOrdered By: Hung Saldana on 06-12-2024 MCHC (RBC) [Mass/Vol] 34.1 g/dL 32-36 [facility] Mean platelet volume determi nationOrdered By: Hung Saldana on 06-12-2024 Platelet mean volume (Bld) [Entitic vol] 10.8 fL 6.2-12.0 [facility] Monocyte percentageOrdered B y: Hung Saldana on 06-12-2024 Monocytes/100 WBC (Bld) 9.8 % 0-10 [facility] Neutrophil percentageOrdered By: Hung Saldana on 06-12-2024 Neutrophils/100 WBC (Bld) 62.7 % 47-70 [facility] Nucleated red blood cell per centageOrdered By: Hung Saldana on 06-12-2024 Nucleated RBC/100 WBC (Bld) [Ratio] 0 % 0-5 [facility] Platelet countOrdered By: Gerardo Saldana on 06-12-2024 Platelets (Bld) [#/Vol] 259 10*3/uL 150-450 [facility] Potassium measurementOrdered By: Hung Saldana on 06-12-2024 Potassium [Moles/Vol] 3.9 mmol/L 3.5-5.1 [facility] RBC Auto (Bld) [#/Vol]Ordere d By: Hung Saldana on 06-12-2024 RBC (Bld) [#/Vol] 5.08 10*6/uL 4.2-5.4 [facility] Serum anion gap measurementO rdered By: Hung Saldana on 06-12-2024 Anion gap [Moles/Vol] 5 mmol/L 5-15 [facility] Serum globulin measurementOr dered By: Hung Saldana on 06-12-2024 Globulin (S) [Mass/Vol] 3.1 g/dL 2.2-4.2 [facility] Serum or plasma alanine santos otransferase (ALT) measurementOrdered By: Hung Saldana on 06-12-2024 ALT [Catalytic activity/Vol] 19 U/L 13-56 [facility] Serum or plasma albumin letty urement (mass/volume)Ordered By: Hung Saldana on 06-12-2024 Albumin [Mass/Vol] 3.7 g/dL 3.2-5.0 [facility] Serum or plasma alkaline estee sphatase measurementOrdered By: Hung Saldana on 06-12-2024 ALP [Catalytic activity/Vol] 89 U/L 45-117 [facility] Serum or plasma calcium letty urement (mass/volume)Ordered By: Hung Saldana on 06-12-2024 Calcium [Mass/Vol] 9.8 mg/dL 8.5-10.1 [facility] Serum or plasma creatinine m easurement (mass/volume)Ordered By: Hung Saldana on 06-12-2024 Creatinine [Mass/Vol] 0.99 mg/dL 0.55-1.02 [facility] Comment on above: The validity of the calculated GFR & GFRAA in patients over 70 years has not been determined. Clinical correlation is essential. Serum or plasma urea nitroge n measurement (mass/volume)Ordered By: Hung Saldana on 06-12-2024 Urea nitrogen [Mass/Vol] 16 mg/dL 7-18 [facility] Sodium levelOrdered By: Hung Saldana on 06-12-2024 Sodium [Moles/Vol] 140 mmol/L 136-145 [facility] TSH QnOrdered By: Hung estrada on 06-12-2024 Thyroid Stimulating Hormone (TSH) 1.330 uIU/mL 0.358-3.740 [facility] Thyroid Stim Hormone (TSH)on 06-12-2024 TSH 1.330 uIU/mL Normal 0.358-3.740 [facility] Comment on above: Performed By: #### P SMA. #### [facility] [place], [address] Total proteinOrdered By: Radha Saldana on 06-12-2024 Protein [Mass/Vol] 6.8 g/dL 6.4-8.2 [facility] White blood cell (WBC) count Ordered By: Hung Saldana on 06-12-2024 WBC (Bld) [#/Vol] 5.8 10*3/uL 4.4-11.0 [facility] Enrollment Management Vice President Office Visit Reporton 05-14-2024 Enrollment Management Vice President Office Visit Report [facility], [address] [place] [address] OFFICE VISIT Date of Service: 05/14/24 MR#: [id number] Acct: [id number] Name: LEANDRA OCAMPO Rep #: [id number] : 1955 Provider: TAYO Velazco Age/Sex: 68/F Location: [facility] [place] Status: Signed Intake Vital Signs 01/24/24 07:18 04/18/24 09:50 05/14/24 13:28 05/14/24 13:47 Height 5 ft 4 ft 11 in 5 ft 4 ft 11 in Weight: 130 lb BMI 25.4 BP 142/85 H Intake Visit Reasons: referral from [facility] Chief Complaint: annual Nut Threader Required: No Is patient in pain?: No Allergies minocycline Allergy (Verified 05/14/24 15:03) Other azithromycin (From Zithromax Z-Victor M) Adverse Reaction (Mild, Verified 05/14/24 15:03) Upset Stomach Medications ???Medication ???Instructions ???Recorded ???Confirmed ???Type metronidazole 0.75 % topical cream 1 applic topical BID 07/13/23 05/14/24 History cholecalciferol (vitamin D3) 50 50 mcg PO DAILY 01/07/24 05/14/24 History mcg (2,000 unit) capsule omeprazole 20 mg capsule,delayed 20 mg PO DAILY #30 caps 01/07/24 05/14/24 Rx release calcium carbonate 600 mg PO DAILY 01/21/24 05/14/24 History sulfacetamide sodium-sulfur 8 %-4 1 applic topical DAILY 01/21/24 05/14/24 History % topical suspension alendronate 70 mg tablet 70 mg PO MILLER 04/07/24 05/14/24 History prednisolone acetate 1 % eye 1 drp ophthalmic (eye) TID 05/14/24 05/14/24 History drops,suspension Is last menstrual period known: No Post menopausal: Yes Patient : No Control Method: none PFSH Medical History Screening mammogram for breast cancer Hx of sebaceous cyst Abnormal ultrasound of breast Breast cyst Osteoporosis Wears glasses Depression Anxiety Post-menopausal Arthritis Injury of head and neck Injury of back Syncope Gastric reflux Non-smoker History of irregular heartbeat Surgical History (Updated 05/14/24 @ 15:07 by Sharon Velarde) History of cataract extraction S/P breast biopsy, left Hx of breast biopsy Hx of colonoscopy H/O tubal ligation H/O removal of cyst H/O dilation and curettage Family History Daughter Asthma Mother Arthritis Osteoporosis Skin cancer CVA (cerebral vascular accident) Father Bladder cancer Kidney disease Son Diabetes Grandmother Diabetes Asthma Grandfather CVA (cerebral vascular accident) Arthritis Aunt Breast cancer Social History Smoking Status: Never smoker alcohol intake: never substance use type: does not use HPI referral from [facility] Details: LEANDRA OCAMPO is a 68 year old who presents for annual exam. She was referred to us from [facility] to establish after finding a breast lump. She was seen by gen surgery (Dr. Sharma) who removed and did biopsy showing atypical ductal hyperplasia. Recommended annual mammogram and breast exam as well as referral to oncology for possible anti-estrogen therapy. She is post menopausal. She reports she has never experienced post menopausal bleeding. Last PAP: 2018; normal. History of abnormal PAP: none Last mammogram: 11/2023; see above History of abnormal mammogram: see HPI Colon cancer screenin01/2024 colonoscopy; with polyp; recommended 1 year follow up colonoscopy. Other preventative health care screenings: Dr. Joe Taylor Constitutional: Denies chills, fatigue, fever(s), headache(s) or weight loss Eyes Eyes: Denies change in vision ENT ENT: Denies dizziness Resp Resp: Denies cough GI GI: Denies abdominal pain, constipation or nausea : Denies difficulty voiding, dysuria, hematuria, nipple discharge, pelvic pain, prolapse symptoms, urinary incontinence, vaginal discharge, vaginal dryness, vaginal odor or vaginal pruritus Skin Skin/Breast: Denies alopecia, rash, breast mass, breast pain, breast skin changes or nipple discharge Neuro Neuro: Denies dizziness Psych Psych: Denies anxiety or depression Endo Endo: Denies cold intolerance, excessive sweating or heat intolerance Exam Const General: cooperative, healthy appearing, comfortable, no acute distress, well groomed and well hydrated Nutritional Appearance: well nourished Orientation: alert, awake and oriented x3 HENMT Head: normal to inspection and normocephalic Ears: hearing grossly normal bilaterally and external ears normal Nose: external nose normal Face and sinus: normal facial exam Eyes General: appearance normal, both eyes and all related structures Neck Neck: normal visual inspection, full ROM and no lymphadenopathy Thyroid: thyroid normal Chest Chest palpation inspection: normal inspection of the chest Breast (more content not included)... Normal [facility] Oncology Visit Reporton Oncology Visit Report [facility] [address] [place] [id number] OFFICE VISIT Date of Service: 05/14/24 1500 MR#: [id number] Acct: [id number] Name: LEANDRA OCAMPO Rep #: [id number] : 1955 From: Rosana Goldsmith MD Age/Sex: 68/F [place] [facility] [place]: Signed HPI Subjective Date of Service 05/14/24 Chief Complaint Breast disease History of Present Illness 15-year-old female with no history of breast cancer or prior breast biopsies and no first-degree relatives with breast cancer who on routine annual screening mammography in January 2024 showed an abnormality in the left breast. Ultrasound confirmed an 8 mm cystic lesion but MRI showed an irregular mass measuring 1.8 cm. A second look ultrasound in February 2024 was suspicious and prompted a biopsy. March 12, 2024 Left breast mass at 11o???clock, core biopsy: Detached fragments of atypical glandular mucosa. Lobular involution, fibrosis and mild duct ectasia. April 18, 2024 Left breast tissue, excisional biopsy: Foci of atypical ductal hyperplasia (ADH) in the background of usual ductal hyperplasia (UDH). Sclerosing adenosis. Fibrocystic changes. Calcifications. Fibroadenomatoid change. Biopsy site changes. [facility] Medical History (Updated 05/14/24 @ 16:[address] Rosana Goldsmith MD) Screening mammogram for breast cancer Hx of sebaceous cyst Abnormal ultrasound of breast Breast cyst Osteoporosis Wears glasses Depression Anxiety Post-menopausal Arthritis Injury of head and neck Injury of back Syncope Gastric reflux Non-smoker History of irregular heartbeat Surgical History (Updated 05/14/24 @ 15:07 by Sharon Velarde) History of cataract extraction S/P breast biopsy, left Hx of breast biopsy Hx of colonoscopy H/O tubal ligation H/O removal of cyst H/O dilation and curettage Family History Daughter Asthma Mother Arthritis Osteoporosis Skin cancer CVA (cerebral vascular accident) Father Bladder cancer Kidney disease Son Diabetes Grandmother Diabetes Asthma Grandfather CVA (cerebral vascular accident) Arthritis Aunt Breast cancer Social History Smoking Status: Never smoker alcohol intake: never substance use type: does not use ROS Constitutional Constitutional: Reports systems reviewed and no addt'l complaints, except as documented ENT HEENT: Reports systems reviewed and no addt'l complaints, except as documented Cardiovascular Cardiovascular: Reports systems reviewed and no addt'l complaints, except as documented Respiratory/Chest Respiratory/Chest: Reports systems reviewed and no addt'l complaints, except as documented; Denies breast mass Intake Vital Signs 04/18/24 09:50 05/14/24 13:47 05/14/24 15:01 05/14/24 15:07 Height 4 ft 11 in 4 ft 11 in 4 ft 11 in 4 ft 11 in Weight: 58.684 kg BMI 26.1 BP 154/85 H Blood Pressure Location Lt brachial Position Sitting Respiration 16 Pulse 60 Pulse Source Monitor Temp 97.5 F L Temperature Source Temporal Artery Pulse Oximetry (%) 97 Oxygen Delivery Method room air Intake Is patient in pain?: No Allergies minocycline Allergy (Verified 05/14/24 15:03) Other azithromycin (From Zithromax Z-Victor M) Adverse Reaction (Mild, Verified 05/14/24 15:03) Upset Stomach Medications ???Medication ???Instructions ???Recorded ???Confirmed ???Type metronidazole 0.75 % topical cream 1 applic topical BID 07/13/23 05/14/24 History cholecalciferol (vitamin D3) 50 50 mcg PO DAILY 01/07/24 05/14/24 History mcg (2,000 unit) capsule omeprazole 20 mg capsule,delayed 20 mg PO DAILY #30 caps 01/07/24 05/14/24 Rx release calcium carbonate 600 mg PO DAILY 01/21/24 05/14/24 History sulfacetamide sodium-sulfur 8 %-4 1 applic topical DAILY 01/21/24 05/14/24 History % topical suspension alendronate 70 mg tablet 70 mg PO MILLER 04/07/24 05/14/24 History prednisolone acetate 1 % eye 1 drp ophthalmic (eye) TID 05/14/24 05/14/24 History drops,suspension Have you fallen in the past year?: No Central Venous Access Central Venous Access: No Exam Physical Exam Narrative ECOG 0 Const alert, oriented x3 and no apparent distress Coding Level of Care Code Off vis,new,level 4 Exam Problem Focused Diagnoses Atypical ductal hyperplasia of left breast N60.92 Assessment and Plan Assessment and Plan (1) Atypical ductal hyperplasia of left breast: Status: Acute Plan 68-year-old female with atypical ductal hyperplasia of the left breast, a marker for relatively increased risk for developing breast cancer in either breast. No personal or first-degree family history of breast cancer. Based on her history had a (more content not included)... Normal [facility] Surgery Visit Reporton 05-06 Surgery Visit Report [facility] [address] [place] [address] OFFICE VISIT Date of Service: 05/06/24 MR#: [id number] Acct: [id number] Name: LEANDRA OCAMPO Rep #: [id number] : 1955 Provider: Dr. Guido olvera MD Age/Sex: 68/F Location: [facility] Status: Signed Intake Vital Signs 04/18/24 09:50 Height 4 ft 11 in Intake Visit Reasons: EXCISION OF BREAST MASS DOS 11/8 Chief Complaint: f/u excisional biopsy Nut Threader Required: No Is patient in pain?: No Allergies minocycline Allergy (Verified 05/06/24 12:48) Other azithromycin (From Zithromax Z-Victor M) Adverse Reaction (Mild, Verified 05/06/24 12:48) Upset Stomach Medications ???Medication ???Instructions ???Recorded ???Confirmed ???Type metronidazole 0.75 % topical cream 1 applic topical BID 07/13/23 05/06/24 History cholecalciferol (vitamin D3) 50 50 mcg PO DAILY 01/07/24 05/06/24 History mcg (2,000 unit) capsule omeprazole 20 mg capsule,delayed 20 mg PO DAILY #30 caps 01/07/24 05/06/24 Rx release calcium carbonate 600 mg PO DAILY 01/21/24 05/06/24 History sulfacetamide sodium-sulfur 8 %-4 1 applic topical DAILY 01/21/24 05/06/24 History % topical suspension alendronate 70 mg tablet 70 mg PO MILLER 04/07/24 05/06/24 History Have you fallen in the past year?: No Subjective Details: Patient presents following wire localized left breast excisional biopsy on 04/18/2024. She is actually notified via telephone about the results of her biopsy ahead of schedule because she had called in about being able to pursue her previously???scheduled for cataract surgery. She presents today's visit with her and daughter. Since hospital discharge they have been doing well. They report minimal postoperative pain. They have no wound concerns. Objective Details: Constitutional: Anxious but cooperative Breast: Left breast biopsy site remains covered with Dermabond but there is no erythema and the incision edges remain well apposed. There is minimal fluctuance and patient denies tenderness with palpation. (I also examined patient's left axilla where I previously excised a epidermal inclusion cyst and this also is well-healing) Coding Level of Care Code Global Post Op Diagnoses Atypical ductal hyperplasia of left breast N60.92 [facility] Medical History (Updated 05/06/24 @ 19:[address] Guido Sharma MD) Screening mammogram for breast cancer Hx of sebaceous cyst Abnormal ultrasound of breast Breast cyst Osteoporosis Wears glasses Depression Anxiety Post-menopausal Arthritis Injury of head and neck Injury of back Syncope Gastric reflux Non-smoker History of irregular heartbeat Surgical History (Updated 05/06/24 @ 12:49 by Lesli Alejandro) S/P breast biopsy, left Hx of breast biopsy Hx of colonoscopy H/O tubal ligation H/O removal of cyst H/O dilation and curettage Family History Daughter Asthma Mother Arthritis Osteoporosis Skin cancer CVA (cerebral vascular accident) Father Bladder cancer Kidney disease Son Diabetes Social History Smoking Status: Never smoker alcohol intake: never substance use type: does not use Assessment and Plan (No Qualifiers) Assessment and Plan (1) Atypical ductal hyperplasia of left breast: Status: Acute Comment: Patient is 68-year-old female now status post both ultrasound???guided core needle biopsy and wire???localized excisional breast biopsy showing evidence of atypical ductal hyperplasia. She has healed well following her biopsy. I had proceeded with surgical biopsy given the approximately 20% rate of upgrading to a cancerous lesion. I was pleased to report to Mrs. Ocampo and her family that her pathology remained consistent with atypical ductal hyperplasia. I informed them that this is a marker of risk for breast cancer rather than a true precursor lesion. I also shared that this risk is extended to both breasts. With this risk I recommended that she remain committed to regular breast cancer screening but also introduced the topic of possible chemoprevention with estrogen romina therapy. Patient and her family had a number of questions related to what relative risk reduction which may confer. I extrapolated from what we know about invasive ductal breast cancer but suggested that many of these questions be deferred to a potential meeting with oncology. Patient and her family were ultimately receptive of such a referral. Plan: ??? Referral to oncology for consideration of estrogen blockers ??? Repeat mammogram in 1 year with clinical breast exam with me to follow 05/06/241928 Date Guido Sharma MD (more content not included)... Normal [facility] Breast Biopsy Specimenon Breast Biopsy Specimen [facility] Imaging Services [address] [place] [address] Breast Biopsy Specimen MR#: [id number] Acct: [id number] Name: LEANDRA OCAMPO Rep #: [id number] : 1955 F 68 From: Rah duran MD PCP: Dr. Shayne Diaz MD Status: [facility] Study: Breast Biopsy Specimen Date of Exam: 04/18/24 Exam# [id number] Ordering Dr: Guido Sharma MD 2:[id number] SURGICAL BREAST SPECIMEN RADIOGRAPH CLINICAL: Document presence of tissue clip marker in biopsy specimen. FINDINGS: Specimen shows presence of tissue clip marker. Electronically Signed: Rah Kenney MD at 12:19 EST Reading Location ID and State: [facility] [place] , Service support , BI/Breast Biopsy Specimen IMPRESSION: undefined CC: Dr. Shayne Diaz MD; Dr. Guido Sharma MD Inspector Health Care Facilities: Signed Normal [facility] Discharge Instructionon Discharge Instruction [facility] Medical Records Department [address] [place] [address] Instructions for Home/Discharge Instructions 04/18/24 1254 MR#: [id number] Acct: [id number] Name: LEANDRA OCAMPO Rep #: [id number] : 1955 68 From: Guido Sharma MD PCP: Dr. Shayne Diaz MD Status:[facility] Discharge Instructions Diet Discharge Diet: No restrictions Activity Discharge Activity: May Drive (No driving while using narcotic pain medication) May shower in (days): 2 Ice area for (Minutes): 20 Lifting Restrictions: Limit lifting with left upper extremity to no more than 5 pounds Dressing / Incision Call your doctor if your incision/area has: Continuous Slow Oozing, Sudden Increased Bleeding, Increased Pain/ Swelling, Increased Redness, Foul Smelling Discharge and Swelling at the incision site Call your doctor if you observe: Fever of 101 or Higher Suture Line Care: Avoid Pulling/Pushing Remove Dressing in: 2 days Cleanse incision/area with: Soap Water Additional Dressing/Incision Instructions:: Please leave Steri-Strips intact until they fall off spontaneously or are taken off at your follow-up visit Follow Up Care Please Follow Up With: Guido Sharma MD When: 10-14 days postop Test Results: Test results from this visit will be discussed in further detail at your follow-up appointment, if applicable. Discharge Plan Admission Primary Reason for Your Visit: Left breast biopsy Attending Provider: Guido Sharma Primary Care Provider: Shayne Diaz Instructions Print Language: Hungarian Discharge Orders/Prescriptions Prescriptions: Continued metronidazole 0.75 % cream 1 applic topical BID cholecalciferol (vitamin D3) 50 mcg (2,000 unit) capsule 50 mcg PO DAILY omeprazole 20 mg capsule,delayed release(DR/EC) 20 mg PO DAILY Qty: 30 3RF calcium carbonate 600 mg calcium (1,500 mg) tablet 600 mg PO DAILY sulfacetamide sodium-sulfur 8-4 % suspension 1 applic topical DAILY alendronate 70 mg tablet 70 mg PO MILLER Referrals / Follow Up: Shayne Diaz MD [Primary Care Provider] - Disposition Disposition (needs filled in before D/C Order can be placed): Home, Self Care 04/18/24 3434 Guido Sharma MD CC: Dr. Shayne Diaz MD Signed Normal [facility] E-CAD (initial)on 04-18-2024 E-CAD (initial) ------- Patient Age/Sex Location Account Attending Physician LEANDRA OCAMPO 68/[place] [facility] [id number]. Guido Sharma MD Specimen: [id number] Received: 04/24/24 Status: HEATHER Aldrich Num: [id number] Spec Type: IMMUNO Subm Dr: Dr. Guido Sharma MD PHYSICIAN INSTITUTION [place] [address] SPECIMEN INFORMATION: Tissue Source: Left breast tissue Clinical Info: Sebaceous cyst of left axilla, left breast mass Specimen Number: [id number] CPT code: 84657,03147f1 METHODOLOGY: Deparaffinized sections of prefer/formalin-fixed tissue or PAP/DQ stained slides are incubated with monoclonal/polyclonal antibodies/oligonucleotide probes. Localization is made via biotin free immunoperoxidase method. Appropriate controls are performed and reacted as expected. Results on target cell population are indicated in the following table: RESULTS: ANTIBODY / CLONE RESULT E-Cad (ECH-6) positive CK8 (53ccdjO55) positive Calponin-1 (JH882D) positive (in myoepithelial cells) P40 (BC28) positive (in myoepithelial cells) These tests were developed and their performance characteristics determined by [facility]. They may not have been cleared or approved by the U.S. Food and Drug Administration. The FDA has determined that such clearance or approval is not necessary. The above immunohistochemical/dualISH markers are ordered and reviewed by the Pathologist. INTERPRETATION: Left breast, excision: Foci of atypical ductal hyperplasia. Case has been reviewed in consultation with Dr. Gray who concurs with the above diagnosis. IDC:ANTONIO PENA.mr 04/30/2024 Signed (signature on file) Dr. Larry Vazquez MD 05/01/2422 Normal [facility] Comment on above: Performed By: #### P ECAD #### [facility] [address] [place], [place], [address] MR/POSTOP.Fernando 04-18-2024 MR/POSTOP.[facility] Medical Records Department [address] [place] [address] Anesthesia Postop Eval I 04/18/24 1324 MR#: [id number] Acct: [id number] Name: LEANDRA OCAMPO Rep #: [id number] : 1955 68 From: Avila Harris CRNA PCP: Dr. Shayne Diaz MD Status:REG SDC Y Race: C Location: [place] [address] Anesthesia: Postop Eval I Current Vital Signs Temperature: 98.4 F Pulse Rate: 84 Blood Pressure: 126/78 Respiratory Rate: 16 Pulse Ox: 98 Oxygen Delivery Method: Room Air Assessment Airway patent: Yes Spontaneous unlabored respirations: Yes Mental status: Awake and Calm nausea: No Vomiting: No Anesthesia Complication: No Fluid Hydration Crystalloid volume administer (ml): 1,000 Total IV fluid infused: 1,000 Progress Note Anesthesia document: Postop Eval 1 completed: Yes 04/18/24 1325 Date Avila Harris ROOM ATTENDANTS Cosigner Signature: Date CC: Signed Normal [facility] MR/[id number] 04-18-2024 MR/POSTOPAN2 [facility] Medical Records Department [address] [place] [address] Anesthesia Postop Eval II 04/18/241716 MR#: [id number] Acct: [id number] Name: LEANDRA OCAMPO Rep #: [id number] : 1955 68 From: Rene Teixeira MD PCP: Dr. Shayne Diaz MD Status:DEP [facility] [place] Race: C [place] [facility] Anesthesia Postop Eval I Sum Postop Eval Completion status Anesthesia document: Postop Eval 1 completed: Yes Anesthesia Postop Eval I Summary Anesthesia Postop Eval I Summary: Anesthesia Postop Eval I: Assessment Summary Airway patent Yes 04/18/24 13:25 ROOM [email or web address].JBLOU Spontaneous unlabored Yes 04/18/24 13:25 ROOM ATTENDANTS.JBLOU respirations Mental status Awake,Calm 04/18/24 13:25 ROOM ATTENDANTS.JBLOU nausea No 04/18/24 13:25 ROOM ATTENDANTS.JBLOU Vomiting No 04/18/24 13:25 ROOM ATTENDANTS.JBLOU Anesthesia Postop Eval I: Fluid Summary Crystalloid volume administer 1,000 04/18/24 13:25 ROOM ATTENDANTS.JBLOU (ml) Colloids volume administered ( ml) Blood Product volume administered (ml) Total IV fluid infused 1,000 04/18/24 13:25 ROOM ATTENDANTS.JBLOU Anesthesia Postop Eval I: Summary Notes Anesthesia Complication No 04/18/24 13:25 ROOM ATTENDANTS.JBLOU Anesthesia Complication Comment: Post-operative progress note Anesthesia: Postop Eval II Evaluation Mental status: Awake and Calm Pain Level: 1 nausea: No Vomiting: No Complications Anesthesia Complication: No 04/18/241716 Date Rene Teixeira MD Cosigner Signature: Date CC: Signed Normal [facility] Operative Reporton 4 Operative Report [facility] Medical Records Department [address] [place] [address] Operative Report 04/18/24 1219 MR#: [id number] Acct: [id number] Name: LEANDRA OCAMPO Rep #: [id number] : 1955 68 From: Guido Sharma MD PCP: Dr. Shayne Diaz MD Status:[facility] Location[place] [facility] Operative Report (Standard) Operative Information Surgery/Procedure Performed: Ultrasound-guided excisional left breast biopsy Surgeon: Guido Sharma Date of Procedure: 04/18/24 Procedure Start Time: :17 Procedure Stop Time: 12:17 Pre-Operative Diagnosis: Suspicious left breast mass Post-Operative Diagnosis: Same Select all DRAINS/GRAFTS/IMPLANTS that apply: None Type of Anesthesia: MAC/Supplemental Estimated Blood Loss: 10 Specimen collected: Yes Description of specimen(s) removed: Left breast biopsy Description of surgery: After appropriate identification in the preoperative holding area, the patient was brought to the operating room where her preoperative antibiotics were completed. She was positioned supine on the operating room table with her arms out and underwent induction with anesthesia. An LMA airway was placed. The patient's mass and biopsy clip was localized with ultrasound and a Kopan needle was inserted just deep to this point under ultrasound guidance after cleansing the skin with an alcohol swab. A wire was then trimmed short and both the wire and the remainder of the left breast were prepped and draped in usual sterile fashion. Formal timeout was conducted to confirm both patient and procedure. Local anesthetic was instilled (a total of 10 mL quarter percent bupivacaine plain was used) in the appointed location for the incision and approximately 2.5 to 3 cm curvilinear periareolar incision was created with the scalpel. This was deepened with the use of electrocautery through Karan's fascia. Limited sharp and blunt dissection were used to free the skin from the underlying breast tissue as a subcutaneously dissected towards the patient's wire. Then the wire was pulled into the incision and the breast tissue that it entered was gathered using a 2-0 silk suture in a [id number] fashion. The suture was then used to apply traction to the tissue and facilitate further dissection. Then the mass was dissected free of the surrounding breast tissue with a combination of blunt dissection and electrocautery???taking great care to avoid thermal injury to the skin. We encountered points of bleeding superior and inferiorly on the medial aspect of the dissection that were addressed with selective electrocautery. The circumferential dissection was then taken deeply all the way to the patient's chest wall. As the specimen was being removed from the chest wall I looked into the surgical cavity and identified the marking clip and the base of the cavity. This was set aside to go with the rest of our specimen to mammography. The mass was then completely excised from the cavity and orientation maintained until we were able to place orientation marking stitches designating short superior long lateral with a 2-0 silk. The surgical cavity was inspected for hemostasis and selective electrocautery was used to achieve it. The cavity was irrigated with sterile water and all loose breast tissue was removed from the cavity. 2 medium sized titanium clips were used to ariella the posterior aspect of the cavity cavity was then closed at a deep dermal level with a running 3-0 Vicryl. Then the skin was closed in a subcuticular fashion with 4-0 Monocryl. Dermabond was applied as a dressing. Surgical Findings: ??? Localization clip found at roughly 1 cm depth within a hypoechoic mass ??? Localization clip from the inferior boundary of specimen but submitted with remainder of tissue (inferior boundary was patient's chest wall and the fascia of the pectoralis major) ??? Mild amount of breast tissue thickening palpated the 12 o'clock position posterior margin [employer] education administrator: Yes Associate Sales: Patti Mancera Tasks completed by service center assistant: Opening closing and Retracting Complications Complications: No Admit VTE Documentation VTE Mechan Device Prophylaxis: SCD's Procedures Integumentary [id number]: Other Procedure See Report (CPT 29538 excisional breast biopsy) 04/18/24 1511 Cosigner Signature (if applicable): CC: Dr. Shayne Diaz MD; Dr. Guido Sharma MD Signed Normal [facility] Surgery Specimen Level Lucia 04-18-2024 Surgery Specimen Level IV Patient Age/Sex Location Account Attending Physician LEANDRA OCAMPO 68/F [facility] [id number] Dr. Guido Sharma MD Specimen: [id number] Received: 04/18/24 Status: HEATHER Elinor Num: [id number] Spec Type: BREAST BX Subm Dr: Dr. Guido Sharma MD HEADER OPERATION: Ultrasound guided left breast mass excision PRE-OP DIAGNOSIS: Sebaceous cyst of left axilla, left breast mass TISSUE SUBMITTED: Left breast tissue * short stitch- superior, long stitch- lateral* MICROSCOPIC DIAGNOSIS Left breast tissue, excisional biopsy: Foci of atypical ductal hyperplasia (ADH) in the background of usual ductal hyperplasia (UDH). Sclerosing adenosis. Fibrocystic changes. Calcifications. Fibroadenomatoid change. Biopsy site changes. SJ.mr 04/30/2024 COMMENT The specimen is sent to [employer] [employer] for expert opinion, reviewed by Dr. Ruiz and the above diagnosis is rendered. The complete report is viewable in the patient's EMR. Immunohistochemistry ([id number]) supports the above diagnosis. Please also make reference to previous specimen [id number], left breast mass at 11 o'clock, core biopsy with diagnosis of detached fragments of atypical glandular mucosa. Case has been reviewed in consultation with Dr. Gray who concurs with the above diagnosis. IDC:AM MICROSCOPIC DESCRIPTION Slides are reviewed. GROSS DESCRIPTION Received in fixative is one container labeled with the patient's name and designated Left breast tissue. The specimen consists of a piece of fibroadipose tissue with needle localization measuring 3.5 x 1.5 x 3.0cm. The specimen is inked as follows: anterior - yellow, posterior - black, superior - blue, inferior - green, medial - red and lateral - orange. This specimen is serially sectioned and reveal focal fibrous areas. No obvious mass lesion is identified. The entire specimen is submitted in ten cassettes. Cassette 1 contains the most posterior portion, cassette 10 contains the most anterior portion. Sections are submitted after additional fixation. BECKY. 04/21/2024 TC:5 CPT:08962 Patient Age/Sex Location Account Attending Physician LEANDRA OCAMPO 68/F [facility] [id number] Dr. Guido Sharma MD Signed (signature on file) Dr. Larry Vazquez MD 05/01/24 0920 Normal [facility] Comment on above: Performed By: #### P SABRINA ####[facility] [address] [place], [place], [id number] Surgery Specimen Level Lucia 04-01-2024 Surgery Specimen Level IV Patient Age/Sex Location Account Attending Physician LEANDRA OCAMPO 68/F [facility] [id number] Dr. Guido Sharma MD Specimen: [id number] Received: 04/01/24 Status: HEATHER Aldrich Num: [id number] Spec Type: AX NODE BX Subm Dr: Dr. Guido Sharma MD HEADER OPERATION: Excision of left axillary mass PRE-OP DIAGNOSIS: Left axillary mass TISSUE SUBMITTED: Left axillary mass MICROSCOPIC DIAGNOSIS Left axillary mass, biopsy: Fragments of epidermal inclusion cyst. AM. 04/02/2024 MICROSCOPIC DESCRIPTION Slides are reviewed. GROSS DESCRIPTION Received in fixative is one container labeled with the patient's name and designated Left axillary mass. The specimen consists of multiple fragments of pink-white soft tissue that in aggregate measure 1.5 x 2.0 x 0.3 cm. The specimen is totally submitted in one cassette. . 04/01/2024 TC:5 CPT:30072 Patient Age/Sex Location Account Attending Physician LEANDRA OCAMPO 68/F [facility] [id number] Dr. Guido Sharma MD Signed (signature on file) Dr. Tommy Gray DO 04/02/24 1143 Normal [facility] Comment on above: Performed By: #### P SUIV #### [facility] [address] [place], [place] [address], [address] Surgery Visit Reporton 04-01 Surgery Visit Report [facility] [address] [place] [address] [address] [place] [address] OFFICE VISIT Date of Service: 04/01/24 MR#: [id number] Acct: [id number] Name: LEANDRA OCAMPO Rep #: [id number] : 1955 Provider: Dr. Guido olvera MD Age/Sex: 68/F Location: [facility] Status: Signed Intake Vital Signs 01/24/24 07:18 Height 5 ft Intake Visit Reasons: Excision of cyst from under left arm Chief Complaint: excision of cyst from under left arm Accompanied by: Is patient in pain?: No Allergies minocycline Allergy (Verified 04/01/24 08:02) Other azithromycin (From Zithromax Z-Victor M) Adverse Reaction (Mild, Verified 04/01/24 08:02) Upset Stomach Medications ???Medication ???Instructions ???Recorded ???Confirmed ???Type metronidazole 0.75 % topical cream 1 applic topical BID 07/13/23 04/01/24 History cholecalciferol (vitamin D3) 50 50 mcg PO DAILY 01/07/24 04/01/24 History mcg (2,000 unit) capsule omeprazole 20 mg capsule,delayed 20 mg PO DAILY #30 caps 01/07/24 04/01/24 Rx release calcium carbonate 600 mg PO DAILY 01/21/24 04/01/24 History sulfacetamide sodium-sulfur 8 %-4 1 applic topical DAILY 01/21/24 04/01/24 History % topical suspension Have you fallen in the past year?: No PFSH Medical History Abnormal ultrasound of breast Breast cyst Osteoporosis Wears glasses Depression Anxiety Post-menopausal Arthritis Injury of head and neck Injury of back Syncope Gastric reflux Non-smoker History of irregular heartbeat Surgical History Hx of colonoscopy H/O tubal ligation H/O removal of cyst H/O dilation and curettage Family History Daughter Asthma Mother Arthritis Osteoporosis Skin cancer CVA (cerebral vascular accident) Father Bladder cancer Kidney disease Son Diabetes Social History Smoking Status: Never smoker alcohol intake: never substance use type: does not use HPI HPI HPI: Patient is a 68-year-old female who presents for excision of left axillary mass following ultrasound-guided core needle biopsy of left breast mass on 03/12/2024. Unfortunately this latter biopsy showed some evidence of atypia and pathology has requested additional tissue for purposes of making a definitive diagnosis. Therefore, after relaying patient's pathology report via telephone I recommended to her that we proceed with excisional left breast biopsy of this site as well. She informs me that she is pending cataract surgery, asynchronously, for both eyes in the coming 3 weeks. She wishes to know better how she should prioritize recommendations for the breast biopsy as well as these elective procedures. Concerning her left axillary mass, she denies any new discomfort. ROS General General: Yes weight change (loss- ten pounds ); No appetite, fatigue, colon cancer or breast cancer HEENT HEENT: No difficulty swallowing, eye injury, eye surgery, swollen glands or hoarseness Endo Endocrine: No thyroid disease, diabetes mellitus, thyroid cancer, Hair loss, heat intolerance or cold intolerance Additional Details: thyroid nodules Skin Skin: Yes changing moles; No rash Musc Musculoskeletal: Yes back problems; No arthritis, rheumatoid arthritis, gout or joint pain Additional Details: T6/T9 fracture Cardio Cardiovascular: Yes murmur; No pacemaker, heart disease, atrial fibrillation, high blood pressure, heart attack, heart stent, palpitations, shortness of breat with exertion or chest pain Psych Psychiatric: Yes depression and anxiety; No hearing voices Resp Respiratory: No shortness of breath, No sleep apnea, No cough, No COPD, No asthma, No emphysema and No wheezing Gastro Gastrointestinal: No abdominal pain, No nausea or vomiting, No diarrhea, No constipation, No blood in stool, No acid reflux, Yes hemorrhoids, No ulcers, Yes gallbladder problem and No black,tarry stools Larry Hematologic: No blood thinners, No blood disorders, No bleeding, No anemia and No blood clots Exam Const General: cooperative, comfortable and no acute distress Orientation: alert, awake and oriented x3 Chest Other: Firm, semimobile, superficial cystic lesion within the hairbearing area of the left axilla favoring the left upper arm. There is no surrounding erythema and the area is minimally tender to palpation. Diameter is estimated at 1 cm. Resp Effort Inspection: normal respiratory effort Office Procedures Excision and Linear Repair Procedure performed by: Guido Sharma Informed consent given: Yes Consent signed: Yes Size of lesion (cm): 1 Amount of lidocain (more content not included)... Normal [facility] Procedure Reporton 4 Procedure Report [facility] Medical Records Department [address] [place] [address] Procedure Report 03/12/24 1128 MR#: [id number] Acct: [id number] Name: LEANDRA OCAMPO Rep #: [id number] : 1955 68 From: Guido Sharma MD PCP: Dr. Shayne Diaz MD Status:REG CLI Location: US Procedure Report Date of Procedure: 03/12/24 Procedure: Core needle biopsy of left breast Description: After a detailed discussion regarding the risks and benefits of the biopsy procedure, the patient was positioned supine on the gurney with a bump under her left side. Formal, written consents were obtained prior to positioning. Ultrasound was used to localize the lesion in the upper inner quadrant of the breast (there were in fact 2 areas of interest with a cyst just medial to a more solid mass). Locally 1% lidocaine was infiltrated about the cyst and the mass using ultrasound guidance. I used the instillation of local anesthetic to try to elevate the cyst and the mass away from patient's adjacent chest wall. Once the area was sufficiently anesthetized, a small stab incision was made in the skin and the 10-gauge mammotome core needle device was introduced percutaneously. Ultrasound was used to guide needle aperture underneath suspicious lesion. As the device was advanced through the breast tissue there was significant resistance from patient's moderately dense breast and it appeared that the patient's cyst had ruptured. Once appropriately positioned, the mass was serially sampled with 5 cores which were placed in solution for pathologic processing. A marking clip was then placed under ultrasound guidance within the mass. Pressure was applied until hemostasis was obtained. The skin was cleaned and Steri-Strips were applied over the stab incision for the biopsy procedure. Patient tolerated the procedure with no complications and was directed to mammography for a completion picture. EBL: 2 mL Complications: None Procedures Integumentary 16xxx-193xx: 71045 Bx breast 1st lesion us imag 03/12/24 1132 Cosigner Signature (if applicable): CC: Dr. Shayne Diaz MD; Dr. Guido Sharma MD Signed Normal [facility] SMA (add)on 03-12-2024 SMA (add) ------- Patient Age/Sex Location Account Attending Physician THOMASLEANDRA ESPARZAIL 68/F [id number] Dr. Guido Sharma MD Specimen: [id number] Received: 03/13/24 Status: HEATHER Aldrich Num: [id number] Spec Type: IMMUNO Subm Dr: Dr. Guido Sharma MD PHYSICIAN INSTITUTION [place] [address] SPECIMEN INFORMATION: Tissue Source: Left breast mass Clinical Info: Breast mass, left Specimen Number: [id number] CPT code: 46058,21804b9 METHODOLOGY: Deparaffinized sections of prefer/formalin-fixed tissue or PAP/DQ stained slides are incubated with monoclonal/polyclonal antibodies/oligonucleotide probes. Localization is made via biotin free immunoperoxidase method. Appropriate controls are performed and reacted as expected. Results on target cell population are indicated in the following table: RESULTS: ANTIBODY / CLONE RESULT Calponin-1 (IO021Z) negative Actin (1A4) negative P40 (BC28) positive, rare cells P53 (DO-7) positive, rare cells (wild type pattern) These tests were developed and their performance characteristics determined by [facility]. They may not have been cleared or approved by the U.S. Food and Drug Administration. The FDA has determined that such clearance or approval is not necessary. The above immunohistochemical/dualISH markers are ordered by Dr. Marisela Gray and reviewed by the Pathologist. INTERPRETATION: Left breast, 11o'clock, 2cm from nipple, core biopsy: Detached unoriented fragments of atypical glandular tissue. COMMENT: Further classification of these fragment is not possible. 03/14/2024 Signed (signature on file) Dr. Larry Vazquez MD 03/14/24 1202 Normal [facility] Comment on above: Performed By: #### P [facility]. #### [facility] [place] [address], [address] Surgery Specimen Level Lucia 03-12-2024 Surgery Specimen Level IV Patient Age/Sex Location Account Attending Physician LEANDRA OCAMPO 68/F [id number] Dr. Guido Sharma MD Specimen: [id number] Received: 03/12/24 Status: HEATHER Aldrich Num: [id number] Spec Type: BREAST BX Subm Dr: Dr. Guido Sharma MD HEADER OPERATION: Breast biopsy- Left PRE-OP DIAGNOSIS: Breast mass- Left TISSUE SUBMITTED: Left breast mass 11o'clock, 2cm from nipple Ischemic Time: 1 minute Fixation Time: 9 hours MICROSCOPIC DIAGNOSIS Left breast mass at 11o'clock, core biopsy: Detached fragments of atypical glandular mucosa. Lobular involution, fibrosis and mild duct ectasia. See comment. AM. 03/13/2024 COMMENT The detached fragments of glandular mucosa may represent intraductal hyperplasia or fragments of papilloma. Clinical correlation is suggested. Immunohistochemistry ([id number]) supports the above diagnosis. Case has been reviewed in consultation with Dr. Vazquez who concurs with the above diagnosis. IDC:BECKY MICROSCOPIC DESCRIPTION Slides are reviewed. GROSS DESCRIPTION Received in fixative is one container labeled with the patient's name and designated Left breast 11o'clock, 2cm from nipple. The specimen consists of multiple elongated fragments of shah-yellow fibroadipose tissue measuring in aggregate 2.5 x 1.5 x 0.1cm. The entire specimen is submitted in one cassette. 03/12/2024 TC:? CPT:48144 Patient Age/Sex Location Account Attending Physician LEANDRA OCAMPO 68/F [id number] Dr. Guido Sharma MD Signed (signature on file) Dr. Tommy Gray DO 03/13/24 1247 Normal [facility] Comment on above: Performed By: #### P SUIV #### [facility] [address] [facility] [place], [address] US Breast Biopsy 1st Lesiono n 03-12-2024 US Breast Biopsy 1st Lesion [facility] Imaging Services [address] [place] [address] US Breast Biopsy 1st Lesion MR#: [id number] Acct: [id number] Name: LEANDRA OCAMPO Rep #: [id number] : 1955 F 68 From: Rah duran MD PCP: Dr. Shayne Diaz MD Status: REG CLI Study: US Breast Biopsy 1st Lesion Date of Exam: 08/04 Exam# [id number] Ordering Dr: Guido Sharma MD [id number] STUDY: ULTRASOUND BREAST - LEFT REASON FOR EXAM: Female, 68 years old. Left breast mass. TECHNIQUE: Axial and longitudinal images of the LEFT breast were performed with a high resolution ultrasound transducer. # OF IMAGES: 24 COMPARISON: Comparison is made with prior sonogram of the left breast is March 04, 2022. FINDINGS: LEFT Breast: Under direct sonographic guidance, the surgeon performing core biopsies of the 2 suspicious nodules at the 11:00 position of the breast at 2 cm from nipple. US/US Breast Biopsy 1st Lesion IMPRESSION: Ultrasound-guided core biopsies of the 2 adjacent suspicious nodules at the 11:00 position of the breast at 2 cm from the nipple. ASSESSMENT CATEGORY: BIRADS Category 2: Benign. A letter regarding these results will be sent to the patient by the facility within 30 days. Electronically Signed: Rah Kenney MD at 13:53 EDT , CC: Dr. Shayne Diaz MD; Dr. Guido Sharma MD Inspector Health Care Facilities: Signed Normal [facility] Breast Limited Unilateralon 03-04-2024 Breast Limited Unilateral [facility] Imaging Services [address] [place] [id number] Breast Limited Unilateral MR#: [id number] Acct: [id number] Name: LEANDRA OCAMPO Rep #: [id number] : 1955 F 68 From: Rah duran MD PCP: Dr. Shayne Diaz MD Status: REG CLI Study: Breast Limited Unilateral Date of Exam: Exam# [id number] Ordering Dr: Guido Sharma MD [id number] STUDY: ULTRASOUND BREAST - LEFT REASON FOR EXAM: Female, 68 years old. Abnormal MRI examination. TECHNIQUE: Axial and longitudinal images of the LEFT breast were performed with a high resolution ultrasound transducer. # OF IMAGES: 56 COMPARISON: Comparison is made with prior sonogram dated January 18, 2024 and prior MRI dated February 08, 2024. FINDINGS: LEFT Breast: There are 2 adjacent hypoechoic nodules at the 11:00 position of the breast at 2 to 3 cm from nipple. The larger measures 4 mm x 8 mm x 4 mm. Peripheral calcification is seen. There is also evidence of a hypoechoic area with calcification at the 3:00 position of breast just lateral to the areola. US/Breast Limited Unilateral IMPRESSION: The MRI abnormality corresponds to a 4 mm x 8 mm x 4 mm irregular hypoechoic nodule with calcification and shadowing at the 11:00 position of the breast at 2 to 3 cm from nipple. ASSESSMENT CATEGORY: BIRADS Category 4: Suspicious - Biopsy Should Be Considered. A letter regarding these results will be sent to the patient by the facility within 30 days. Electronically Signed: Rah Kenney MD at 10:33 EDT , CC: Dr. Shayne Diaz MD; Dr. Guido Sharma MD Inspector Health Care Facilities: Signed Normal [facility] Surgery Visit Reporton 02-25 Surgery Visit Report [facility] [address] [place] [address] OFFICE VISIT Date of Service: 02/26/24 MR#: [id number] Acct: [id number] Name: LEANDRA OCAMPO Rep #: [id number] : 1955 Provider: Dr. Guido olvera MD Age/Sex: 68/F Location: [facility] Status: Signed Intake Vital Signs 01/24/24 07:18 Height 5 ft Intake Visit Reasons: L BREAST BREAST Chief Complaint: left breast cyst Nut Threader Required: No Is patient in pain?: No Allergies minocycline Allergy (Verified 02/26/24 14:42) Other azithromycin (From Zithromax Z-Victor M) Adverse Reaction (Mild, Verified 02/26/24 14:42) Upset Stomach Medications ???Medication ???Instructions ???Recorded ???Confirmed ???Type metronidazole 0.75 % topical cream 1 applic topical BID 07/13/23 02/26/24 History cholecalciferol (vitamin D3) 50 50 mcg PO DAILY 01/07/24 02/26/24 History mcg (2,000 unit) capsule omeprazole 20 mg capsule,delayed 20 mg PO DAILY #30 caps 01/07/24 02/26/24 Rx release calcium carbonate 600 mg PO DAILY 01/21/24 02/26/24 History sulfacetamide sodium-sulfur 8 %-4 1 applic topical DAILY 01/21/24 02/26/24 History % topical suspension Have you fallen in the past year?: No PFSH Medical History Breast cyst Osteoporosis Wears glasses Depression Anxiety Post-menopausal Arthritis Injury of head and neck Injury of back Syncope Gastric reflux Non-smoker History of irregular heartbeat Surgical History Hx of colonoscopy H/O tubal ligation H/O removal of cyst H/O dilation and curettage Family History Daughter Asthma Mother Arthritis Osteoporosis Skin cancer CVA (cerebral vascular accident) Father Bladder cancer Kidney disease Son Diabetes Social History Smoking Status: Never smoker alcohol intake: never substance use type: does not use HPI HPI HPI: Patient is a 68-year-old female who is known to me for history of various GI complaints and was last seen on 10/30/2023. Today she presents for evaluation of abnormal mammography and palpable axillary lump. They are referred from Dr. Diaz. Based on sonographic criteria this was given a BI-RADS 2 while mammographic interpretation was a BI-RADS 0. Patient shares that with the discrepancy she was recommended to undergo an MRI of the breast. This was completed on 02/08/2024 and was also given a BI-RADS rating of 0 with a recommendation for repeat ultrasound exam to focus in the retroareolar region for better characterization of a finding measuring 1.3 x 1.1 x 1.8 cm, 3.4 cm deep to the nipple. While Mrs. Ocampo completed a follow-up ultrasound this was obtained just as a soft tissue ultrasound of the left axilla and showed evidence of a 1.0 x 0.9 x 0.6 cm cystic lesion felt by radiology to represent and involuted sebaceous cyst. Additionally noteworthy and pertinent negative they identified no suspicious aggressive irregular nodule and no suspicious bulky adenopathy, but there [were] physiologic nodes in the axilla. Considering these represent 2 separate issues, Mrs. Ocampo shares that she first felt the left armpit lesion approximately a year and a half ago and was told by dermatology that represented a cyst and there is nothing to be done about it. She denies any pain or drainage from this area, however, she does confirm some discomfort. She reports that Dr. Diaz was interested in further follow-up, but overall she has felt confusion about the overall workup. She confirms that the breast lesion has remained just a finding of screening mammography. Patient has no prior history of breast pathology. She has no history of prior breast biopsy. She underwent menarche at the age of 10 or 11. She has had 4 pregnancies and 3 live births. Breast- feeding was used. Patient has no first-degree relatives with breast cancer. She does share about a maternal first cousin and a maternal great aunt that both had breast cancer but is uncertain their age of diagnosis. There is no tenderness with the present finding. There is no nipple discharge associated with this finding. The patient has no history of hormone replacement therapy. There is no history of trauma/infection to the affected breast. ROS General General: Yes weight change (loss- ten pounds ); No appetite, fatigue, colon cancer or breast cancer HEENT HEENT: No difficulty swallowing, eye injury, eye surgery, swollen glands or hoarseness Endo Endocrine: No thyroid disease, diabetes mellitus, thyroid cancer, Hair loss, heat intolerance or cold intolerance Additional Details: thyroid nodules Skin Skin: Yes changing moles; N (more content not included)... Normal [facility] Ext Non Vasc Limited/Soft Ti sson 02-21-2024 Ext Non Vasc Limited/Soft Tiss [facility] Services [address] [place] [address] Ext Non Vasc Limited/Soft Tiss MR#: [id number] Acct: [id number] Name: LEANDRA OCAMPO Rep #: [id number] : 1955 F 68 From: Dominick Schneider MD PCP: Dr. Shayne iDaz MD Status: REG [facility] Study: Ext Non Vasc Limited/Soft Tiss Date of Exam: 0 02/21/24 Exam# [id number] Ordering Dr: Shayne Diaz MD [id number] STUDY: SUPERFICIAL ULTRASOUND - LEFT AXILLA, LEFT UPPER ARM REASON FOR EXAM: Female, 68 years old. Lump in left arm pit TECHNIQUE: A superficial ultrasound was performed with real-time and static zaldivar-scale imaging. COMPARISON: None. FINDINGS: Focused sonographic evaluation of the patient''s palpable lump shows a well-defined complex cystic structure measuring 1.0 x 0.9 x 0.6 cm. Borders are well-defined, there is increased through transmission of sound and no posterior shadowing or distortion. Findings are likely public relations representative of an involuted sebaceous cyst. There is no suspicious aggressive irregular nodule identified, no suspicious bulky adenopathy, there are physiologic lymph nodes in the axilla. US/Ext Non Vasc Limited/Soft Tiss IMPRESSION: Palpable lump corresponds to a complex predominantly cystic well-defined subcutaneous nodule measuring 1.0 x 0.9 x 0.6 cm. Physiologic subcentimeter in short axis dimension axillary adenopathy No suspicious aggressive abnormality noted Electronically Signed: Chandrakant Schneider MD at 15:35 EDT , CC: Dr. Shayne Diaz MD Inspector Health Care Facilities: Signed Normal [facility] Basophil percentageOrdered B y: Shayne Diaz on 08-24-2023 Bilirubin [Mass/Vol] 0.80 mg/dL 0.20-1.00 [facility] Comment on above: For patients on eltr ombopag therapy, use of Dimension [place] TBIL is not recommended. Chloride [Moles/Vol] 109 mmol/L 98-107 [facility] Glucose [Mass/Vol] 101 mg/dL 74-106 [facility] Comment on above: Fasting Glucose resu lt from 100 to 125 mg/dL suggests IMPAIRED HOMEOSTASIS per A.D.A. criteria. Potassium [Moles/Vol] 4.1 mmol/L 3.5-5.1 [facility] Protein [Mass/Vol] 7.0 g/dL 6.4-8.2 [facility] Sodium [Moles/Vol] 141 mmol/L 136-145 [facility] - Chemistry and C hemistry - challengeOrdered By: Shayne Diaz on 08-24-2023 Albumin/Globulin [Mass ratio] 1.1 {ratio} 0.9-2.4 [facility] ALP [Catalytic activity/Vol] 110 U/L 45-117 [facility] ALT [Catalytic activity/Vol] 16 U/L 13-56 [facility] CO2 [Moles/Vol] 28.0 mmol/L 21.0-32.0 [facility] Globulin (S) [Mass/Vol] 3.4 g/dL 2.2-4.2 [facility] Urea nitrogen/Creatinine [Mass ratio] 15.8 mg/mg 10-20 [facility] No Panel InformationOrdered By: Shayne Diaz on 08-24-2023 Estimated GFR (MDRD) Amer 97 mL/min >60 [facility] Comment on above: GFR Calc Estimated GFR (MDRD) Non-Af Amer 80 mL/min >60 [facility] Comment on above: Non- GFR Calc Vitamin D 25-Hydroxy 42.8 ng/mL [facility] Comment on above: Vitamin D 25(OH) Sta tus Range Deficiency <20 ng/mL (50nmol/L) Insufficiency 20 - 30 ng/mL (50 - 75 nmol/L) Sufficiency 30 - 100 ng/mL (75 - 250 nmol/L) Toxicity >100 ng/mL (>250 nmol/L) Serum or plasma calcium letty urement (mass/volume)Ordered By: Shayne Diaz on 08-24-2023 Calcium [Mass/Vol] 9.6 mg/dL 8.5-10.1 [facility] Serum or plasma creatinine m easurement (mass/volume)Ordered By: Shayne Diaz on 08-24-2023 Creatinine [Mass/Vol] 0.76 mg/dL 0.55-1.02 [facility] Comment on above: The validity of the calculated GFR & GFRAA in patients over 70 years has not been determined. Clinical correlation is essential. Serum or plasma urea nitroge n measurement (mass/volume)Ordered By: Shayne Diaz on 08-24-2023 Urea nitrogen [Mass/Vol] 12 mg/dL 7-18 [facility] Thin prep Papanicolaou smear with manual screeningOrdered By: Shayne Diaz on 08-24-2023 Thin prep Papanicolaou smear with manual screening 3.6 g/dL 3.2-5.0 [facility] Thin prep Papanicolaou smear with manual screening 19 U/L 15-37 [facility] Thin prep Papanicolaou smear with manual screening 4 5-15 [facility] Absolute lymphocyte countOrd ered By: Guzman Layne on 05-15-2023 Lymphocytes Auto (Unsp spec) [#/Vol] 1.60 10*3/uL 0.83-4.51 [facility] Basophil percentageOrdered B y: Guzman Layne on 05-15-2023 Basophils/100 WBC (Bld) 0.7 % 0-1 [facility] Chloride [Moles/Vol] 109 mmol/L 98-107 [facility] Eosinophils/100 WBC (Bld) 5.0 % 0-5 [facility] Glucose [Mass/Vol] 129 mg/dL 74-106 [facility] Comment on above: Fasting Glucose resu lt greater than or equal to 126 mg/dL suggests DIABETES MELLITUS per A.D.A. criteria. Neutrophils (Bld) [#/Vol] 4.7 10*3/uL 2.0-7.7 [facility] Neutrophils/100 WBC (Bld) 63.7 % 47-70 [facility] Potassium [Moles/Vol] 4.0 mmol/L 3.5-5.1 [facility] Sodium [Moles/Vol] 140 mmol/L 136-145 [facility] WBC (Bld) [#/Vol] 7.4 10*3/uL 4.4-11.0 [facility] Blood erythrocytes count (nu mber/volume)Ordered By: Guzman Layne on 05-15-2023 RBC (Bld) [#/Vol] 4.82 10*6/uL 4.2-5.4 [facility] Blood hemoglobin measurement (mass/volume)Ordered By: Guzman Layne on 05-15-2023 Hemoglobin (Bld) [Mass/Vol] 14.4 g/dL 12.0-15.0 [facility] Blood lymphocytes/100 leukoc ytesOrdered By: Guzman Layne on 05-15-2023 Lymphocytes/100 WBC (Bld) 21.5 % 19-41 [facility] Blood monocytes/100 leukocyt esOrdered By: Guzman Layne on 05-15-2023 Monocytes/100 WBC (Bld) 7.8 % 0-10 [facility] Blood platelet mean volumeOr dered By: Guzman Layne on 05-15-2023 Platelet mean volume (Bld) [Entitic vol] 10.4 fL 6.2-12.0 [facility] Determination of erythrocyte mean corpuscular volume (MCV)Ordered By: Guzman Layne on 05-15-2023 MCV (RBC) [Entitic vol] 87.6 fL 81-99 [facility] Hematocrit Auto (Bld) [Volum e fraction]Ordered By: Guzman Layne on 05-15-2023 Hematocrit (Bld) [Volume fraction] 42.2 % 37-47 [facility] - Chemistry and C hemistry - challengeOrdered By: Guzmanmeredith Layne on 05-15-2023 CO2 [Moles/Vol] 27.0 mmol/L 21.0-32.0 [facility] Urea nitrogen/Creatinine [Mass ratio] 22.1 mg/mg 10-20 [facility] - Hematology and Cell countsOrdered By: Guzmanmeredith Layne on 05-15-2023 Erythrocyte distribution width (RBC) [Entitic vol] 39.6 fL 35.1-43.9 [facility] Erythrocyte distribution width (RBC) [Ratio] 12.5 % 11.6-14.6 [facility] Immature granulocytes/100 WBC (Bld) 1.300 % 0.0-0.9 [facility] Comment on above: IG% - Immature Granu locytes (promyelocytes, myelocytes and metamyelocytes) > 1% indicates that a LEFT SHIFT is Present. MCH (RBC) [Entitic mass] 29.9 pg 27.0-32.0 [facility] Nucleated RBC/100 WBC (Bld) [Ratio] 0 % 0-5 [facility] MCHC Auto (RBC) [Mass/Vol]Or dered By: Guzman Layne on 05-15-2023 MCHC (RBC) [Mass/Vol] 34.1 g/dL 32-36 [facility] No Panel InformationOrdered By: Guzman Layne on 05-15-2023 Troponin I High Sensitivity 7 pg/mL 3.0-54.0 [facility] Comment on above: Please Note: New Niru t Units and Gender Specific Reference Ranges. For more information see Policy Stat Procedure [place] High Sensitivity Troponin (TNIH) and attachments. D-Dimer Quantitative (PE/DVT) 10.65 FEU/ug/m 0.27-0.49 [facility] Comment on above: D-Dimer ELEVATED (>0 .49): Additional studies and clinicalassessments are indicated to conclude diagnosis of:Deep Vein Thrombosis (DVT) or Pulmonary Embolism (PE) Estimated Creatinine Clearance Calc 68.34 ml/min [facility] Estimated GFR (MDRD) Amer 90 mL/min >60 [facility] Comment on above: GFR Calc Estimated GFR (MDRD) Non-Af Amer 74 mL/min >60 [facility] Comment on above: Non- GFR Calc Platelets bldOrdered By: Solo Layne on 05-15-2023 Platelets (Bld) [#/Vol] 259 10*3/uL 150-450 [facility] Serum or plasma calcium letty urement (mass/volume)Ordered By: Guzman Layne on 05-15-2023 Calcium [Mass/Vol] 9.3 mg/dL 8.5-10.1 [facility] Serum or plasma creatinine m easurement (mass/volume)Ordered By: Guzman Layne on 05-15-2023 Creatinine [Mass/Vol] 0.81 mg/dL 0.55-1.02 [facility] Comment on above: The validity of the calculated GFR & GFRAA in patients over 70 years has not been determined. Clinical correlation is essential. Serum or plasma urea nitroge n measurement (mass/volume)Ordered By: Guzman Layne on 05-15-2023 Urea nitrogen [Mass/Vol] 18 mg/dL 7-18 [facility] Thin prep Papanicolaou smear with manual screeningOrdered By: Guzman Layne on 05-15-2023 Thin prep Papanicolaou smear with manual screening 4 5-15 [facility] Absolute lymphocyte countOrd ered By: Gabriela Coffman on 05-07-2023 Lymphocytes Auto (Unsp spec) [#/Vol] 1.65 10*3/uL 0.83-4.51 [facility] Basophil percentageOrdered B y: Gabriela Coffman on 05-07-2023 Basophils/100 WBC (Bld) 0.6 % 0-1 [facility] Bilirubin [Mass/Vol] 0.50 mg/dL 0.20-1.00 [facility] Comment on above: For patients on eltr ombopag therapy, use of Dimension [place] TBIL is not recommended. Chloride [Moles/Vol] 106 mmol/L 98-107 [facility] Eosinophils/100 WBC (Bld) 7.0 % 0-5 [facility] Glucose [Mass/Vol] 96 mg/dL 74-106 [facility] Neutrophils (Bld) [#/Vol] 3.6 10*3/uL 2.0-7.7 [facility] Neutrophils/100 WBC (Bld) 56.5 % 47-70 [facility] Potassium [Moles/Vol] 4.0 mmol/L 3.5-5.1 [facility] Protein [Mass/Vol] 7.1 g/dL 6.4-8.2 [facility] Sodium [Moles/Vol] 140 mmol/L 136-145 [facility] WBC (Bld) [#/Vol] 6.3 10*3/uL 4.4-11.0 [facility] Blood erythrocytes count (nu mber/volume)Ordered By: Gabriela Coffman on 05-07-2023 RBC (Bld) [#/Vol] 4.97 10*6/uL 4.2-5.4 [facility] Blood hemoglobin measurement (mass/volume)Ordered By: Gabriela Coffman on 05-07-2023 Hemoglobin (Bld) [Mass/Vol] 14.7 g/dL 12.0-15.0 [facility] Blood lymphocytes/100 leukoc ytesOrdered By: Gabriela Coffman on 05-07-2023 Lymphocytes/100 WBC (Bld) 26.1 % 19-41 [facility] Blood monocytes/100 leukocyt esOrdered By: Gabriela Coffman on 05-07-2023 Monocytes/100 WBC (Bld) 9.5 % 0-10 [facility] Blood platelet mean volumeOr dered By: Gabriela Coffman on 05-07-2023 Platelet mean volume (Bld) [Entitic vol] 10.3 fL 6.2-12.0 [facility] Culture, urineOrdered By: Adeel Coffman on 05-07-2023 Bacteria identified Cx Nom (U) Culture exhibits no growth. [facility] Bacteria identified Cx Nom (U) Culture exhibits no growth. [facility] Determination of erythrocyte mean corpuscular volume (MCV)Ordered By: Gabriela Coffman on 05-07-2023 MCV (RBC) [Entitic vol] 88.9 fL 81-99 [facility] Erythrocyte sedimentation ra teOrdered By: Gabriela Coffman on 05-07-2023 ESR (Bld) [Velocity] 9 mm/h 0-30 [facility] Hematocrit Auto (Bld) [Volum e fraction]Ordered By: Gabriela Coffmna on 05-07-2023 Hematocrit (Bld) [Volume fraction] 44.2 % 37-47 [facility] Laboratory - Chemistry and C hemistry - challengeOrdered By: Gabriela Coffman on 05-07-2023 ALP [Catalytic activity/Vol] 105 U/L 45-117 [facility] ALT [Catalytic activity/Vol] 16 U/L 13-56 [facility] CO2 [Moles/Vol] 27.0 mmol/L 21.0-32.0 [facility] Globulin (S) [Mass/Vol] 3.4 g/dL 2.2-4.2 [facility] Urea nitrogen/Creatinine [Mass ratio] 17.1 mg/mg 10-20 [facility] Laboratory - Hematology and Cell countsOrdered By: Gabriela Coffman on 05-07-2023 Erythrocyte distribution width (RBC) [Entitic vol] 41.1 fL 35.1-43.9 [facility] Erythrocyte distribution width (RBC) [Ratio] 12.6 % 11.6-14.6 [facility] Immature granulocytes/100 WBC (Bld) 0.300 % 0.0-0.9 [facility] Comment on above: IG% - Immature Granu locytes (promyelocytes, myelocytes and metamyelocytes) > 1% indicates that a LEFT SHIFT is Present. MCH (RBC) [Entitic mass] 29.6 pg 27.0-32.0 [facility] Nucleated RBC/100 WBC (Bld) [Ratio] 0 % 0-5 [facility] MCHC Auto (RBC) [Mass/Vol]Or dered By: Gabriela Coffman on 05-07-2023 MCHC (RBC) [Mass/Vol] 33.3 g/dL 32-36 [facility] No Panel InformationOrdered By: Gabriela Coffman on 05-07-2023 Anti-Nuclear Antibody Screen Negative Negative [facility] Comment on above: Performed at: [employer] [address] [id number] Director: Rizwan Ryan PhD, Phone: [phone] Estimated GFR (MDRD) Amer 76 mL/min >60 [facility] Comment on above: GFR Calc Estimated GFR (MDRD) Non-Af Amer 63 mL/min >60 [facility] Comment on above: Non- GFR Calc Thyroid Stimulating Hormone (TSH) 1.14 uIU/mL 0.358-3.74 [facility] Vitamin D 25-Hydroxy 68.5 ng/mL [facility] Comment on above: Vitamin D 25(OH) Sta tus Range Deficiency <20 ng/mL (50nmol/L) Insufficiency 20 - 30 ng/mL (50 - 75 nmol/L) Sufficiency 30 - 100 ng/mL (75 - 250 nmol/L) Toxicity >100 ng/mL (>250 nmol/L) Platelets bldOrdered By: Rani Coffman on 05-07-2023 Platelets (Bld) [#/Vol] 302 10*3/uL 150-450 [facility] Serum or plasma C reactive p rotein measurement (mass/volume)Ordered By: Gabriela Coffman on 05-07-2023 CRP [Mass/Vol] mg/L 0.0-3.0 [facility] Comment on above: C-Reactive Protein ( CRP) provides useful information for thediagnosis, therapy and monitoring of inflammatory processesand associated diseases. For the evaluation of Relative Riskfor Cardiovascular Disease, a High Sensitivity CRP (HSCRP)should be ordered. Serum or plasma albumin letty urement (mass/volume)Ordered By: Gabriela Coffman on 05-07-2023 Albumin [Mass/Vol] 3.7 g/dL 3.2-5.0 [facility] Serum or plasma albumin/glob ulin mass ratioOrdered By: Gabriela Coffman on 05-07-2023 Albumin/Globulin [Mass ratio] 1.1 {ratio} 0.9-2.4 [facility] Serum or plasma calcium letty urement (mass/volume)Ordered By: Gabriela Coffman on 05-07-2023 Calcium [Mass/Vol] 9.3 mg/dL 8.5-10.1 [facility] Serum or plasma creatinine m easurement (mass/volume)Ordered By: Gabriela Coffman on 05-07-2023 Creatinine [Mass/Vol] 0.94 mg/dL 0.55-1.02 [facility] Comment on above: The validity of the calculated GFR & GFRAA in patients over 70 years has not been determined. Clinical correlation is essential. Serum or plasma urea nitroge n measurement (mass/volume)Ordered By: Gabriela Coffman on 05-07-2023 Urea nitrogen [Mass/Vol] 16 mg/dL 7-18 [facility] Thin prep Papanicolaou smear with manual screeningOrdered By: Gabriela Coffman on 05-07-2023 Thin prep Papanicolaou smear with manual screening 18 U/L 15 [facility] Thin prep Papanicolaou smear with manual screening 7 5- [facility] Laboratory - Chemistry and C hemistry - challengeOrdered By: Gabriela Coffman on 04-30-2023 Cobalamin (Vitamin B12) [Mass/Vol] 995 pg/mL [facility] Throat specimen bacteria kourtney ntification by cultureOrdered By: Shayne Diaz on 01-03-2023 Bacteria identified Cx Nom (Throat) [facility] Laboratory - Chemistry and C hemistry - challengeOrdered By: Gabriela Coffman on 10-23-2022 Cobalamin (Vitamin B12) [Mass/Vol] 902 pg/mL [facility] No Panel InformationOrdered By: Lesli Lemus on 07-10-2022 Vitamin B12 Level > 2000 pg/mL [facility] Absolute lymphocyte countOrd ered By: Gabriela Coffman on 06-01-2022 Lymphocytes Auto (Unsp spec) [#/Vol] 2.35 10*3/uL 0.83-4.51 [facility] Basophil percentageOrdered B y: Gabriela Coffman on 06-01-2022 Basophils/100 WBC (Bld) 0.3 % 0-1 [facility] Bilirubin [Mass/Vol] 0.50 mg/dL 0.20-1.00 [facility] Comment on above: For patients on eltr ombopag therapy, use of Dimension [place] TBIL is not recommended. Chloride [Moles/Vol] 105 mmol/L 98-107 [facility] Eosinophils/100 WBC (Bld) 1.5 % 0-5 [facility] Glucose [Mass/Vol] 82 mg/dL 74-106 [facility] Neutrophils (Bld) [#/Vol] 4.7 10*3/uL 2.0-7.7 [facility] Neutrophils/100 WBC (Bld) 59.2 % 47-70 [facility] Potassium [Moles/Vol] 3.9 mmol/L 3.5-5.1 [facility] Protein [Mass/Vol] 6.9 g/dL 6.4-8.2 [facility] Sodium [Moles/Vol] 142 mmol/L 136-145 [facility] WBC (Bld) [#/Vol] 7.9 10*3/uL 4.4-11.0 [facility] Blood erythrocytes count (nu mber/volume)Ordered By: Gabriela Coffman on 06-01-2022 RBC (Bld) [#/Vol] 4.96 10*6/uL 4.2-5.4 [facility] Blood hemoglobin measurement (mass/volume)Ordered By: Gabriela Coffman on 06-01-2022 Hemoglobin (Bld) [Mass/Vol] 14.9 g/dL 12.0-15.0 [facility] Blood lymphocytes/100 leukoc ytesOrdered By: Gabriela Coffman on 06-01-2022 Lymphocytes/100 WBC (Bld) 29.8 % 19-41 [facility] Blood monocytes/100 leukocyt esOrdered By: Gabriela Coffman on 06-01-2022 Monocytes/100 WBC (Bld) 8.9 % 0-10 [facility] Blood platelet mean volumeOr dered By: Gabriela Coffman on 06-01-2022 Platelet mean volume (Bld) [Entitic vol] 10.8 fL 6.2-12.0 [facility] Determination of erythrocyte mean corpuscular volume (MCV)Ordered By: Gabriela Coffman on 06-01-2022 MCV (RBC) [Entitic vol] 90.3 fL 81-99 [facility] Hematocrit Auto (Bld) [Volum e fraction]Ordered By: Gabriela Coffman on 06-01-2022 Hematocrit (Bld) [Volume fraction] 44.8 % 37-47 [facility] Laboratory - Chemistry and C hemistry - challengeOrdered By: Gabriela Coffman on 06-01-2022 ALP [Catalytic activity/Vol] 94 U/L 45-117 [facility] ALT [Catalytic activity/Vol] 20 U/L 13-56 [facility] CO2 [Moles/Vol] 30.0 mmol/L 21.0-32.0 [facility] Cobalamin (Vitamin B12) [Mass/Vol] 283 pg/mL 211-911 [facility] Globulin (S) [Mass/Vol] 2.9 g/dL 2.2-4.2 [facility] Urea nitrogen/Creatinine [Mass ratio] 15.2 mg/mg 10-20 [facility] Laboratory - Hematology and Cell countsOrdered By: Gabriela Coffman on 06-01-2022 Erythrocyte distribution width (RBC) [Entitic vol] 41.9 fL 35.1-43.9 [facility] Erythrocyte distribution width (RBC) [Ratio] 12.8 % 11.6-14.6 [facility] Immature granulocytes/100 WBC (Bld) 0.300 % 0.0-0.9 [facility] Comment on above: IG% - Immature Granu locytes (promyelocytes, myelocytes and metamyelocytes) > 1% indicates that a LEFT SHIFT is Present. MCH (RBC) [Entitic mass] 30.0 pg 27.0-32.0 [facility] Nucleated RBC/100 WBC (Bld) [Ratio] 0 % 0-5 [facility] MCHC Auto (RBC) [Mass/Vol]Or dered By: Gabriela Coffman on 06-01-2022 MCHC (RBC) [Mass/Vol] 33.3 g/dL 32-36 [facility] No Panel InformationOrdered By: Gabriela Coffman on 06-01-2022 Estimated GFR (MDRD) Amer 78 mL/min >60 [facility] Comment on above: GFR Calc Estimated GFR (MDRD) Non-Af Amer 64 mL/min >60 [facility] Comment on above: Non- GFR Calc Thyroid Stimulating Hormone (TSH) 1.50 uIU/mL 0.358-3.74 [facility] Platelets bldOrdered By: Rani Coffman on 06-01-2022 Platelets (Bld) [#/Vol] 302 10*3/uL 150-450 [facility] Serum or plasma albumin letty urement (mass/volume)Ordered By: Gabriela Coffman on 06-01-2022 Albumin [Mass/Vol] 4.0 g/dL 3.2-5.0 [facility] Serum or plasma albumin/glob ulin mass ratioOrdered By: Gabriela Coffman on 06-01-2022 Albumin/Globulin [Mass ratio] 1.4 {ratio} 0.9-2.4 [facility] Serum or plasma calcium letty urement (mass/volume)Ordered By: Gabriela Coffman on 06-01-2022 Calcium [Mass/Vol] 9.8 mg/dL 8.5-10.1 [facility] Serum or plasma creatinine m easurement (mass/volume)Ordered By: Gabriela Coffman on 06-01-2022 Creatinine [Mass/Vol] 0.92 mg/dL 0.55-1.02 [facility] Comment on above: The validity of the calculated GFR & GFRAA in patients over 70 years has not been determined. Clinical correlation is essential. Serum or plasma ferritin brandon surement (mass/volume)Ordered By: Gabriela Coffman on 06-01-2022 Ferritin [Mass/Vol] 88 ng/mL 8-252 [facility] Serum or plasma urea nitroge n measurement (mass/volume)Ordered By: Gabriela Coffman on 06-01-2022 Urea nitrogen [Mass/Vol] 14 mg/dL 7-18 [facility] Thin prep Papanicolaou smear with manual screeningOrdered By: Gabriela Coffman on 06-01-2022 Thin prep Papanicolaou smear with manual screening 13 U/L 15-37 [facility] Thin prep Papanicolaou smear with manual screening 7 5-15 [facility] No Panel Informationon 10-21 Vitamin D 25-Hydroxy 50.1 ng/mL [facility] Work Phone: Comment on above: Vitamin D 25(OH) Sta tus Range Deficiency <20 ng/mL (50nmol/L) Insufficiency 20 - 30 ng/mL (50 - 75 nmol/L) Sufficiency 30 - 100 ng/mL (75 - 250 nmol/L) Toxicity >100 ng/mL (>250 nmol/L) Serum or plasma calcium letty urement (mass/volume)on 10-21-2021 Calcium [Mass/Vol] 9.9 mg/dL 8.5-10.1 [facility] Work Phone: Vital Signs Date Time Vital Sign Value Performing Clinician Faci lity 06-16-2024 10:30-0500 Body height 149.86 cm Shayne Diaz MD Work Phone: [facility] 06-16-2024 10:30-0500 Diastolic blood pressure 83 mm[Hg] Shayne Diaz MD Work Phone: [facility] 06-16-2024 10:30-0500 Respiratory rate 16 /min Shayne Diaz MD Work Phone: [facility] 06-16-2024 10:30-0500 Systolic blood pressure 127 mm[Hg] Shayne Diaz MD Work Phone: [facility] 05-14-2024 15:07-0500 Body mass index (BMI) [Ratio] 26.1 kg/m2 Shayne Diaz MD Work Phone: [facility] 05-14-2024 15:07-0500 Body temperature 97.5 [degF] Shayne Diaz MD Work Phone: [facility] 05-14-2024 15:07-0500 Body weight 58.68 kg Shayne Diaz MD Work Phone: [facility] 05-14-2024 15:07-0500 Diastolic blood pressure 85 mm[Hg] Shayne Diaz MD Work Phone: [facility] 05-14-2024 15:07-0500 Heart rate 60 /min Shayne Diaz MD Work Phone: [facility] 05-14-2024 15:07-0500 Respiratory rate 16 /min Shayne Diaz MD Work Phone: [facility] 05-14-2024 15:07-0500 SaO2% (BldA) [Mass fraction] 97 % Shayne Diaz MD Work Phone: [facility] 05-14-2024 15:07-0500 Systolic blood pressure 154 mm[Hg] Shayne Diaz MD Work Phone: [facility] 05-14-2024 13:28-0500 Body mass index (BMI) [Ratio] 25.4 kg/m2 Shayne Diaz MD Work Phone: [facility] 05-14-2024 13:28-0500 Body weight 58.96 kg Shayne Diaz MD Work Phone: [facility] 05-14-2024 13:28-0500 Diastolic blood pressure 85 mm[Hg] Shayne Diaz MD Work Phone: [facility] 05-14-2024 13:28-0500 Systolic blood pressure 142 mm[Hg] Shanye Diaz MD Work Phone: [facility] 09-20-2023 11:15-0400 Body temperature 97.8 [degF] DO Gabriela Coffman Work Phone: [facility] 09-20-2023 11:15-0400 Diastolic blood pressure 70 mm[Hg] DO Gabriela Hiltonnger Work Phone: [facility] 09-20-2023 11:15-0400 Heart rate 73 /min DO Gabriela Meghna Work Phone: [facility] 09-20-2023 11:15-0400 Respiratory rate 16 /min DO Gabriela Coffman Work Phone: [facility] 09-20-2023 11:15-0400 SaO2% (BldA) [Mass fraction] 99 % DO Gabriela Meghna Work Phone: [facility] 09-20-2023 11:15-0400 Systolic blood pressure 114 mm[Hg] DO Gabriela Meghna Work Phone: [facility] 09-20-2023 08:39-0400 Body height 152.4 cm DO Gabriela Meghna Work Phone: [facility] 09-20-2023 08:39-0400 Body mass index (BMI) [Ratio] 23.6 kg/m2 DO Gabriela Meghna Work Phone: [facility] 09-20-2023 08:39-0400 Body weight 54.88 kg DO Gabriela Meghna Work Phone: [facility] 07-13-2023 09:15-0500 Body height 152.4 cm DO Gabriela Meghna Work Phone: [facility] 07-13-2023 09:15-0500 Body mass index (BMI) [Ratio] 24.6 kg/m2 DO Gabriela Meghna Work Phone: [facility] 07-13-2023 09:15-0500 Body temperature 97.6 [degF] DO Gabriela Meghna Work Phone: [facility] 07-13-2023 09:15-0500 Body weight 57.26 kg DO Gabriela Meghna Work Phone: [facility] 07-13-2023 09:15-0500 Diastolic blood pressure 84 mm[Hg] DO Gabriela Meghna Work Phone: [facility] 07-13-2023 09:15-0500 Heart rate 78 /min DO Gabriela Meghna Work Phone: [facility] 07-13-2023 09:15-0500 Respiratory rate 17 /min DO Gabriela Meghna Work Phone: [facility] 07-13-2023 09:15-0500 SaO2% (BldA) [Mass fraction] 100 % DO Gabriela Hiltonnger Work Phone: [facility] 07-13-2023 09:15-0500 Systolic blood pressure 134 mm[Hg] DO Gabrielajos Hiltonnger Work Phone: [facility] 05-15-2023 11:35-0500 Diastolic blood pressure 61 mm[Hg] [facility] 05-15-2023 11:35-0500 Heart rate 80 /min [facility] 05-15-2023 11:35-0500 Respiratory rate 16 /min [facility] 05-15-2023 11:35-0500 SaO2% (BldA) [Mass fraction] 98 % [facility] 05-15-2023 11:35-0500 Systolic blood pressure 131 mm[Hg] [facility] 05-15-2023 07:00-0500 Body height 149.86 cm [facility] 05-15-2023 07:00-0500 Body mass index (BMI) [Ratio] 29.4 kg/m2 [facility] 05-15-2023 07:00-0500 Body temperature 97 [degF] [facility] 05-15-2023 07:00-0500 Body weight 66.04 kg [facility] Encounters Encounter Date Encounter Type Care Provider Facility Start: 02-19-2025 ambulatory Shayne Diaz Facility:[facility] Start: 11-25-2024 End: 11-25-2024 [facility] Start: 11-25-2024 End: 11-25-2024 ambulatory Shayne Diaz MD Work Phone: [facility] Work Phone: Start: 10-29-2024 End: 10-29-2024 ambulatory Shayne Diaz MD Work Phone: [facility] Work Phone: Start: 10-29-2024 End: 10-29-[address] Aaron Roberts MD -Laboratory Work Phone: Start: 10-29-2024 End: 10-29-2024 ambulatory Aaron Roberts Facility:[facility] Start: 08-29-2024 End: 08-29-2024 ambulatory Shayne Diaz MD Work Phone: [facility] Work Phone: Start: 08-29-2024 End: 08-29-[address] Shayne Diaz MD -Laboratory, [facility] Start: 08-29-2024 End: 08-29-2024 ambulatory Shayne Diaz Facility:[facility] Start: 07-15-2024 End: 07-15-[address] Shayne Diaz MD -Laboratory, [facility] Start: 07-15-2024 End: 07-15-2024 [facility] Start: 07-08-2024 End: 07-08-[address] Guido Sharma MD -[facility] Work Phone: Start: 07-08-2024 End: 07-08-2024 ambulatory Guido Sharma Facility:[facility] Start: 06-16-2024 End: 06-16-[address] Guido Sharma MD -[facility] Work Phone: Start: 06-16-2024 End: 06-16-2024 ambulatory Guido Sharma Facility:[facility] Start: 06-12-2024 End: 06-12-[address] Hung Saldana MD -Laboratory, [facility] Start: 06-12-2024 End: 06-12-2024 ambulatory Hung Saldana Facility:[facility] Start: 05-14-[address] Charito Goldsmith MD -[facility] Start: 05-14-2024 End: 05-14-[address] Rosana Goldsmith MD -[facility] Work Phone: Start: 05-14-2024 End: 05-14-2024 ambulatory Rosana Goldsmith Facility:[facility] Start: 05-14-2024 End: 05-14-2024 Patient encounter procedure Veroncia CR -[facility] Work Phone: Start: 05-14-2024 End: 05-14-2024 ambulatory Shayne Joe Facility:[facility] Start: 05-06-2024 End: 05-06-2024 ambulatory Shayne Diaz Facility:[facility] Start: 04-18-2024 ambulatory Guido Sharma Facility: [facility] Start: 04-18-2024 End: 04-18-2024 ambulatory Guido Sharma Facility:[facility] Start: 04-01-2024 End: 04-01-2024 ambulatory Shayne Diaz Facility:[facility] Start: 04-01-2024 End: 04-01-[address] [facility] Start: 03-12-2024 ambulatory Guido Sharma Facility: [facility] Start: 03-12-2024 End: 03-12-2024 ambulatory Guido Edith Facility:[facility] Start: 03-04-2024 End: 03-04-[address] [facility] Start: 02-26-2024 End: 02-26-2024 ambulatory Shayne Diaz Facility:[facility] Start: 02-21-2024 End: 02-21-2024 [facility] Facility:[facility] Start: 09-20-2023 Non-patient / Non-visit DO Gabriela Coffman Work Phone: [facility] Start: 09-20-2023 End: 09-20-2023 Admission to same day surgery center DO Gabriela Coffman Work Phone: [facility] Start: 09-20-2023 End: 09-20-2023 ambulatory DO Gabriela Coffman Work Phone: [facility] Work Phone: Start: 08-24-2023 End: 08-24-2023 ambulatory DO Gabriela Coffman Work Phone: [facility] Work Phone: Start: 08-24-2023 End: 08-24-2023 Patient encounter procedure DO Gabriela Coffman Work Phone: [facility] Work Phone: Start: 08-03-2023 End: 08-03-2023 Patient encounter procedure DO Gabriela Coffman Work Phone: [facility] [facility] Work Phone: Start: 07-13-2023 End: 07-13-2023 Patient encounter procedure DO Gabriela Coffman Work Phone: [facility] Work Phone: Start: 06-19-2023 End: 06-19-2023 Patient encounter procedure DO Gabriela Coffman Work Phone: [facility], [facility] Work Phone: Start: 05-22-2023 End: 05-22-2023 ambulatory [facility] Work Phone: Start: 05-22-2023 End: 05-22-2023 Patient encounter procedure [facility], [facility] Work Phone: Start: 05-15-2023 End: 05-15-2023 Emergency department patient visit [facility] Work Phone: Start: 05-07-2023 End: 05-07-2023 ambulatory [facility] Work Phone: Start: 05-07-2023 End: 05-07-2023 Patient encounter procedure [facility] Start: 04-30-2023 End: 04-30-2023 Patient encounter procedure [facility] Start: 01-10-2023 End: 01-10-2023 ambulatory [facility] Work Phone: Start: 01-10-2023 End: 01-10-2023 Patient encounter procedure [facility] Work Phone: Start: 01-03-2023 End: 01-03-2023 ambulatory [facility] Work Phone: Start: 01-03-2023 End: 01-03-2023 [facility] Work Phone: Start: 10-23-2022 End: 10-23-2022 Patient encounter procedure [facility] Start: 07-10-2022 End: 07-10-2022 ambulatory [facility] Work Phone: Start: 07-10-2022 End: 07-10-2022 Patient encounter procedure [facility] Start: 06-01-2022 End: 06-01-2022 ambulatory [facility] Work Phone: Start: 06-01-2022 End: 06-01-2022 Patient encounter procedure [facility] Start: 11-17-2021 End: 11-17-2021 [facility] Start: 10-21-2021 End: 10-21-2021 Patient encounter procedure [facility] 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 Procedures Date Procedure Procedure Detail Performing Clinician Start: 10-29-2024 Scallop YUDI Pacheco Work Phone: Start: 10-29-2024 Sesame seed YUDI Diaz MD Work Phone: Comment on above: Performed at: [address] [id number] Director: Gabbi Ford MD, Phone: [phone] Start: 10-29-2024 Shrimp YUDI Pacheco Work Phone: Start: 07-15-2024 Folic acid measurement Shayne Diaz MD Work Phone: Start: 07-15-2024 Total iron binding c apacity measurement Shayne Diaz MD Work Phone: Start: 09-20-2023 Colonoscopy DO Gabriela Coffman Work Phone: Start: 06-19-2023 Radionuclide imaging of liver and/or biliary tract using radioactive isotope DO Gabriela Coffman Work Phone: Start: 05-22-2023 Ultrasonography of abdomen Start: 05-15-2023 CT angiography of ch est with contrast Start: 05-15-2023 Plain chest X-ray Start: 05-15-2023 Radiography of thora cic spine Start: 05-15-2023 X-ray of lumbar spin e, two or three views Start: 05-15-2023 CT of head without contrast Start: 05-07-2023 Bacteria identified in Urine by Culture Start: 05-07-2023 Urine culture Start: 01-10-2023 Screening mammography Start: 01-03-2023 Bacteria identification test Start: 11-17-2021 Dual energy X-ray absorptiometry Start: 11-17-2021 Screening mammography Plan of Treatment Date Care Activity Detail Author Start: 09-20-2023 Patient discharge [facility] Start: 05-15-2023 [facility] Colonoscopy [facility] Patient Education Compression Fx [facility] Work Phone: Patient referral [facility] Work Phone: [facility] Payers Date Payer Category Payer Medicare [id number] [facility] [id number] 2024 Self-pay [id number] 2024 Unknown [id number] 2006 Unknown [id number] Unknown [id number] 2.16.8 40.1.376546.3.579.2.462 Unknown [id number] 2.16.8 40.1.676036.3.579.2.462 Unknown [id number] 2.16.8 40.1.607894.3.579.2.462 Unknown [id number] 2.16.8 40.1.735758.3.579.2.462 Unknown [id number] 2.16.8 40.1.104288.3.579.2.462 Unknown [id number] 2.16.8 40.1.346439.3.579.2.462 Unknown [id number] 2.16.8 40.1.154782.3.579.2.462 Unknown [id number] 2.16.8 40.1.881190.3.579.2.462 Unknown [id number] 2.16.8 40.1.823575.3.579.2.462 Unknown [id number] 2.16.8 40.1.745129.3.579.2.462 Unknown [id number] 2.16.8 40.1.047011.3.579.2.462 Unknown [id number] 2.16.8 40.1.418619.3.579.2.462 Unknown [id number] 2.16.8 40.1.466325.3.579.2.462 Unknown [id number] 2.16.8 40.1.443176.3.579.2.462 Unknown [id number] 2.16.8 40.1.175887.3.579.2.462 Unknown [id number] 2.16.8 40.1.486726.3.579.2.462 Unknown [id number] 2.16.8 40.1.837257.3.579.2.462 Unknown [id number] 2.16.8 40.1.578147.3.579.2.462 Unknown [id number] 2.16.8 40.1.119788.3.579.2.462 Unknown [id number] 2.16.8 40.1.324694.3.579.2.462 Unknown [id number] 2.16.8 40.1.008389.3.579.2.462 Social History Date Type Detail [facility] Work Phone: Start: 1955 Sex Assigned At Female [facility] Start: 05-15-2023 End: 09-18-2023 Tobacco smoking status NHIS Unknown if ever smoked [facility] Start: 04-07-2024 Tobacco smoking stat us NMIS Never smoked tobacco (finding) [facility] Start: 09-05-2024 Sex Female (finding) [facility] Medical Equipment Procedure Code Equipment Code Equipment Origin al Text Equipment Identifier Dates Colonoscopy MARKER,ENDO SPOT AMARILIS INK FDA Start: 09-20-2023 Colonoscopy Ligation clip, metallic ()[id number] FDA Start: 01-24-2024 Colonoscopy Ligation clip, metallic ()[id number] FDA Start: 01-24-2024 Colonoscopy MARKER,ENDO SPOT AMARILIS INK FDA Start: 09-20-2023 Colonoscopy MARKER,ENDO SPOT AMARILIS INK FDA Start: 09-20-2023 Biopsy, breast, with needle localization, with US guidance Ligation clip, metallic ()[id number] FDA Start: 04-18-2024 Biopsy, breast, with needle localization, with US guidance Ligation clip, metallic ()[id number] FDA Start: 04-18-2024 Goals Date Patient Goal Desired Activity /State Mental Status Date Assessment Result Facility 09-20-2023 Cognitive function Level Of Cons ciousness Appropriate;Drowsy [facility] Work Phone: Clinical Notes 05-15-2023 to 07-08-2024 Note Date & Type Note Facility 07-08-2024 Evaluation note Diagnosis Onset Date Resolution Abnormal biliary HIDA scan acute July 08 9:39am Malaise acute July 08, 2024 9:39am Nausea acute July 08, 2024 9:39am Poor appetite acute June 9:39am [facility] Work Phone: 1(731) 746-543612-04-2024 Evaluation note* Diagnosis Onset Date Resolution Status Admit Date Atypical ductal hyperplasia of left breast acute May 14 1:22pm Encounter for annual routine gynecological examination acute Decemb er 2023 1:22pm Atypical ductal hyperplasia of left breast acute May 14 2:54pm Abnormal biliary HIDA scan acute June 16, 2024 10:12am Malaise acute June 16, 025 10:12am Nausea acute June 16 025 10:12am Poor appetite acute June 10:12am Abnormal biliary HIDA scan acute July 08, 2024 9:39am Malaise acute July 08, 2024 9:39am Nausea acute July 08, 2024 9:39am Poor appetite acute June 9:39am [facility] Work Phone: 1(106) 721-245311-08-2024 [facility] Medical Records Department [address] [place] [address] History Physical Exam 04/18/24 1049 MR#: [id number] Acct: [id number] Name: THOMAS,LEANDRA BARNEY Rep #: [id number] : 1955 68 From: Guido Sharma MD PCP: Dr. Shayne Diaz MD Status:[facility] Location: [place] [address] History and Physical Date of Admission: 04/18/24 Date of Service: 04/01/24 MR#: [id number] Acct: [id number] Name: LEANDRA OCAMPO Rep #: [id number] : 1955 Provider: Dr. Guido Sharma MD Age/Sex: 68/F Location: [facility] Status: Signed Intake Vital Signs 01/23/2407:18 Height 5 ft Intake Visit Reasons: Excision of cyst from under left arm Chief Complaint: excision of cyst from under left arm Accompanied by: Is patient in pain?: No Allergies minocycline Allergy (Verified 04/01/24 08:02) Otherazithromycin (From Zithromax Z-Victor M) Adverse Reaction (Mild, Verified 04/01/24 08:02) Upset Stomach Medications ???Medication ???Instructions ???Recorded ???Confirmed ???Type metronidazole 0.75 % topical cream 1 applic topical BID 07/13/23 04/01/24 History cholecalciferol (vitamin D3) 50 50 mcg PO DAILY 01/07/24 04/01/24 History mcg (2,000 unit) capsule omeprazole 20 mg capsule,delayed 20 mg PO DAILY #30 caps 01/07/24 04/01/24 Rx release calcium carbonate 600 mg PO DAILY 01/21/24 04/01/24 History sulfacetamide sodium-sulfur 8 %-4 1 applic topical DAILY 01/21/24 04/01/24 History % topical suspension Have you fallen in the past year?: No PFSH Medical History Abnormal ultrasound of breast Breast cyst Osteoporosis Wears glasses Depression Anxiety Post-menopausal Arthritis Injury of head and neck Injury of back Syncope Gastric reflux Non-smoker History of irregular heartbeat Surgical History Hx of colonoscopy H/O tubal ligation H/O removal of cyst H/O dilation and curettage Family History Daughter AsthmaMother Arthritis Osteoporosis Skin cancer CVA (cerebral vascular accident)Father Bladder cancer Kidney diseaseSon Diabetes Social History Smoking Status: Never smoker alcohol intake: never substance use type: does not use HPI HPI HPI: Patient is a 68-year-old female who presents for excision of left axillary mass following ultrasound-guided core needle biopsy of left breast mass on 03/12/2024. Unfortunately this latter biopsy showed some evidence of atypia and pathology has requested additional tissue for purposes of making a definitive diagnosis. Therefore, after relaying patient's pathology report via telephone I recommended to her that we proceed with excisional left breast biopsy of this site as well. She informs me that she is pending cataract surgery, asynchronously, for both eyes in the coming 3 weeks. She wishes to know better how she should prioritize recommendations for the breast biopsy as well as these elective procedures. Concerning her left axillary mass, she denies any new discomfort. ROS General General: Yes weight change (loss- ten pounds ); No appetite, fatigue, colon cancer or breast cancer HEENT HEENT: No difficulty swallowing, eye injury, eye surgery, swollen glands or hoarseness Endo Endocrine: No thyroid disease, diabetes mellitus, thyroid cancer, Hair loss, heat intolerance or cold intolerance Additional Details: thyroid nodules Skin Skin: Yes changing moles; No rash Musc Musculoskeletal: Yes back problems; No arthritis, rheumatoid arthritis, gout or joint pain Additional Details: T6/T9 fracture Cardio Cardiovascular: Yes murmur; No pacemaker, heart disease, atrial fibrillation, high blood pressure, heart attack, heart stent, palpitations, shortness of breat with exertion or chest pain Psych Psychiatric: Yes depression and anxiety; No hearing voices Resp Respiratory: No shortness of breath, No sleep apnea, No cough, No COPD, No asthma, No emphysema and No wheezing Gastro Gastrointestinal: No abdominal pain, No nausea or vomiting, No diarrhea, No constipation, No blood in stool, No acid reflux, Yes hemorrhoids, No ulcers, Yes gallbladder problem and No black,tarry stools Larry Hematologic: No blood thinners, No blood disorders, No bleeding, No anemia and No blood clots Exam Const General: cooperative, comfortable and no acute distress Orientation: alert, awake and oriented x3 Chest Other: Firm, semimobile, superficial cystic lesion within the hairbearing area of th (more content not included)...[facility]04-11-2024 History and physical note Author Guido Sharma [facility] September 20, 2023 9:48am Note Date/Time September 20, 2023 9:4 8am [facility] Medical Records Department [address] [place] [address] History & Physical Exam 09/20/23 0947 MR#: [id number] Acct: [id number] Name: LEANDRA OCAMPO SAVITA Rep #:[id number] : 1955 68 From: Guido Peña PCP: Dr. Shayne Diaz MD Status:REG SD C Location: [place] [address] History and Physical Date of Admission: 09/20/23 Date of Service: 08/03/23 MR#: [id number] Acct: [id number] Name: LEANDRA OCAMPO Rep #: [id number] : 1955 Provider: Dr. Guido Sharma MD Age/Sex: 68/F Location: [facility] Status: Signed Intake Vital Signs 07/13/2408:15 Height 5 ft Weight: 126 lb 4 oz BMI 24.6 BP 134/84 H Blood Pressure Location Rt brachial Position Sitting Respiration 17 Pulse 78 Pulse Source Monitor Temp 97.6 F L Temp Source Temporal Pulse Oximetry (%) 100 Oxygen Delivery Method room air Intake Visit Reasons: 3WK F/U 2/2 Abnormal Hida Scan Results Chief Complaint: abnormal Hida Scan Results 3 wk f/u Is patient in pain?: No Allergies minocycline Allergy (Verified 08/03/23 12:56) Otherazithromycin [From Zithromax Z-Victor M] Adverse Reaction (Mild, Verified 08/03/23 12:56) Upset Stomach Medications acetaminophen 500 mg oral powder packet (Tylenol Extra Strength) 500 mg PO Q4H PRN 07/13/23 [History Confirmed 08/03/23] clindamycin phosphate 1 % topical solution 1 applic topical DAILY 07/13/23 [History Confirmed 08/03/23] metronidazole 0.75 % topical cream 1 applic topical BID 07/13/23 [History Confirmed 08/03/23] sodium sulfacetamine8% sulfur4% topical 07/13/23 [History Confirmed 08/03/23] amoxicillin 500 mg capsule 500 mg PO DAILY 08/03/23 [History Confirmed 08/03/23] PFSH Surgical History H/O dilation and curettage H/O removal of cyst H/O tubal ligation Family History (Updated 07/13/23 @ 09:15 by Tash Thao LPN) Daughter AsthmaMother Arthritis Osteoporosis Skin cancer CVA (cerebral vascular accident)Father Bladder cancer Kidney diseaseSon Diabetes Social History (Updated 07/13/23 @ 09:15 by Tash Thao LPN) Smoking Status: Never smoker alcohol intake: never substance use type: does not use HPI HPI HPI: Patient is a 68-year-old female who presents for recent abnormal HIDA imaging. This is her second consultation visit. They are referred for surgical consultation from Dr. Coffman. Patient presents today again with her and daughter. Mrs. Ocampo states that she was able to be relieved of her TLSO brace and of last week. She shared her therapy starts next week. She has completed a very detailed food diary, but states that she has not been able to necessarily discern any themes or trends and has asked her daughter to read thisto distill the content. Her daughter shares that the only thing she was necessarily able to glean is that the twitching sensation that her mother experiences seems to occur in the evenings. Her mother shares that this is if there is a threaded needle in her rib cage of the right side. Yet they also report that she has become rather unrestricted with her diet and has included things such as pineapple chicken pizza and hdz fried walleye (multiple meals a piece) without any subsequent abdominal pain or nausea. Her daughter notes thather mother has complained of some burping or extra gas. Mrs. Ocampo confirms that there is been some heartburn/reflux that required Tums but she estimates this to be no more than 3-4 times since her last visit. Below is recapitulated from patient's prior visit for ease of review: There is a long story about a ground-level fall on May 15 that resulted in anumber of T-spine fractures and placed patient in a TLSO brace for the interim. She suggests that her right upper quadrant discomfort began alongside of her fall?related pains. She shares that the pain is primarily on the side. The pain seems to course from her breastbone to the right. In addition to this painshe noted some associated loss of taste foods but despite repeated testing she has never been positive for COVID. She suggest that the frequency is actually decreased with which she experiences this pain. She notes that previously she experienced on daily basis but now estimates it occurs maybe 3-4 times per week. She shares that she is extremely conscientious for what she is eating and is intentionally avoiding any fatty or spicy foods to avoid aggravating her gallbladder. She denies any associated nausea. Her current diet is rather limited but consists of many weeks for breakfast, a boiled beef bernard with baked Omani fries for lunch and chicken with baked potatoes and butter/olive oil for dinner. With taking this diet she is uncertain whether or not it is triggered any exacerbation of her pain. She underwent ultrasound imaging of thegallbladder on 05/22/2023 which was unremarkable and failed to show even gallstones. HIDA imaging was then performed on 06/19/2023 and was read as abnormal due to a calculated ejection fraction post CCK administration of 23%. ROS General General: Yes weight change (loss- ten pounds ) Endo Additional Details: thyroid nodules Skin Skin: Yes changing moles Musc Musculoskeletal: Yes back problems Additional Details: T6/T9 fracture Cardio Cardiovascular: Yes murmur Psych Psychiatric: Yes depression and anxiety Gastro Gastrointestinal: Yes hemorrhoids and Yes gallbladder problem Exam Const General: cooperative and anxious Orientation: alert, awake and oriented x3 Resp Effort & Inspection: normal respiratory effort GI Other: Nondistended, soft, nontender to palpation x 4 quadrants. Negative Díaz sign. Assessment and Plan Assessment and Plan (1) Right upper quadrant abdominal pain: Status: Acute Comment: Patient is a 68-year-old female presents with 2-month history of right upper quadrant abdominal discomfort. She does note that this discomfort seems primarily located on the lateral aspect of her thoracoabdominal region. It is not clearly associated with food nor are there time of day or position associations that she has been able to determine. With this nonspecific abdominal discomfort she has undergone workup for possible gallbladder relation and had a normal right upper quadrant ultrasound but HIDA was read as abnormal due to a low ejection fraction. Based on the nonspecific description it is difficult for me to truly elicit whether or not her pain is related to the gallbladder. I have suggested that she begin to keep a food diary and a pain diary to determine if there is any correlation between the 2. I would then liketo follow-up with her in 2 to 3 weeks to assess her findings. In the interim I suggested the differential also would include some form of peptic ulcer disease or other upper GI?related pathology. We discussed the possibility of proceedingwith a EGD exam if she is not fully inclined toward surgery or there is some doubt as to the pains connection to the gallbladder. Update: Patient all but denies recurrence of her abdominal pain despite on restricting her diet. Therefore, I find this to be unlikely related to gallbladder disease. She is reporting some reflux and bloating symptoms. Thus,I have recommended consideration of a EGD with biopsy for possible H. pylori. Patient is reluctant but receptive. Plan: EGD with biopsy (2) Abnormal biliary HIDA scan: Status: Acute Comment: Patient with ejection fraction of 23% post CCK administration. I have been careful to thoroughly outlined the significance of these findings and share with her that this does qualify as biliary dyskinesia, however, I also shared with her that this is not a diagnosis that should be regarded alongside of cholecystitis?in the sense that her in action could lead her to severe illness. This was done as a way of reassurance. Patient is very reluctant to undergo medical procedures of any kind. Many questions were answered from both her and her family. We have resolved to conduct a follow-up visit after a thorough recording of her dietary habits and any additional details she can provide abouther pain complaints. (See above) Update: As above, patient's history and exam are unconvincing for gallbladder etiology. Therefore, I am not inclined to pursue cholecystectomy at this time but have provided patient with red flag warning symptoms of gallbladder inflammation. She asked what the likelihood of is for progression of her gallbladder dysfunction and I answered her frankly that it would be nearly impossible to prognosticate based on the sheer number of variables (3) Acid reflux: Status: Acute Comment: Patient remarks of numerous reflux symptoms in the 3 weeks since our last visit. She also complains of some associated fullness. She has never undergone prior endoscopy and does report some symptomatic improvement with Tums. Therefore I have recommended consideration of EGD with biopsy for H. pylori. Plan: Diagnostic EGD (4) Bloating symptom: Status: Acute Comment: This is an associated symptom patient's reflux and upper abdominal discomfort. Recommending EGD with biopsy for rule out H. pylori (5) Screening for colon cancer: Status: Acute Comment: Patient generally describes normal bowel habits but is never undergone colon cancer screening with colonoscopy. Thus, given her indications for diagnostic EGD as outlined above I am recommending we proceed for a screening colonoscopy at the same time. Patient is reluctant but prompted by both her and laquita to proceed as recommended. I discussed a 2-day bowel prep and the general procedure. Plan: Plan will be to complete colonoscopy on first mutually agreeable date under local MAC. Pre-procedure prep discussed and paper instructions provided. Patient is also made aware that she will need to have a tractor driver teamster with her the day of the procedure. I have examined the patient and the H&P has been reviewed. There are no clinicalchanges since date of exam. Patient reports that she has had minimal right upper quadrant discomfort with an unrestricted diet. She does share that she had some difficulty with her bowel prep and GI upset with nausea but after calling the physician?on-call line her symptoms spontaneously abated and she didnot require the recommended Zofran. She does confirm that her output is now clear so we will plan to proceed to the endoscopy suite for upper and lower endoscopy as discussed in greater detail above. 09/20/23 0948 <Electronically signed by Guido Sharma MD> Cosigner Signature (if applicable): CC: Dr. Shayne Diaz MD; Dr. Guido Sharma MD~ Signed [facility] Work Phone: 1(849) 791-770404-11-2024 Procedure [facility] 09-20-2023 Procedure [facility]04-11-2024 Procedure note [facility]04-11-2024 Procedure [facility] 05-15-2023 Discharge summary Author Guzman Layne [facility] May 15, 2023 11:23am Note Date/Time May 15, 2023 7 :21am [facility] Medical Records Department [address] [place] [address] Emergency Department Summary 05/15/23 MR#: [id number] Acct: [id number] Name: LEANDRA OCAMPO Rep #:[id number] : 1955 67 From: Guzman Layne MD PCP: Gabriela Coffman, Status:REG E R Location: ED HPI HPI - Fall History of Present Illness Chief Complaint: Fall Informant: patient, family and EMS Occured/Mechanism Occurred: Today (Just prior to arrival) Narrative Narrative: Patient woke up and was coming down the stairs, she felt lightheaded and then does not remember the fall, but apparently passed out and fell down 3 steps to the landing below. She denies remembering any other prodromal symptoms other than the lightheadedness. She states she feels like she hurt her mid and low back but denies any other injuries. states she has a bruise on her right shoulder, and there was a chunk of hair on the railing or something nearbywhere she fell. She has cataract surgery coming up and has been feeling anxiousabout it, and so her doctor prescribed her sertraline because of that and she took the first pill last night. In addition, her appetite has been very poor lately and so is her oral intake. She is on no anticoagulants for any reason, does not feel like she hit her head, no history of DVT or PE that she knows of, no recent immobilization, hospitalization, or surgery. No history of heart problems that she knows of. Most of her medical issues in the past focused around vitamin deficiencies. [facility] Medical History no medical history no medical history Home Medications sertraline 50 mg tablet 50 mg PO Q24H 05/15/23 [History Last Taken Unknown] tramadol 50 mg tablet 50 mg PO Q6H PRN pain 3 days #12 tabs 05/15/23 [Rx Last Taken Unknown] Allergy/AdvReac Type Severity Reaction Status Date / Time minocycline Allergy Other Verified 05/15/23 07:04 azithromycin AdvReac Mild Upset Verified 05/15/23 07:04 [From Zithromax Z-Victor M] Stomach Social History Smoking Status: Never smoker ROS ROS ED Constitutional Constitutional ED: Reports anorexia; Denies chills or fever(s) Eyes Eyes: Denies change in vision or diplopia ENT ENT ED: Denies ear pain, epistaxis, facial pain or rhinorrhea Cardiovascular Cardiovascular: Denies chest pain or palpitations Respiratory/Chest Respiratory/Chest: Denies cough or dyspnea Gastrointestinal Gastrointestinal: Denies abdominal pain, diarrhea, melena, nausea or vomiting Genitourinary Genitourinary ED: Denies dysuria or hematuria Musculoskeletal Musculoskeletal: Reports back pain; Denies extremity pain or neck pain Integumentary Denies abscess, Abrasions, laceration or rash Neurologic Neurologic: Denies confusion, headache(s), paresthesias or weakness EXAM Physical Exam Const Vital Signs: 05/15/23 07:00 05/15/23 07:04 05/15/23 08:00 Temperature 97 F L Temperature Source Temporal Pulse Rate 83 103 H Respiratory Rate 13 26 H Respiratory Effort Normal Non-Labored Respiratory Depth Normal Respiratory Pattern Normal Blood Pressure 129/70 H 141/81 H Blood Pressure Mean 89 101 Pulse Ox 99 97 102 Oxygen Delivery Method Room Air Room Air Room Air 05/15/23 09:10 Temperature Temperature Source Pulse Rate 82 Respiratory Rate 14 Respiratory Effort Respiratory Depth Respiratory Pattern Blood Pressure 137/73 H Blood Pressure Mean 94 Pulse Ox 96 Oxygen Delivery Method Room Air Positive well nourished and well developed General Appearance ED: well developed and NAD HEENT Reports TM's clear and nasal mucous membranes and turbinates normal atraumatic Face and Sinus: Negative for facial tenderness Tympanic Membrane ED: Yes TM's clear Eyes PERRL and EOMs intact bilaterally Visual Acuity: other Other Details: no entrapment or pain with extraocular movements Neck full ROM and supple General: Negative for tenderness Chest Wall inspection of chest normal and palpation of chest normal Chest: symmetrical chest wall rise; Negative for crepitus or tenderness Resp normal respiratory effort and clear to auscultation bilaterally Percussion: other equal BS bilat Cardio no murmurs Rate: regular rate; Negative for bradycardia or tachycardic Rhythm: regular rhythm GI normal to inspection, nondistended, normoactive bowel sounds, soft to palpation and non-tender Back/Spine Cervical Spine: Negative for cervical spine tenderness Thoracic Spine / Upper Back: thoracic spinal tenderness other (No objective signof trauma or step-off. Tender through most of the mid and lower thoracic midline mildly.) Lumbar Spine / Lower Back: lumbar spinal tenderness L1 (Mild no signs of trauma or step-off) Extremity normal to inspection and full ROM Extremity Narrative: Intact 2+ dorsalis pedis and radial pulses bilaterally General Extremety ED: Negative for tenderness Neuro oriented x3, CN's II-XII intact bilaterally, moves all extremities, no focal motor deficits and no sensory deficits noted Nyla Coma Scale: document GCS findings Spontaneous Obeys Commands Oriented 15 Sensorium / Orientation: awake and alert Psych mental status grossly normal and thought process normal Skin no wounds Lesions: no lesions Rashes: no rashes MDM MDM MDM Narrative Medical decision making narrative: Patient's injury seems to only be her back. She has a mild tenderness in the right trapezius muscle with there is no bony prominence, she has full range of motion of all joints of all 4 extremities including her right shoulder so I am at a low suspicion for major joint injury anywhere. Differential for the cause of her fall includes dehydration, medication reaction since she took her first dose of sertraline before she went to bed last night, pulmonary embolus, dysrhythmia, acute RI, symptomatic anemia, symptomatic bradycardia. This is notan exclusive list. Labs, chest x-ray were obtained in addition to an EKG which is normal, chest x-ray 1 view on my interpretation normal, she has no tendernesswhen I palpate the ribs or compress the rib cage laterally, however when she wasgetting EKG she told the outboard technician and me later that her left chest was bothering her a little, fairly nondescript and not severely, nonpleuritic. Although she tumbled down several steps and has some contusions, I did a D-dimerin order to try to rule out pulmonary embolus, but it came back significantly elevated over 10. Therefore even though we sent her for CT of the head, we senther back for CTA of the chest in order to rule out pulmonary embolus and also evaluate for any occult injuries in the left hemithorax. Prior to that thoracicand lumbar x-rays were obtained, 2 views of the thoracic spine on my interpretation is positive for fracture of T9, 3 views of the lumbar spine on myinterpretation is negative for fracture. She was offered analgesics and declined. CT of the head was obtained in order to rule out intracranial injury, I reviewedthe images and report which I agree with, negative for anything acute. CTA of the chest images I reviewed, I agree with the report as well, basically shows the T9 compression fracture, and no other intrathoracic injury and no evidence of a pulmonary embolus as etiology for her syncope episode. She eventually excepted some ibuprofen for pain, before that we got her up and she was a little wobbly so we waited a while The second troponin which was negative, she got the ibuprofen and then she stood up with family and she did very well and felt fine and ready to go home. She was offered admission but declined. Will have her follow-up with spine as an outpatient, she was given lifting and bending restrictions until then, and she is comfortable with that plan. We discussed options for prescription she would like a prescription for tramadol, we discussed the unlikely potential for altered mental status and reasons to stop it, she can also take [id number] medications and other methods of supportive care in the meantime Lab Data Attestation: I reviewed the patient's lab results. Labs: Laboratory Results - last 24 hr 05/15/23 05/15/23 07:05 09:40 WBC 7.4 RBC 4.82 Hgb 14.4 Hct 42.2 MCV 87.6 MCH 29.9 MCHC 34.1 RDW Std Deviation 39.6 RDW Coeff of Luis Manuel 12.5 Plt Count 259 MPV 10.4 Immature Gran % (Auto) 1.300 H Neut % (Auto) 63.7 Lymph % (Auto) 21.5 [place] % (Auto) 7.8 Eos % (Auto) 5.0 Baso % (Auto) 0.7 Absolute Neuts (auto) 4.7 Absolute Lymphs (auto) 1.60 Nucleated RBC % 0 D-Dimer Quant (PE/DVT) 10.65 H* Sodium 140 Potassium 4.0 Chloride 109 H Carbon Dioxide 27.0 Anion Gap 4 L BUN 18 Creatinine 0.81 Estim Creat Clear Calc 68.34 Est GFR (MDRD) Af Amer 90 Est GFR (MDRD) Non-Af 74 BUN/Creatinine Ratio 22.1 H Glucose 129 H Calcium 9.3 Troponin I High Sens 6 7 Radiography Diagnostic Testing: Clinical Impression(s) from Imaging Studies Brain CT 05/15/23 07:15 IMPRESSION: No CT evidence of acute intracranial hemorrhage or injury. Mild atherosclerosis. Electronically Signed: Noah Barrett MD at 7:58 EST , Chest X-Ray 05/15/23 07:35 IMPRESSION: Degenerative changes, as described above. No demonstrated acute cardiopulmonary process. Electronically Signed: John Madison MD at 8:06 EST , Lumbar Spine X-Ray 05/15/23 07:35 IMPRESSION: Degenerative changes of the spine, as detailed above. Electronically Signed: John Madison MD at 8:38 EST , Thoracic Spine X-Ray 05/15/23 07:35 IMPRESSION: 1. There is a mild acute compression fracture T9 vertebral body with 20% loss of height and slight cortical offset/displacement. No additional acute fractures or compression deformities are present. Electronically Signed: John Madison MD at 8:36 EST , Chest CTA 05/15/23 08:05 IMPRESSION: 1. An acute compression fracture of the T9 vertebral body with mild cortical offset and with approximately 20% loss of height is present. No additional acute vertebral body or posterior element fractures are seen. 2. Negative CTA chest examination, without a demonstrated pulmonary embolism or arterial dissection. Electronically Signed: John Madison MD at 9:11 EST , Rhythm Strip Rhythm Strip: Sinus Rhythm Rate: 85 Ectopy: None EKG Initial EKG: Attestation: I personally reviewed and interpreted this EKG as follows: Interpretation: Sinus Rhythm and No Acute Injury Pattern (nml EKG) Discharge Plan Triage Chief Complaint: Fall ED Provider: Guzman Layne Dx/Rx/DC Orders Clinical Impression: Compression fracture of T9 vertebra, Fall down steps, Contusion of upper back, Syncope, Mild dehydration Instructions: Compression Fx Prescriptions: New tramadol 50 mg tablet 50 mg PO Q6H PRN (Reason: pain) 3 Days Qty: 12 0RF No Action sertraline 50 mg tablet 50 mg PO Q24H Primary Care Provider: Gabriela Coffman Referrals: Davy Chan DO [Med Staff - Active Staff] - As soon as possible Gabriela Coffman DO [Primary Care Provider] - 5-7 Days Activity Restrictions/Additional Instructions: Tylenol 650-1000 mg every 4-6 hours as needed for pain Ibuprofen 400-600 mg every 6-8 hours as needed for pain May add the tramadol to this as prescribed as needed. Ice to affected area as needed for pain. No lifting more than 5-10 pounds, limit how much you bend over to pick somethingup. Use pain as your guide and limit activities if it hurts. Disposition Disposition: Home, Self Care What to do if you have Problems For any increased pain, shortness of breath, bleeding, nausea or vomiting, chestpain, or any unexpected problems, contact your Primary Care Provider. Call [facility] ([phone]) or report to the closest Emergency Room. Call 911 if necessary. 05/15/23 1123 <Electronically signed by Guzman Layne MD> Cosigner Signature (if applicable): CC: Dr. Davy Chan, DO; Gabriela Coffman, DO ~ Signed [facility] Work Phone: [phone] Hospital Discharge instructions Additional Instructions Tylenol 650-1000 mg every 4-6 hours as needed for pain Ibuprofen 400-600 mg every 6-8 hours as needed for pain May add the tramadol to this as prescribed as needed. Ice to affected area as needed for pain. No lifting more than 5-10 pounds, limit how much you bend over to pick something up. Use pain as your guide and limit activities if it hurts.[facility] Work Phone: Evaluation noteNo assessment information available [facility] Work Phone: Evaluation note* Diagnosis Onset Date Resolution Status Abnormal biliary HIDA scan a cute Right upper quadrant abdominal pain acute Abnormal biliary HIDA scan a cute Acid reflux acute Bloating symptom acute Right upper quadrant abdominal pain acute Screening for colon cancer [facility] Work Phone: Reason for referral (narrative)No reason for referral information availableW[facility] Work Phone: Chief Complaint and Reason for Visit Chief Complaint SCREENING Chief Complaint fall Chief Complaint fall Nausea ABD PAIN Abnormal Hida Scan Results 3WK F/U 2/2 Abnormal Hida Scan Results Reason for Visit Abnormal biliary HID A scan Right upper quadrant abdominal pain Abnormal biliary HIDA scan Acid reflux Bloating symptom Right upper quadrant abdominal pain Screening for colon cancer Chief Complaint ABD PAIN Abnormal Hida Scan Results 3WK F/U 2/2 Abnormal Hida Scan Results Reason for Visit Abnormal biliary HID A scan Right upper quadrant abdominal pain Abnormal biliary HIDA scan Acid reflux Bloating symptom Right upper quadrant abdominal pain Screening for colon cancer Chief Complaint fall Nausea Chief Complaint Admit Date 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, 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 1 :22pm NEW-LUMP LEFT BREAST May 14, 2024 2:54pm DISCUSS GALLBLADDER ISSUES June 16, 2024 10:12am DISCUSS GALLBLADDER ISSUES July 08, 2024 9:39am Reason for Visit Admit Date 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 May 14, 2024 1:22pm Encounter for annual routine gynecologic al examination May 14, 2024 1:22pm 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 May 14, 2024 2:54pm Abnormal biliary HIDA scan June 16, 2024 10:12am Malaise June 16, 2024 10 :12am Nausea June 16, 2024 10 :12am Poor appetite June 16, 2024 10 :12am Abnormal biliary HIDA scan July 08, 2024 9:39am Malaise July 08, 2024 9 :39am Nausea July 08, 2024 9 :39am Poor appetite July 08, 2024 9 :39am Chief Complaint Admit Date DISCUSS GALLBLADDER ISSUES July 08, 2024 9:39am Reason for Visit Admit Date Abnormal biliary HIDA scan July 08, 2024 9:39am Malaise July 08, 2024 9 :39am Nausea July 08, 2024 9 :39am Poor appetite July 08, 2024 9 :39am Chief Complaint Admit Date FU November 25, 2024 8:26 am Advance Directives No Advanced Directives Records Found Advance Directive Response Recorded Date/ Time Living Will Yes May 15 7:21am Power of Radio Producer Yes May 15, 2023 7:21am Name of Medical Power of Radio Producer May 15, 2023 7:21am Advance Directive Response Recorded Date/ Time Name of Medical Power of Radio Producer May 15, 2023 8:21am Living Will Yes May 15 8:21am Power of Radio Producer Yes May 15, 2023 8:21am Advance Directive Response Recorded Date/ Time Name of Medical Power of Radio Producer FABI OCAMPO September 18, 2023 12:50pm Living Will Yes September 18, 2023 12:50pm Power of Radio Producer Yes September 17 12:50pm Advance Directive Response Recorded Date/ Time Living Will Yes January 20 3:50pm Do you have a Healthcare Power of Radio Producer? Yes January 21, 2024 3:50pm Family History No Family History Records Found Relationship Condition Age at Onset Recorded Date/T homa daughter Asthma Unknown mother Arthritis Unknown Osteoporosis Unknown Malignant neoplasm of skin Unknown Cerebrovascular accident (CVA) Unknown father Malignant neoplasm of urinary bladder Unk nown Kidney disorder Unknown son Diabetes mellitus Unknown Relationship Condition Age at Onset Recorded Date/T homa daughter Asthma Unknown mother Arthritis Unknown Osteoporosis Unknown Malignant neoplasm of skin Unknown Cerebrovascular accident (CVA) Unknown father Malignant neoplasm of urinary bladder Unk nown Kidney disorder Unknown son Diabetes mellitus Unknown grandmother Diabetes mellitus Unknown Asthma Unknown grandfather Cerebrovascular accident (CVA) Unknown Arthritis Unknown aunt Malignant neoplasm of breast Unknown Summary Purpose Additional Source Comments Goals (unrecognized section and content) Goals may be documented in a n alternate sectionGoals may be documented in an alternate sectionGoals may be documented in an alternate sectionGoals may be documented in an alternate sectionGoals may be documented in an alternate sectionGoals may be documented in an alternate sectionGoals may be documented in an alternate sectionGoals may be documented in an alternate sectionGoals may be documented in an alternate sectionGoals may be documented in an alternate sectionGoals may be documented in an alternate sectionGoals may be documented in an alternate sectionGoals may be documented in an alternate section Care Teams (unrecognized sec tion and content) Team Status: Active Member Role Status Dates Dr. Brett Garcia MD Family Provider Active Dr. Hung Saldana MD Primary Care Provider Active Team Status: Inactive Member Role Status Dates Dr. Hung Saldana MD Primary Care Provider, Referring Provider Active Gabriela Coffman DO Attending Provider Active Team Status: Inactive Member Role Status Dates Dr. Hung Saldana MD Primary Care Provider Active Lesli Lemus NP, FOIL SPOOLER-C Attending Provider Active Team Status: Active Member Role Status Dates Dr. Brett Garcia MD Family Provider Active Gabriela Coffman DO Primary Care Provider Active Team Status: Inactive Member Role Status Dates Gabriela Coffman DO Primary Care Provider, Attending Provider Active Team Status: Inactive Member Role Status Dates Gabriela Coffman DO Primary Care Provider Active Shayne Diaz MD Attending Provider Active Team Status: Inactive Member Role Status Dates Gabriela Coffman DO Primary Care Provider Active Jaimee Hernandez NP-C Attending Provider, Referring Provi shefali Active Team Status: Inactive Member Role Status Dates Gabriela Coffman DO Primary Care Provider Active Dr. Guzman Layne MD Referring Provider, Emergency Provider Active Team Status: Inactive Member Role Status Dates Gabriela Coffman DO Primary Care Provider, Referring Provider Active Dr. Guido Sharma MD Attending Provider Active Team Status: Inactive Member Role Status Dates Gabriela Coffman DO Primary Care Provider Active Dr. Guzman Layne MD Attending Provid er, Referring Provider, Emergency Provider Active Team Status: Inactive Member Role Status Dates Gabriela Coffman DO Primary Care Provider Active Dr. Tess Drake MD Attending Provider, Referring P rovider Active Team Status: Inactive Member Role Status Dates Gabriela Coffman , DO Primary Care Provi shefali, Attending Provider, Referring Provider Active Team Status: Inactive Member Role Status Dates Gabriela Coffman , DO Primary Care Provider Active Shayne Diaz MD Attending Provider, Referring Provide r Active Team Status: Active Member Role Status Dates Dr. Brett Garcia MD Family Provider Active Shayne Diaz MD Primary Care Provider Active Team Status: Active Member Role Status Dates Dr. Guido Sharma MD Attending Provider, Other Provi shefali Active Shayne Diaz MD Primary Care Provider, Referring Prov ider Active Team Status: Inactive Member Role Status Dates Dr. Guido Sharma MD Attending Provider Active Shayne Diaz MD Primary Care Provider, Referring Prov ider Active Team Status: Inactive Member Role Status Dates Shayne Diaz MD Referring Provider Active Start : May 14, 2024 End: May 14, 2024 TAYO Gil Attending Provider Active Start: May 14, 2024 End: May 14, 2024 Team Status: Inactive Member Role Status Dates Dr. Rosana Goldsmith MD Attending Provider Active Start: May 14, 2024 End: May 14, 2024 Team Status: Active Member Role Status Dates Dr. Rosana Goldsmith MD Attending Provider Active Start: May 14, 2024 Dr. Rosana Goldsmith MD Referring Provider Active Start: May 14, 2024 Team Status: Inactive Member Role Status Dates Dr. Hung Saldana MD Attending Provider Active Start: June 12, 2024 End: June 12, 2024 Team Status: Inactive Member Role Status Dates Dr. Guido Sharma MD Attending Provider Active Start: June 16, 2024 End: June 16, 2024 Team Status: Inactive Member Role Status Dates Dr. Guido Sharma MD Attending Provider Active Start: July 08, 2024 End: July 08, 2024 Team Status: Inactive Member Role Status Dates Shayne Diaz MD Primary Care Provider Active St art: July 15, 2024 End: July 15, 2024 Shayne Diaz MD Attending Provider Active Start : July 15, 2024 End: July 15, 2024 Shayne Diaz MD Referring Provider Active Start : July 15, 2024 End: July 15, 2024 Team Status: Inactive Member Role Status Susan Diaz MD Primary Care Provider Active St art: August 29, 2024 End: August 29, 2024 Shayne Diaz MD Attending Provider Active Start : August 29, 2024 End: August 29, 2024 Shayne Diaz MD Referring Provider Active Start : August 29, 2024 End: August 29, 2024 Team Status: Inactive Member Role Status Susan Diaz MD Primary Care Provider Active St art: October 29, 2024 End: October 29, 2024 Dr. Aaron Roberts MD Attending Provider Activ e Start: October 29, 2024 End: October 29, 2024 Dr. Aaron Roberts MD Referring Provider Activ e Start: October 29, 2024 End: October 29, 2024 Team Status: Inactive Member Role Status Susan Diaz MD Primary Care Provider Active St art: November 25, 2024 End: November 25, 2024 Shayne Diaz MD Referring Provider Active Start : November 25, 2024 End: November 25, 2024 Dr. Mandeep Ryan DO Attending Provider Active Start: November 25, 2024 End: November 25, 2024 INFORMATION SOURCE (unrecogn ized section and content) DATE CREATED AUTHOR 02/17/2025 [facility] FOR RECORDS PERTAINING TO PATIENTS WHO ARE OR HAVE BEEN ENROLLED IN A CHEMICAL DEPENDENCY/SUBSTANCEABUSE PROGRAM, SOME INFORMATION MAY BE OMITTED. This clinical summary was aggregated from multiple sources. Caution should be exercised in using it in the provision of clinical care. This summary normalizes information from multiple sources, and as a consequence, information in this document may materially change the coding, format and clinical context of patient data. In addition, data may be omitted in some cases. CLINICAL DECISIONS SHOULD BE BASED ON THE PRIMARY CLINICAL RECORDS. [employer] [facility]. provides no warranty or guarantee of the accuracy or completeness of information in this document.
[2025-02-19] MEDS: Lactated Ringers 1,000 ML 15 ML IV (06:12)
--- NOTE | 2025-02-19 06:16 | PCM.PRE.AN2 ---
ASA Classification* ASA Classification ASA Classification: 2 Assessment & Plan Anesthesia* Anesthesia Assessment Anesthesia Assessment: Discussed sedation and/or anesthesia options, risks, benefits, and alternatives with patient/parents/legal guardian/POA. Questions invited. The patient/parents/legal guardian/POA seems to understand and agrees to proceed with anesthesia plan. Reviewed the physical assessment, medical history, allergy history and patient home medications list prior to surgery/procedure/anesthetic and documented any changes. Performed airway and anesthesia risk assessments. Anesthesia Type Anesthesia Type: MAC History Source History Obtained from:: Patient and Chart Anesthesia Focused Assessment* Temperature: 97.5 F Pulse Rate: 71 Blood Pressure: 134/67 Respiratory Rate: 16 Pulse Ox: 100 Oxygen Delivery Method: Room Air Airway Assessment Mouth opens: >3 cm Mallampati Score: II Teeth Condition: Intact Labs Anesthesia Preop lab: CBC WBC 5.8 K/mm3 (4.4-11.0) 06/12/24 11:17 06/12/24 RBC 5.08 M/mm3 (4.2-5.4) 06/12/24 11:17 06/12/24 Hgb 15.5 g/dL (12.0-15.0) H 06/12/24 11:17 06/12/24 Hct 45.5 % (37-47) 06/12/24 11:17 06/12/24 Plt Count 259 K/mm3 (150-450) 06/12/24 11:17 06/12/24 CHEMISTRY Potassium 3.9 mmol/L (3.5-5.1) 06/12/24 11:17 06/12/24 Sodium 140 mmol/L (136-145) 06/12/24 11:17 06/12/24 Magnesium 2.3 mg/dL (1.6-2.6) 07/15/24 14:44 07/15/24 BUN 16 mg/dL (7-18) 06/12/24 11:17 06/12/24 Creatinine 0.99 mg/dL (0.55-1.02) 06/12/24 11:17 06/12/24 Glucose 155 mg/dL (74-106) H 06/12/24 11:17 06/12/24 TSH 1.330 uIU/mL (0.358-3.740) 06/12/24 11:17 06/12/24 COAG Pre-Assessment Diagnosis/Proposed Procedure Planned Operative Procedure(s): COLONOSCOPY, EGD FULLER Anesthesia History 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 When Was Last Pacemaker Check QUESTION #4 FULL TEXT: You/Your Family Experience fever (hyperthermia) with Anesthesia Any additional information?: No Last Oral Intake Last Oral intake: Last Oral Intake NPO since 03:15 02/19/25 05:55 Meds taken in AM with sips of No 02/19/25 05:55 water? Meds patient instructed to take am of surgery PONV PONV - granite setter: PONV - granite setter Female Yes 02/16/25 16:01 HX of Motion Sickness No 02/16/25 16:01 HX of N/V After Surgery No 02/16/25 16:01 Non-Smoker Yes 02/16/25 16:01 Duration of Surgery greater No 02/16/25 16:01 than 60 minutes Number of Risk Factors 2 02/16/25 16:01 PONV Score Moderate Risk 02/16/25 16:01 Height & Weight Height & Weight: Anesthesia: Height & Weight Height 5 ft 02/19/25 05:55 Weight: 59.965 kg 02/19/25 05:55 Body Mass Index (BMI) 25.8 02/19/25 05:55 Respiratory Assessment Respiratory Assessment - granite setter: Respiratory Tract Infection Hx - granite setter Hx Respiratory Tract Infection No 02/16/25 16:01 STOP Sleep Apnea STOP Sleep Apnea - granite setter: STOP Sleep Apnea - granite setter Hx Hypertension No 02/16/25 16:01 Hx Sleep Apnea No 02/16/25 16:01 CPAP No 02/16/25 16:01 BIPAP Do you snore loudly (louder No 02/16/25 16:01 than talking or can be heard Do you often feel tired/ No 02/16/25 16:01 fatigued/ sleepy during daytime? Has anyone observed you stop No 02/16/25 16:01 breathing during sleep? STOP Results Negative 02/16/25 16:01 QUESTION #5 FULL TEXT : Do you snore loudly (louder than talking or can be heard through closed doors)? 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 Specify any problems Hx of Preganancy in last 3 No 02/16/25 16:01 Months Nurse Filling Out Transfusion VCHRISTIN 02/16/25 16:01 & Questions: Date: 02/16/25 02/16/25 16:01 Time: 16:02 02/16/25 16:01 Patient unable to answer at this time (ie. confused, unrespo /Reproduction History /Reproductive History - granite setter: /Reproductive Hx- granite setter Hx Now No 02/16/25 16:01 Gestational Age (in weeks): EDC: Hx Hx Para Hx Section SAB No 02/16/25 16:01 Active Medications Active Medications: Current Medications Generic Name Dose Route Start Last Admin Trade Name Freq PRN Reason Stop Dose Admin Lactated Ringer's 1,000 mls @ 15 mls/hr 02/19/25 05:45 02/19/25 06:12 IV 15 mls/hr .Q48H YUMIKO Administration PFSH Medical History Screening mammogram for breast cancer Hx of sebaceous cyst Abnormal ultrasound of breast Breast cyst Osteoporosis Wears glasses Depression Anxiety Post-menopausal Arthritis Injury of head and neck Injury of back Syncope Gastric reflux Non-smoker History of irregular heartbeat Home Medications ?Medication ?Instructions ?Recorded ?Last Taken ?Type metronidazole 0.75 % topical cream 1 applic topical BID 07/13/23 02/19/25 History sulfacetamide sodium-sulfur 8 %-4 1 applic topical DAILY 01/21/24 02/19/25 History % topical suspension alendronate 70 mg tablet 70 mg PO MILLER 04/07/24 02/15/25 History omeprazole 40 mg capsule,delayed 40 mg PO QDAY #30 caps 10/16/24 02/12/25 Rx release Allergy/AdvReac Type Severity Reaction Status Date / Time minocycline Allergy Other Verified 02/19/25 05:50 azithromycin (From Zithromax AdvReac Mild Upset Verified 02/19/25 05:50 Z-Victor M) Stomach Family History Daughter Asthma Mother Arthritis Osteoporosis Skin cancer CVA (cerebral vascular accident) Father Bladder cancer Kidney disease Son Diabetes Grandmother Diabetes Asthma Grandfather CVA (cerebral vascular accident) Arthritis Aunt Breast cancer Surgical History History of cataract extraction S/P breast biopsy, left Hx of breast biopsy Hx of colonoscopy H/O tubal ligation H/O removal of cyst H/O dilation and curettage Social History Smoking Status: Never smoker alcohol intake: never substance use type: does not use Review of Systems (Anesthesia) ROS Narrative System reviewed and no additional complaints, except as documented. Physical Exam Const alert and oriented x3
--- NOTE | 2025-02-19 06:27 | PRE.ANES_ITS ---
ASA Classification* ASA Classification ASA Classification: 2 Assessment & Plan Anesthesia* Anesthesia Assessment Anesthesia Assessment: Discussed sedation and/or anesthesia options, risks, benefits, and alternatives with patient/parents/legal guardian/POA. Questions invited. The patient/parents/legal guardian/POA seems to understand and agrees to proceed with anesthesia plan. Reviewed the physical assessment, medical history, allergy history and patient home medications list prior to surgery/procedure/anesthetic and documented any changes. Performed airway and anesthesia risk assessments. Anesthesia Type Anesthesia Type: MAC History Source History Obtained from:: Patient and Chart Anesthesia Focused Assessment* Temperature: 97.5 F Pulse Rate: 71 Blood Pressure: 134/67 Respiratory Rate: 16 Pulse Ox: 100 Oxygen Delivery Method: Room Air Airway Assessment Mouth opens: >3 cm Mallampati Score: I Teeth Condition: Caps/Crowns (Patient has several crowns. They are tight.) Neck Range of motion (ROM): Limited ROM (Slight Decrease) Labs Anesthesia Preop lab: CBC WBC 5.8 K/mm3 (4.4-11.0) 06/12/24 11:06/12/24 RBC 5.08 M/mm3 (4.2-5.4) 06/12/24 11:17 06/12/24 Hgb 15.5 g/dL (12.0-15.0) H 06/12/24 11: 5 Hct 45.5 % (37-47) 06/12/24 11:17 06/12/24 Plt Count 259 K/mm3 (150-450) 06/12/24 11:17 06/12/24 CHEMISTRY Potassium 3.9 mmol/L (3.5-5.1) 06/12/24 11:17 06/12/24 Sodium 140 mmol/L (136-145) 06/12/24 11:17 06/12/24 Magnesium 2.3 mg/dL (1.6-2.6) 07/15/24 14:44 07/15/24 BUN 16 mg/dL (7-18) 06/12/24 11:17 06/12/24 Creatinine 0.99 mg/dL (0.55-1.02) 06/12/24 11:17 06/12/24 Glucose 155 mg/dL (74-106) H 06/12/24 11:17 06/12/24 TSH 1.330 uIU/mL (0.358-3.740) 06/12/24 11:17 08/05 COAG Pre-Assessment Diagnosis/Proposed Procedure Planned Operative Procedure(s): COLONOSCOPY, EGD FULLER Anesthesia History Anesthesia History - fondant puff maker: Anesthesia History - fondant puff maker Hx Hospitalization No 02/16/25 16:01 Any Problems With Anesthesia Yes: N,V 02/16/25 16:01 Cholinesterase deficiency No 02/16/25 16:01 You/Your Family Experience No 02/16/25 16:01 fever (hyperthermia) with Relationship Recent Exposure to Contagious No 02/19/25 05:53 Disease Does patient have nerve No 02/16/25 16:01 stimulator Patient instructed to have device shut off --Does patient have Pacemaker No 02/19/25 05:55 or ICD? When Was Last Pacemaker Check QUESTION #4 FULL TEXT: You/Your Family Experience fever (hyperthermia) with Anesthesia Last Oral Intake Last Oral intake: Last Oral Intake NPO since 03:15 02/19/25 05:55 Meds taken in AM with sips of No 02/19/25 05:55 water? Meds patient instructed to take am of surgery Any additional information?: Yes NPO since: 03:15 (Patient water at 3:15 AM.) Meds taken in AM with sips of water?: No PONV PONV - fondant puff maker: PONV - fondant puff maker Female Yes 02/16/25 16:01 HX of Motion Sickness No 02/16/25 16:01 HX of N/V After Surgery No 02/16/25 16:01 Non-Smoker Yes 02/16/25 16:01 Duration of Surgery greater No 02/16/25 16:01 than 60 minutes Number of Risk Factors 2 02/16/25 16:01 PONV Score Moderate Risk 02/16/25 16:01 Height & Weight Height & Weight: Anesthesia: Height & Weight Height 5 ft 02/19/25 05:55 Weight: 59.965 kg 02/19/25 05:55 Body Mass Index (BMI) 25.8 02/19/25 05:55 Respiratory Assessment Respiratory Assessment - fondant puff maker: Respiratory Tract Infection Hx - fondant puff maker Hx Respiratory Tract Infection No 02/16/25 16:01 STOP Sleep Apnea STOP Sleep Apnea - fondant puff maker: STOP Sleep Apnea - fondant puff maker Hx Hypertension No 02/16/25 16:01 Hx Sleep Apnea No 02/16/25 16:01 CPAP No 02/16/25 16:01 BIPAP Do you snore loudly (louder No 02/16/25 16:01 than talking or can be heard Do you often feel tired/ No 02/16/25 16:01 fatigued/ sleepy during daytime? Has anyone observed you stop No 02/16/25 16:01 breathing during sleep? STOP Results Negative 02/16/25 16:01 QUESTION #5 FULL TEXT : Do you snore loudly (louder than talking or can be heard through closed doors)? 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 Specify any problems Hx of Preganancy in last 3 No 02/16/25 16:01 Months Nurse Filling Out Transfusion VCHRISTIN 02/16/25 16:01 & Questions: Date: 02/16/25 02/16/25 16:01 Time: 16:02 02/16/25 16:01 Patient unable to answer at this time (ie. confused, unrespo /Reproduction History /Reproductive History - fondant puff maker: /Reproductive Hx- fondant puff maker Hx Now No 02/16/25 16:01 Gestational Age (in weeks): EDC: Hx Hx Para Hx Section SAB No 02/16/25 16:01 Active Medications Active Medications: Current Medications Generic Name Dose Route Start Last Admin Trade Name Freq PRN Reason Stop Dose Admin Lactated Ringer's 1,000 mls @ 15 mls/hr 02/19/25 05:45 02/19/25 06:12 IV 15 mls/hr .Q48H YUMIKO Administration PFSH Medical History Screening mammogram for breast cancer Hx of sebaceous cyst Abnormal ultrasound of breast Breast cyst Osteoporosis Wears glasses Depression Anxiety Post-menopausal Arthritis Injury of head and neck Injury of back Syncope Gastric reflux Non-smoker History of irregular heartbeat Home Medications ?Medication ?Instructions ?Recorded ?Last Taken ?Type metronidazole 0.75 % topical cream 1 applic topical BI D 07/13/23 02/19/25 History sulfacetamide sodium-sulfur 8 %-4 1 applic topical OLY LY 01/21/24 02/19/25 History % topical suspension alendronate 70 mg tablet 70 mg PO MILLER 04/07/24 5 History omeprazole 40 mg capsule,delayed 40 mg PO QDAY #30 cap s 10/16/24 02/12/25 Rx release Allergy/AdvReac Type Severity Reaction Status Date / Time minocycline Allergy Other Verified 02/19/25 05:50 azithromycin (From Zithromax AdvReac Mild Upset Verified 02/19/25 05:50 Z-Victor M) Stomach Family History Daughter Asthma Mother Arthritis Osteoporosis Skin cancer CVA (cerebral vascular accident) Father Bladder cancer Kidney disease Son Diabetes Grandmother Diabetes Asthma Grandfather CVA (cerebral vascular accident) Arthritis Aunt Breast cancer Surgical History History of cataract extraction S/P breast biopsy, left Hx of breast biopsy Hx of colonoscopy H/O tubal ligation H/O removal of cyst H/O dilation and curettage Social History Smoking Status: Never smoker alcohol intake: never substance use type: does not use Review of Systems (Anesthesia) ROS Narrative System reviewed and no additional complaints, except as documented.
--- NOTE | 2025-02-19 06:30 | COLBX_PTH ---
PATIENT: LEANDRA GUZMAN LOC: EN U#:[id number] AGE/SX: 69/F ROOM: RE02/19/[address]: Dr. Mandeep Ryan DO : 1955 BED: DIS: 02/19/2025 SPEC #: [id number] RECD: 02/19/25 10:12 STATUS: HEATHER LEONARD #: [id number] SAL: 02/19/25 06:[address]: Mandeep Ryan DEPT: SURGICAL PATHOLOGY RECD BY: Avtar Sherman ENTERED: 02/19/25 14:27 SP TYPE: COLON BX OTHR DR: Shayne Diaz MD Tissues: A - Esophagus, NOS B - Ascending colon Procedures: Surgery Specimen Level IV HEADER OPERATION: Colonoscopy with biopsy, EGD, biopsy with PH probe PRE-OP DIAGNOSIS: Nausea, GERD TISSUE SUBMITTED: A- Distal esophagus biopsy, B- Ascending colon polyp biopsy MICROSCOPIC DIAGNOSIS A. Distal esophagus, biopsy: * Benign squamous epithelium * Cardiac type mucosa with mild chronic inflammation and goblet cells, negative for dysplasia B. Ascending colon, polyp, biopsy: * Tubular adenoma MICROSCOPIC DESCRIPTION Slides are reviewed. GROSS DESCRIPTION A. Received in fixative is one container labeled with the patient's name and designated Distal esophagus biopsy. The specimen consists of two irregular fragments of light shah soft tissue that measure 0.5 and 0.6 cm. The specimen is totally submitted in one cassette. B. Received in fixative is one container labeled with the patient's name and designated Ascending colon polyp biopsy. The specimen consists of three irregular fragments of light shah soft tissue that measure 0.4 to 0.6 cm. The specimen is totally submitted in one cassette. UT 02/19/2025 CPT:67871q6
--- NOTE | 2025-02-19 06:36 | HP.PCM_ITS ---
HPI - General General Date of Admission: 02/19/25 Date of Service: 02/19/25 Chief Complaint: worsening reflux HPI Narrative LEANDRA GUZMAN, is a 69 F who presents the evaluation of worsening reflux HIDA 1.9.24 abnormal 23% EGD and Colonoscopy w/ Dr Sharma 4..24 EGD No gross lesions in the duodenal bulb, in the first portion of the duodenum and in the second portion of the duo denum. No specimens collected. Erythematous mucosa in the antrum. Biopsied. A few gastric polyps. Biopsied. Large hiatal hernia. No specimens collected. Inflamed mucosa in the esophagus. Biopsied. Z-line irregular, 35 cm from the incisors. No specimens collected. Grade II esophageal varices. No specimens collected. A single gastric polyp. Biopsied. The examination was otherwise normal. Colonoscopy Three 4 to 5 mm polyps in the proximal ascending colon, in the mid ascending colon and in the cecum, removed with a hot snare. Resected and retrieved. Likely benign polypoid lesion in the mid ascending colon. Biopsied. Tattooed. One 10 mm, non-bleeding polyp in the proximal transverse colon, removed with a hot snare. Resected and retrieved. One 7 mm polyp in the sigmoid colon, removed with a hot snare. Resected and retrieved. *BGI established 7.29.24 pt reports that she had scopes with Dr Sharma in September 2023 and there was a polyp he was unable to remove and wanted pt to follow up with Dr Ryan. Pt continuing with Pantoprazole 40mg daily. Colonoscopy 8.15.24 Four 1 to 2 mm polyps at the hepatic flexure and in the ascending colon, removed with a hot snare. Resected and retrieved. Clips were placed. 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 The examination was otherwise normal on direct and retroflexion views. OV 6.17.25 pt reports that she has been having dental pain and nausea. Has an appt with her dentist today. Pt states that her ENT increased her pantoprazole to 40mg daily stating that her issues in her throat are coming from acid reflux. [facility] Medical History (Updated 02/19/25 @ 06:[address] Mandeep Ryan, DO) Acid reflux Screening mammogram for breast cancer Hx of sebaceous cyst Abnormal ultrasound of breast Breast cyst Osteoporosis Wears glasses Depression Anxiety Post-menopausal Arthritis Injury of head and neck Injury of back Syncope Gastric reflux Non-smoker History of irregular heartbeat Home Medications ?Medication ?Instructions ?Recorded ?Last Taken ?Type metronidazole 0.75 % topical cream 1 applic topical BI D 07/13/23 02/19/25 History sulfacetamide sodium-sulfur 8 %-4 1 applic topical OLY LY 01/21/24 02/19/25 History % topical suspension alendronate 70 mg tablet 70 mg PO MILLER 04/07/24 5 History omeprazole 40 mg capsule,delayed 40 mg PO QDAY #30 cap s 10/16/24 02/12/25 Rx release Allergy/AdvReac Type Severity Reaction Status Date / Time minocycline Allergy Other Verified 02/19/25 05:50 azithromycin (From Zithromax AdvReac Mild Upset Verified 02/19/25 05:50 Z-Victor M) Stomach Family History Daughter Asthma Mother Arthritis Osteoporosis Skin cancer CVA (cerebral vascular accident) Father Bladder cancer Kidney disease Son Diabetes Grandmother Diabetes Asthma Grandfather CVA (cerebral vascular accident) Arthritis Aunt Breast cancer Surgical History History of cataract extraction S/P breast biopsy, left Hx of breast biopsy Hx of colonoscopy H/O tubal ligation H/O removal of cyst H/O dilation and curettage Social History Smoking Status: Never smoker alcohol intake: never substance use type: does not use ROS Constitutional Constitutional: Denies fatigue, fever(s), poor appetite, weight gain or weight loss Gastrointestinal Gastrointestinal: Denies belching, bloating, change in bowel habits, change in stool character, chewing difficulty, coffee ground emesis, constipation, cramping, diarrhea, dyspepsia, dysphagia, early satiety, excessive flatus, fecal incontinence, heartburn, hematemesis, hematochezia, hemorrhoids, loose stools, melena, nausea, odynophagia, rectal bleeding, tenesmus, vomiting or weight changes Vital Signs Vital Signs Vital Signs: 02/19/25 05:53 02/19/25 05:55 02/19/25 06:18 Temperature 97.5 F L 97.5 F L Temperature Source Temporal Pulse Rate 71 71 Respiratory Rate 16 16 Respiratory Pattern Normal Blood Pressure 134/67 H 134/67 H Blood Pressure Mean 89 Blood Pressure Source Monitor Blood Pressure Position Semi-Fowlers Blood Pressure Location Left Arm Pulse Ox 100 100 Oxygen Delivery Method Room Air Room Air 02/19/25 06:32 Temperature 97.5 F L Temperature Source Pulse Rate 71 Respiratory Rate 16 Respiratory Pattern Blood Pressure 134/67 H Blood Pressure Mean Blood Pressure Source Blood Pressure Position Blood Pressure Location Pulse Ox 100 Oxygen Delivery Method Room Air Weight Weight: 132 lb 3.2 oz Body Mass Index (BMI) 25.8 Physical Exam Const alert, oriented x3, no apparent distress and healthy appearing General Appearance: cooperative GI normal to inspection, nondistended, normoactive bowel sounds, soft to palpation, non-tender and non-distended Percussion: normal to percussion Rectal Exam: deferred Assessment & Plan Assessment/Plan (1) Nausea: (2) GERD (gastroesophageal reflux disease): PLAN: Assessment and Plan Assessment and Plan (1) Sessile colonic polyp: Status: Acute Comment: Patient with at least 6 tubular adenomas predominantly of the right colon. Several of these polyps also showed evidence of high-grade dysplasia. I initially discussed with patient that this may require an elective segmental colectomy, however, I shared pictures with gastroenterology and they feel confident that patient would be a candidate for a lift resection of one of her sessile polyps of the ascending colon. Thus, a referral is made to gastroenterology after today's visit for consideration of endoscopic removal. Update 10/30/2023: Patient has established a consult date with gastroenterology for 01/07/2024 Plan: I did talk with the patient and we discussed the technique of removing sessile polyps in the right side of the colon. I think she is amenable to a submucosal resection of the polyps. The risk of perforation, bleeding, need for emergent surgery was discussed with the patient. (2) Bloating symptom: Status: Acute Comment: This is an associated symptom patient's reflux and upper abdominal discomfort. Recommending EGD with biopsy for rule out H. pylori Plan: She does get intermittent bloating but since being on pantoprazole it has improved her symptoms. I would recommend that she switch to 20 mg of omeprazole. (3) Acid reflux: Status: Acute Comment: Patient remarks of numerous reflux symptoms in the 3 weeks since our last visit. She also complains of some associated fullness. She has never undergone prior endoscopy and does report some symptomatic improvement with Tums. Therefore I have recommended consideration of EGD with biopsy for H. pylori. We will also perform a Pabon procedure.
--- NOTE | 2025-02-19 07:18 | PCM.POST.ANE ---
Anesthesia: Postop Eval I Current Vital Signs Temperature: 97.2 F Pulse Rate: 66 Blood Pressure: 106/66 Respiratory Rate: 16 Pulse Ox: 97 Oxygen Delivery Method: Room Air Assessment Airway patent: Yes Spontaneous unlabored respirations: Yes Mental status: Awake and Calm nausea: No Vomiting: No Anesthesia Complication: No Fluid Hydration Crystalloid volume administer (ml): 400 Total IV fluid infused: 400 Progress Note Anesthesia document: Postop Eval 1 completed: Yes
--- NOTE | 2025-02-19 07:22 | OP.EGD_ITS ---
Patient Name: Yuki Ocampo Procedure Date: 02/19/2025 6:39 AM Date of : 1955 Age: 69 Procedure: Upper GI endoscopy Indications: Heartburn, Failure to respond to medical treatment Providers: Mandeep Ryan DO Referring MD: Shayne Diaz Md Medicines: Monitored Anesthesia Care Patient Profile: This is a 69 year old female. Refer to note in patient chart for documentation of history and physical. Patient has symptoms of chronic heartburn and chronic nausea. Complications: No immediate complications. Procedure: Pre-Anesthesia Assessment: - Prior to the procedure, a History and Physical was performed, and patient medications and allergies were reviewed. The patient is competent. The risks and benefits of the procedure and the sedation options and risks were discussed with the patient. All questions were answered and informed consent was obtained. Patient identification and proposed procedure were verified by the physician in the pre-procedure area. Mental Status Examination: alert and oriented. Airway Examination: normal oropharyngeal airway and neck mobility. Respiratory Examination: clear to auscultation. CV Examination: normal. Prophylactic Antibiotics: The patient does not require prophylactic antibiotics. Prior Anticoagulants: The patient has taken no anticoagulant or antiplatelet agents except for NSAID medication. ASA Grade Assessment: II - A patient with mild systemic disease. After reviewing the risks and benefits, the patient was deemed in satisfactory condition to undergo the procedure. The anesthesia plan was to use monitored anesthesia care (MAC). Immediately prior to administration of medications, the patient was re-assessed for adequacy to receive sedatives. The heart rate, respiratory rate, oxygen saturations, blood pressure, adequacy of pulmonary ventilation, and response to care were monitored throughout the procedure. The physical status of the patient was re-assessed after the procedure. After obtaining informed consent, the endoscope was passed under direct vision. Throughout the procedure, the patient's blood pressure, pulse, and oxygen saturations were monitored continuously. The gastroscope was introduced through the mouth, and advanced to the second part of duodenum. The upper GI endoscopy was accomplished without difficulty. The patient tolerated the procedure well. Scope In: 6:53:29 AM Scope Out: 6:59:22 AM Total Procedure Duration Time 0 hours 5 minutes 53 seconds Findings: LA Grade A (one or more mucosal breaks less than 5 mm, not extending between tops of 2 mucosal folds) esophagitis with no bleeding was found 38 to 40 cm from the incisors. Biopsies were taken with a cold forceps for histology. Verification of patient identification for the specimen was done. Estimated blood loss was minimal. The FULLER capsule with delivery system was introduced through the mouth and advanced into the esophagus, such that the FULLER pH capsule was positioned 36 cm from the incisors, which was 6 cm proximal to the GE junction. Suction was applied to the well of the FULLER pH capsule to suck in the adjacent mucosa of the esophagus using the external vacuum pump set at a minimum vacuum pressure of 550 mmHg for 30 seconds. The FULLER pH capsule was then deployed by depressing the plunger on top of the handle to advance the locking pin into the mucosa, thereby attaching the capsule to the esophagus. The plunger was then rotated a quarter turn clockwise to release the capsule from the delivery system. The delivery system was then withdrawn. Endoscopy was utilized for probe placement and diagnostic evaluation. No gross lesions were noted in the entire examined stomach. No gross lesions were noted in the entire examined duodenum. Impression: - LA Grade A reflux esophagitis with no bleeding. Biopsied. - No gross lesions in the entire stomach. - No gross lesions in the entire examined duodenum. - The FULLER pH capsule was positioned 36 cm from the incisors, which was 6 cm proximal to the GE junction. Recommendation: - Discharge patient to home. - Resume previous diet. - Continue present medications. - Await pathology results. Procedure Code(s): --- Professional --- 03850, Esophagogastroduodenoscopy, flexible, transoral; with biopsy, single or multiple CPT copyright 2021 [employer]. All rights reserved. The codes documented in this report are preliminary and upon income tax advisor review may be revised to meet current compliance requirements. Mandeep Ryan DO 02/19/2025 7:21:59 AM This report has been signed electronically. Number of Addenda: 0 Note Initiated On: 02/19/2025 6:39 AM
--- NOTE | 2025-02-19 07:23 | OP.PROVAT_ITS ---
02/19/2025 Shayne Diaz Md Re : Upper GI endoscopy procedure for Yuki Ocampo Dear Joe This procedure was performed on February. My impressions and recommendations are as follows: Impressions : - LA Grade A reflux esophagitis with no bleeding. Biopsied. - No gross lesions in the entire stomach. - No gross lesions in the entire examined duodenum. - The FULLER pH capsule was positioned 36 cm from the incisors, which was 6 cm proximal to the GE junction. Recommendations : - Discharge patient to home. - Resume previous diet. - Continue present medications. - Await pathology results. My findings are described in the full procedure note, which is enclosed. If I can be of further assistance, please feel free to contact me at . Sincerely, Mandeep Friend, 02/19/2025 7:21:59 AM This report has been signed electronically.
--- NOTE | 2025-02-19 07:25 | OP.COLON_ITS ---
Patient Name: Yuki Ocampo Procedure Date: 02/19/2025 6:59 AM Date of : 1955 Age: 69 Procedure: Colonoscopy Indications: Screening for colorectal malignant neoplasm Providers: Mandeep Ryan DO Referring MD: Shayne Diaz Md Medicines: Monitored Anesthesia Care Patient Profile: This is a 69 year old female. Refer to note in patient chart for documentation of history and physical. Patient has symptoms of chronic heartburn and chronic nausea. Last Colonoscopy: several years ago. Complications: No immediate complications. Procedure: Pre-Anesthesia Assessment: - Prior to the procedure, a History and Physical was performed, and patient medications and allergies were reviewed. The patient is competent. The risks and benefits of the procedure and the sedation options and risks were discussed with the patient. All questions were answered and informed consent was obtained. Patient identification and proposed procedure were verified by the physician in the pre-procedure area. Mental Status Examination: alert and oriented. Airway Examination: normal oropharyngeal airway and neck mobility. Respiratory Examination: clear to auscultation. CV Examination: normal. Prophylactic Antibiotics: The patient does not require prophylactic antibiotics. Prior Anticoagulants: The patient has taken no anticoagulant or antiplatelet agents except for NSAID medication. ASA Grade Assessment: II - A patient with mild systemic disease. After reviewing the risks and benefits, the patient was deemed in satisfactory condition to undergo the procedure. The anesthesia plan was to use monitored anesthesia care (MAC). Immediately prior to administration of medications, the patient was re-assessed for adequacy to receive sedatives. The heart rate, respiratory rate, oxygen saturations, blood pressure, adequacy of pulmonary ventilation, and response to care were monitored throughout the procedure. The physical status of the patient was re-assessed after the procedure. After I obtained informed consent, the scope was passed under direct vision. Throughout the procedure, the patient's blood pressure, pulse, and oxygen saturations were monitored continuously. The colonoscope was introduced through the anus and advanced to the cecum, identified by appendiceal orifice and ileocecal valve. The colonoscopy was performed without difficulty. The patient tolerated the procedure well. The quality of the bowel preparation was adequate. The ileocecal valve, appendiceal orifice, and rectum were photographed. Scope In: 7:01:56 AM Scope Withdrawal Time 0 hours 9 minutes 9 seconds Scope Out: 7:12:33 AM Total Procedure Duration Time 0 hours 10 minutes 37 seconds Findings: The perianal and digital rectal examinations were normal. A few small-mouthed diverticula were found in the sigmoid colon. Three sessile polyps were found in the ascending colon. The polyps were 7 mm in size. These polyps were removed with a jumbo cold forceps. Resection and retrieval were complete. Verification of patient identification for the specimen was done. Estimated blood loss was minimal. The exam was otherwise without abnormality on direct and retroflexion views. Impression: - Diverticulosis in the sigmoid colon. - Three 7 mm polyps in the ascending colon, removed with a jumbo cold forceps. Resected and retrieved. - The examination was otherwise normal on direct and retroflexion views. Recommendation: - Discharge patient to home. - Resume previous diet. - Continue present medications. - Await pathology results. - Repeat colonoscopy in 5 years for surveillance. Procedure Code(s): --- Professional --- 43515, Colonoscopy, flexible; with biopsy, single or multiple CPT copyright 2021 [employer]. All rights reserved. The codes documented in this report are preliminary and upon climatology professor review may be revised to meet current compliance requirements. Mandeep Ryan DO 02/19/2025 7:24:40 AM This report has been signed electronically. Number of Addenda: 0 Note Initiated On: 02/19/2025 6:59 AM
--- NOTE | 2025-02-19 07:25 | OP.PROVAT_ITS ---
02/19/2025 Shayne Diaz Md Re : Colonoscopy procedure for Yuki Ocampo Dear Joe This procedure was performed on February. My impressions and recommendations are as follows: Impressions : - Diverticulosis in the sigmoid colon. - Three 7 mm polyps in the ascending colon, removed with a jumbo cold forceps. Resected and retrieved. - The examination was otherwise normal on direct and retroflexion views. Recommendations : - Discharge patient to home. - Resume previous diet. - Continue present medications. - Await pathology results. - Repeat colonoscopy in 5 years for surveillance. My findings are described in the full procedure note, which is enclosed. If I can be of further assistance, please feel free to contact me at . Sincerely, Mandeep Ryan, 02/19/2025 7:24:40 AM This report has been signed electronically.
--- NOTE | 2025-02-19 09:54 | POSTOPAN2_ITS ---
Anesthesia Postop Eval I Sum Postop Eval Completion status Anesthesia document: Postop Eval 1 completed: Yes Anesthesia Postop Eval I Summary Anesthesia Postop Eval I Summary: Anesthesia Postop Eval I: Assessment Summary Airway patent Yes 02/19/25 07:18 [email or web address] Spontaneous unlabored Yes 02/19/25 07:18 FOOD [email or web address] respirations Mental status Awake,Calm 02/19/25 07:18 FOOD [email or web address] nausea No 02/19/25 07:18 FOOD [email or web address].MEDM Vomiting No 02/19/25 07:18 FOOD [email or web address].MEDM Anesthesia Postop Eval I: Fluid Summary Crystalloid volume administer 400 02/19/25 07:18 FOOD [email or web address].MEDM (ml) Colloids volume administered ( ml) Blood Product volume administered (ml) Total IV fluid infused 400 02/19/25 07:18 FOOD [email or web address] Anesthesia Postop Eval I: Summary Notes Anesthesia Complication No 02/19/25 07:18 FOOD [email or web address].MEDM Anesthesia Complication Comment: Post-operative progress note Anesthesia: Postop Eval II Evaluation Mental status: Awake and Calm Pain Level: 0 nausea: No Vomiting: No Complications Anesthesia Complication: No
--- NOTE | 2025-02-19 09:54 | PCM.POSTANE2 ---
Anesthesia Postop Eval I Sum Postop Eval Completion status Anesthesia document: Postop Eval 1 completed: Yes Anesthesia Postop Eval I Summary Anesthesia Postop Eval I Summary: Anesthesia Postop Eval I: Assessment Summary Airway patent Yes 02/19/25 07:18 LAP [email or web address] Spontaneous unlabored Yes 02/19/25 07:18 LAP [email or web address] respirations Mental status Awake,Calm 02/19/25 07:18 LAP [email or web address] nausea No 02/19/25 07:18 LAP [email or web address].MEDM Vomiting No 02/19/25 07:18 LAP [email or web address].MEDM Anesthesia Postop Eval I: Fluid Summary Crystalloid volume administer 400 02/19/25 07:18 LAP [email or web address].MEDM (ml) Colloids volume administered ( ml) Blood Product volume administered (ml) Total IV fluid infused 400 02/19/25 07:18 LAP [email or web address].MEDM Anesthesia Postop Eval I: Summary Notes Anesthesia Complication No 02/19/25 07:18 LAP [email or web address].MEDM Anesthesia Complication Comment: Post-operative progress note Anesthesia: Postop Eval II Evaluation Mental status: Awake and Calm Pain Level: 0 nausea: No Vomiting: No Complications Anesthesia Complication: No
== END 2025-02-19 08:36 | disposition home or self-care (01) ==
LOC: EN 05:31 → AC 05:32
PROVIDERS: PCP Family Medicine; Referring Provider Family Medicine; Visit Provider Internal Medicine Gastroenterology
PROC: 0DJD8ZZ Inspection of Lower Intestinal Tract, Via Natural or Artificial Opening Endoscopic (ICD-10-PCS; CPT 45378; principal; 2025-02-19 06:25)
DX: K21.00 Gastro-esophageal reflux disease with esophagitis, without bleeding (principal); K57.30 Diverticulosis of large intestine without perforation or abscess without bleeding; Z79.83 Long term (current) use of bisphosphonates; D12.2 Benign neoplasm of ascending colon
CPT/HCPCS: 45380; 43239; 88305; J2405

== ENCOUNTER → 2025-03-25 | Outpatient (CLI) | payer MEDICARE, OTHER, SELFPAY ==
--- NOTE | 2025-03-25 12:25 | NM_ITS ---
PROCEDURE: GASTRIC EMPTYING STUDY 03/25/2025 REASON FOR EXAM: GERD COMPARISON: None TECHNIQUE: Procedure Code: NMGES Modality: NM Procedure: GASTRIC EMPTYING STUDY The patient ingested a standard meal of cooked egg whites mixed with , oatmeal, and water. There was no vomiting postprandially. Anterior and posterior planar images of the upper abdomen were obtained for 1 minute immediately following the meal at 1h, 2h and 4h if more than 10% of the activity persisted within the stomach. Regions of interest were drawn, and a geometric mean was used to calculate a [id number]. RADIOPHARMACEUTICAL: Sulfur colloid DOSE 1.2mCi FINDINGS: Percent activity remaining in stomach: 1 hour 11 % (normal 37-90%) NM/Gastric Emptying Study IMPRESSION: Normal gastric emptying examination. Reading Location: [place] [id number]
== END | disposition home or self-care (01) ==
LOC: NM 12:25
PROVIDERS: PCP Family Medicine; Referring Provider Internal Medicine Gastroenterology; Visit Provider Internal Medicine Gastroenterology
DX: K21.9 Gastro-esophageal reflux disease without esophagitis (principal)
CPT/HCPCS: 78264; A9541

== ENCOUNTER → 2025-03-31 | Outpatient (CLI) | payer MEDICARE, OTHER, SELFPAY ==
--- NOTE | 2025-03-31 08:37 | BI_ITS ---
EXAM: SCRN MAMM (CAD)W/LAVON BILAT DATE: 03/31/2025 CLINICAL HISTORY: F, Age 69 y/o , SCREENING Prior ultrasound guided breast biopsy and left excisional breast biopsy for atypical ductal hyperplasia. TECHNIQUE: Procedure Code: [id number] Modality: MG Procedure: SCRN MAMM (CAD)W/ALVON BILAT COMPARISON: Prior exam(s) dated January 16, 2024.. FINDINGS: TISSUE DENSITY: The breasts are heterogeneously dense, which may obscure small masses. Bilateral Breast Mammographic Findings: No significant masses, calcifications or other abnormalities are identified. Surgical clips are seen in the deep central aspect of the left breast in keeping with prior excisional breast biopsy. No suspicious abnormality is seen. BI/SCRN MAMM (CAD)W/LAVON BILAT IMPRESSION: Status post left excisional breast biopsy. OVERALL FINAL ASSESSMENT BI-RADS 2: BENIGN RECOMMENDATION: Routine annual follow-up in 1 Year Additional Recommendation none A letter with findings and recommendations will be mailed to the patient. Reading Location: [facility]
== END | disposition home or self-care (01) ==
LOC: OPBI 08:36
PROVIDERS: PCP Family Medicine; Referring Provider Surgery; Visit Provider Surgery
DX: Z12.31 Encounter for screening mammogram for malignant neoplasm of breast (principal)
CPT/HCPCS: 77063; 77067

== ENCOUNTER → 2025-05-20 | Outpatient (CLI) | payer MEDICARE, OTHER, SELFPAY ==
[2025-05-25 15:08] LABS: HPV APTIMA, High Risk Negative (Negative)
== END | disposition home or self-care (01) ==
LOC: LABSPEC 16:27
PROVIDERS: PCP Family Medicine; Visit Provider Nurse Practitioner Family
DX: Z12.4 Encounter for screening for malignant neoplasm of cervix (principal)
CPT/HCPCS: 87624; 88175; G0145

== ENCOUNTER → 2025-05-27 | Outpatient (CLI) | payer MEDICARE, OTHER, SELFPAY ==
--- NOTE | 2025-05-27 13:09 | US_ITS ---
PROCEDURE: PELVIC W/ TRANSVAGINAL REASON FOR EXAM: UTERINE MASS Patient is postmenopausal. TECHNIQUE: Procedure Code: [id number] Modality: US Procedure: PELVIC W/ TRANSVAGINAL COMPARISON: None FINDINGS: Measurements: Uterus: 6.7 cm x 4.6 cm x 3.3 cm with a volume of 53.8 mL Endometrial Thickness: 4 mm. This is thickened. Right Ovary: 3.8 cm x 2.7 cm x 1.8 cm with a volume of 9.5 mL. Left Ovary: Not visualized. TRANSABDOMINAL: Uterus: Fibroid uterus. Endometrium: Endometrium is 4 mm. This is thickened. Right ovary: 3.8 cm 3.6 cm 2.2 cm right adnexal mass with posterior shadowing. A dermoid should be ruled out. Left ovary: Not visualized. Other: No large pelvic mass identified. Transvaginal sonography was performed to better visualize the endometrium. TRANSVAGINAL: Uterus: Retroverted. Myometrium appears heterogeneous. Endometrium: Thickened. It measures 4 mm. Right ovary: Complex mass in the right adnexa with posterior shadowing. A dermoid should be ruled out. Left ovary: Not visualized. Other adnexal findings: None. Cul-de-sac: No free intraperitoneal fluid identified. Tenderness: No tenderness US/Pelvic w/ Transvaginal IMPRESSION: Shadowing mass in the right adnexa as described. A dermoid should be ruled out . Heterogeneous appearance of the uterus in keeping with fibroid change although no focal fibroid is seen. Endometrial thickening measuring 4 mm. Reading Location: [id number]
== END | disposition home or self-care (01) ==
LOC: US 13:06
PROVIDERS: PCP Family Medicine; Referring Provider Nurse Practitioner Family; Visit Provider Nurse Practitioner Family
DX: N85.8 Other specified noninflammatory disorders of uterus (principal)
CPT/HCPCS: 76830; 76856